=== PATIENT | female | born 1930 | race Caucasian/White ===

== ENCOUNTER 2016-05-17 09:23 | Outpatient (CLI) | payer MEDICARE, OTHER ==
[~2016-05-17] VITALS: Ht 157.5 cm; Wt 65.5 kg
[~2016-05-17 09:23] MED LIST: AMLO2.5T PO; ASPI-731 PO; CALC-656 PO; CEPH500C PO; DCS100C PO; DIPH25TA82 PO; ESTR0.5T3 PO; HYDR-3714 PO; LABE100T2 PO; LANS30CA8 PO; LRT10T PO; LVT.088T PO; MINERALS PO; POTASSIUM PO
[2016-05-17] MEDS ORDERED: GABA-488 PO (09:37)
[2016-05-17] MEDS ORDERED: [UNRECOGNIZED DRUG - CODE] PO (09:37)
[2016-05-17] MEDS ORDERED: PAPA1TAB11 PO (09:37)
[2016-05-17] MEDS ORDERED: GARL10002 PO (09:37)
[2016-05-17] MEDS ORDERED: PANT40TA3 PO (09:37)
[2016-05-17 09:44] VITALS: BP 117/68
== END 2016-05-17 10:08 | disposition home or self-care (01) ==
LOC: PREOP 09:23
PROVIDERS: ATTEND Podiatrist Foot & Ankle Surgery
DX: Z01.818 Encounter for other preprocedural examination (principal); Z11.2 Encounter for screening for other bacterial diseases; M20.12 Hallux valgus (acquired), left foot; M20.42 Other hammer toe(s) (acquired), left foot; M21.622 Bunionette of left foot
CPT/HCPCS: 87081

== ENCOUNTER 2016-05-20 10:42 | Day surgery (SDC) | payer MEDICARE, OTHER ==
--- NOTE | 2016-05-17 12:41 | HISTORY AND PHYSICAL ---
DATE OF ADMISSION: 05/20/2016 DICTATING PHYSICIAN: Dr. Barton CHIEF COMPLAINT: To have left foot surgery by Dr. Juarez, a bunion and 3 hammertoes corrected. ALLERGIC TO MEDICATIONS: CODEINE. MEDICATIONS NOW ON: 1. Amlodipine 2.5 mg. 2. Baby aspirin 85. 3. Levothyroxine 88. 4. Labetalol 100 mg half tablet a day. 5. Estradiol 0.5 mg 1 tablet 3 times a week. 6. Benadryl 25 mg 1 daily. 7. Gabapentin 300 mg, 1 t.i.d. 8. Potassium 84 mg 1 b.i.d. 9. Calcium plus vitamin D 1 b.i.d. 10. Papaya enzyme complex 2 tablets 2 times a day. 11. Protonix 1 daily. 12. Metoclopramide 1 tablet daily. 13. Garlic 1000 mg. SURGERIES: 1. Bleeding diverticula 2014. 2. Cataract surgery both eyes. 3. Bleeding cyst in ovary. 4. Had hysterectomy. 5. Rectal repair. 6. Gallbladder surgery. 7. Knee replacement. 8. Toe operated on. 9. Cervical cancer. 10. Rotator cuff surgery, left upper arm. 11. Bunion removed right foot. 12. 2 lumps removed from left breast. 13. Screen put in vagina. 14. Rotary cuff surgery on right shoulder. 15. Toe operations on right foot. FAMILY HISTORY: Denies asthma, TB, diabetes, heart disease, lung disease, cancer. REVIEW OF SYSTEMS: HEAD: Denies headache, dizziness, fainting. EYES, EARS, NOSE, THROAT: Denies diplopia, tinnitus, sore throat. HEART: Denies heart murmur, chest pain, shortness of breath. LUNGS: Denies asthma, TB, coughing, congestion, smoking or wheezing. GASTROINTESTINAL: Appetite okay. Denies blood, pain, or frequency. GENITOURINARY: Denies dysuria, pyuria, hematuria. GASTROINTESTINAL: Denies ulcers or vomiting. PHYSICAL EXAMINATION: The patient is a white female, well-nourished, well-developed, in no acute respiratory distress at rest. Weight 142, blood pressure 110/70, pulse 72. EARS: Not inflamed. EYES: No conjunctivitis or icterus. THROAT: Not inflamed. NECK: Thyroid not enlarged. No abnormal cervical lymphadenopathy noted. No carotid bruits. HEART: Regular rate and rhythm. LUNGS: Clear to auscultation. ABDOMEN: Soft. Liver and spleen nonpalpable. EXTREMITIES: No pretibial edema. Good dorsalis pedis pulses. PLAN: The patient okay to have surgery. We will be on standby if has any problems. Job ID: [id number] Dictated Date: 05/17/2016 11:58:02 Early Childhood Director Date: 05/17/2016 12:34:21/laure
[~2016-05-20] VITALS: Ht 157.5 cm; Wt 65.5 kg
[~2016-05-20 10:42] MED LIST changes: +GABA-488 PO; +GARL10002 PO; +PANT40TA3 PO; +PAPA1TAB11 PO; +[UNRECOGNIZED DRUG - CODE] PO
[2016-05-20] MEDS ORDERED: ceFAZolin 1 GM/NS 50 ML IVPB IV ONE ×2 (11:30)
[2016-05-20 12:00] VITALS: BP 134/77
[2016-05-20] MEDS ORDERED: DEXAMETHASONE PF 10 MG/ML (DECADRON) VIAL ONE ×2 (12:28→13:57)
[2016-05-20] MEDS ORDERED: LIDOCAINE 1% INJ 20 ML (XYLOCAINE) VIAL ONE (12:28)
[2016-05-20] MEDS ORDERED: BUPIVACAINE 0.5% 30 ML (SENSORCAINE) VIAL ONE (12:28)
[2016-05-20] MEDS: LACTATED RINGERS 1,000 ML IV PRN ×2 (12:29→14:03)
[2016-05-20] MEDS ORDERED: FAMOTIDINE 20MG/2ML IV (PEPCID) IVP ONE (12:30)
[2016-05-20] MEDS ORDERED: proPOfol 200 MG/20 ML (DIPRIVAN) VIAL IV ONE (12:30)
[2016-05-20] MEDS ORDERED: SEVOFLURANE (ULTANE) 15 ML INHAL SOLN ONE ×9 (12:30→15:14)
[2016-05-20] MEDS ORDERED: LIDOCAINE PF 2% 10 ML (XYLOCAINE) AMP ONE (12:30)
[2016-05-20] MEDS ORDERED: fentaNYL INJECTION 100 MCG/2 ML AMP ONE ×2 (12:30→13:48)
[2016-05-20] MEDS ORDERED: MIDAZOLAM 2 MG/2 ML (VERSED) VIAL ONE (12:30)
[2016-05-20] MEDS ORDERED: LACTATED RINGERS 1,000 ML IV ONE ×2 (12:30→13:39)
--- NOTE | 2016-05-20 12:38 | Progress Note-Pre Operative ---
Pre-Operative Progress Note H&P Reviewed The H&P was reviewed, patient examined and no changes noted. Date H&P Reviewed: May 20, 2016 Time H&P Reviewed: 12:38 Pre-Operative Diagnosis: Hallux Valgus, Hammertoes 2,3,4,5, Tailor's bunion, all left foot ZOEY PERDUE DPM May 20, 2016 12:38 pm
[2016-05-20] MEDS ORDERED: ESMOLOL 100 MG/10 ML (BREVIBLOC) VIAL ONE (14:33)
[2016-05-20] MEDS ORDERED: ONDANSETRON 4 MG/2 ML (SDV) Z0FRAN IV PRN (15:30)
[2016-05-20] MEDS ORDERED: morphine INJ 10 MG/ML 1ML (SYR OR VIAL) IV PRN (15:30)
--- NOTE | 2016-05-20 15:33 | Progress Note-Post Operative ---
Post-Operative Progess Note Surgeon (s)/Toy Trains And Accessories Salesperson (s) Surgeon ZOEY PERDUE DPM Toy Tra[employer] And Accessories Salesperson: none Pre-Operative Diagnosis Hallux Valgus, Hammertoes 2,3,4,5, Tailor's bunion, all left foot Post-Operative Diagnosis Same Post-Op Procedure Note Date of Procedure: May 20, 2016 Name of Procedure Performed: Modified Freed bunionectomy left Reduction of Hammertoes 2,3,4,5 left Tailor's bunoinectomy, left Description of the Procedure: see above Findings of the Procedure Good reduction of deformities Anesthesia Type General Estimated blood loss (mL): Minimal Specimen(s) collected/removed none ZOEY PERDUE DPM May 20, 2016 3:33 pm
[2016-05-20] MEDS ORDERED: LACTATED RINGERS 1,000 ML IV SCH (15:34)
[2016-05-20] MEDS ORDERED: HYDR-3812 PO (15:37)
[2016-05-20] MEDS ORDERED: TRAM-42 PO (15:37)
[2016-05-20] MEDS ORDERED: CEPH500C PO (15:37)
[2016-05-20] MEDS ORDERED: ONDANSETRON 4 MG/2 ML (SDV) Z0FRAN IVP PRN (15:45)
[2016-05-20] MEDS ORDERED: HYDROcodone/APAP 5 MG/325 MG (LORTAB) TAB PO PRN (15:45)
[2016-05-20 16:20] VITALS: BP 140/94
[2016-05-20 16:50] VITALS: BP 147/77
--- NOTE | 2016-05-20 17:04 | Physical Therapy Ortho Eval ---
PT Orthopedic Evaluation Type of Surgery left bunionectomy and repair of 4 hammer toes Prior Level of Function Current Living Status: Spouse Locomotion (Upon Admit): Independent Established Durable Medical Eq: Shower Chair, 3 in 1 Commode, Toilet Riser, Crutches Subjective Subjective Pt reports this was elective surgery. She has been through it before. Pt has used crutches previously following orthopedic surgery. She reports no nausea or pain. Entry Into Home: Level Entry Steps Into Home: 0 Steps Inside Home: 0 Other Obstacles: reports no stairs to get into the home. Objective Objective LE ROM is WFL, (B) strength gross 4/5 Motor Control Motor Control: Motor Control WNL ROM ROM: WFL Strength Strength: WFL gross 4/5 throughout (B) LEs Transfer Transfers (B, C, W/C) (FIM): 5 supervision for safety Gait Gait Assistive Device: Crutches stable using crutches with PWB on the (L). Used a 4 point gait pattern. Slow but steady with juliet. Distance (FIM): 7=490-55 ft Distance: 50 Gait Level of Assist: 5 Summary/Comments Pt safe with ambulation using crutches on level surface. advised to assist by opening doors and clearing any obstructions. Treatment Rendered Treatment: Gait Train educated on safety and PWB status. Plan Treatment Plan: Discharge Pt seen one visit for instruction on use of axillary crutches, education on home safety, and PWB. Pt is dismissed from therapy at this time to be discharged to home as prior to admission. Functional codes based on ojbective measures G8978 CI G8979 CI G8980 CI PT/Family Agrees to Plan: Yes Time Time In: 1640 Time Out: 1705 Total Billed Treatment Time: 25 Billed Treatment Time visit, evaluation low complexity 25 minutes Yes JESSICA GARIBAY PT May 20, 2016 17:04
[2016-05-20 17:20] VITALS: BP 147/77
[2016-05-20 17:40] VITALS: BP 147/77
--- NOTE | 2016-05-20 18:26 | Diagnostic Imaging Report ---
INDICATION: Postop for left hallux hammertoe. FINDINGS: There are pins within the second, third, and fourth phalanges. Alignment is good. There is a moderate valgus deformity of the first MP joint. There is anchor screw within the lateral navicular. IMPRESSION: Postoperative pinning of the second, third, and fourth toes. Dictated by: Dictated on workstation # [id number]
--- NOTE | 2016-05-23 08:36 | OPERATIVE REPORT ---
PROCEDURE PHYSICIAN: JENNIFER PERDUE DATE OF PROCEDURE: 05/20/2016 SURGEON: Jennifer Perdue DPM PREOPERATIVE DIAGNOSES: 1. Hallux abductovalgus. 2. 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 3. Amy's bunion, left foot. POSTOPERATIVE DIAGNOSES: 1. Hallux abductovalgus. 2. 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 3. Amy's bunion, left foot. PROCEDURES: 1. Modified Freed bunionectomy, left. 2. Reduction of hammertoe with arthrodesis, second, 3rd and 4th digits, left foot. 3. Arthroplasty left 5th toe. 4. Amy's bunionectomy, left 5th metatarsal. WOUND CLASS: Clean. ANESTHESIA: General. HEMOSTASIS: Pneumatic thigh tourniquet at 250 mmHg. INDICATION: This 86-year-old female presents complaining of a painful left foot. Conservative therapy is met with unsatisfactory results and the patient is agreeable to surgical intervention after risk and complications were discussed at length. No guarantees were extended to the patient and she is willing to proceed. PROCEDURE: The patient was brought back to operating table, placed in a secure, supine position. General anesthetic was then induced. A pneumatic thigh tourniquet was placed on the left lower extremity over several layers of padding. The left foot was then prepped and draped in normal sterile manner. The left foot was then elevated, allowed to exsanguinate after which the tourniquet was inflated to 250 mmHg. Attention was then directed to the left first metatarsophalangeal joint where a 5 cm longitudinal linear incision was created. The incision was deepened in the same plane with great care to identify and retract all vital neurovascular structures. Only necessary blood vessels were cauterized as encountered. The incision was deepened down to the capsular tissue where a longitudinal capsulotomy was performed. The medial eminence of the first metatarsal head was resected utilizing a power sagittal saw. Next, a lateral release was performed. Blunt dissection was carried out into the first intermetatarsal space where the conjoined tendon of the abductor hallucis was identified and released. The lateral capsular tissue was also released with lateral capsulorrhaphy and fibular sesamoidal ligament release. The hallux was then forcibly abducted to release any additional fibers holding it in its abnormal position. Appropriate alignment of the left hallux was then appreciated at this time. The wound was flushed with copious amounts of normal saline and closure was then performed in layers. Deep closure was performed with 3-0 Vicryl, superficial with 4-0 Vicryl, skin closure with 4-0 Prolene in a horizontal mattress type stitch. Attention was then directed to the contracted toes 3, 4 and 5, where the same procedure was performed. An incision was created from the metatarsal phalangeal joint to the distal interphalangeal joint of the second, 3rd and 4th rays. The incisions were then deepened in the same plane with great care to identify and retract all vital neurovascular structures. Only necessary blood vessels were cauterized as encountered. The extensor tendons were then lengthened utilizing a Z slide lengthening technique. The extensor peters was released overlying the metatarsal phalangeal joint. A dorsal capsulorrhaphy as well as a release of the mediolateral, collateral ligaments was performed to the second, 3rd and 4th metatarsophalangeal joints. This allowed the proximal phalanx to come down into more rectus alignment. Next, utilizing a power sagittal saw, a Peg was created at the head of the proximal phalanx, followed by using a power bur. A hole was created to the base of the middle phalanx with a power bur. The wound was flushed with copious amounts of normal saline. Each the digit was then fixated in its corrected position utilizing a 0.054 K wire driven from proximal to distal, securing the arthrodesis sites in a rectus alignment. Appropriate alignment was appreciated to each digit. The excess K wire coming out of the toe was cut and a protective ball placed over the end of the wire. The wound was flushed with copious amounts of normal saline and closure was then performed in layers. Deep closure was performed with 3-0 Vicryl. Superficial closure was performed with 4-0 Vicryl, and skin closure with 4-0 Prolene in a horizontal mattress type stitch. Attention was then directed to the left 5th digit where adductovarus contracture was identified. Two semielliptical incisions were created at the dorsal aspect of the proximal interphalangeal joint in a proximal lateral to distal medial orientation. The circumscribed skin was removed in toto. Dissection was then carried out sharply through the extensor tendon. Release of the mediolateral, collateral ligaments allowed for visualization of the hypertrophic head of the proximal phalanx. The head turning machine operator was then resected utilizing a power sagittal saw. The wound was flushed with copious amounts of normal saline and closure was performed in layers. Deep closure was performed with 4-0 Vicryl, skin was reapproximated with 4-0 Vicryl, followed by 4-0 Prolene in a simple interrupted type stitch. Because the orientation of the incision, the digit was derotated into more rectus alignment. Attention was then directed to the dorsal aspect of the left 5th metatarsal head area where a 2.5 cm longitudinal linear incision was created. The incision was deepened down to the extensor tendon overlying the head of the 5th metatarsal which was quite tight. The tendon then had a Z-slide lengthening performed, allowing the proximal phalanx to come down into more rectus alignment. The incision was deepened down to the capsule and a lateral eminence to the 5th metatarsal head was identified and resected utilizing a power sagittal saw. A hand rasp was also utilized to smooth the 5th metatarsal head. The wound was flushed with copious amounts of normal saline and closure was performed in layers. Deep closure was performed with 3-0 Vicryl, superficial with 4-0 Vicryl, and skin closure with 4-0 Prolene in a horizontal mattress type stitch. Postoperative injection consisted of 24 mL of 0.5% Marcaine injected in a local infusion to the surgical sites. The tourniquet was released noting appropriate capillary fill time to all digits of the left foot. Postoperative dressing consisted of Betadine soaked Adaptic, sterile 4 x 4, sterile Kerlix, all secured with a Coban wrap. The patient tolerated the anesthesia and procedure well. She was transported from the operating room to the recovery area with vital signs stable and vascular status intact to all digits of the left foot. The patient was given postoperative instructions for partial weight-bearing with crutches. She was also given a prescription for Vicodin and Ultram. She indicated that she has a reaction to codeine but that was quite some time ago. She has never tried Vicodin before, so that was given to her as the first line of treatment for pain. If she has a GI reaction she will have Ultram as a backup. She was also given a prescription for Keflex. She is to follow-up in my office on 05/30 at 10 a.m. or sooner if necessary. Job ID: [id number] Dictated Date: 05/20/2016 15:51:15 Residential Sales Consultant Date: 05/23/2016 08:21:12 / laure
--- OUTSIDE RECORDS SUMMARY | 2016-06-12 08:08 | XMS REPORT | Continuity of Care Document ---
Author Author [facility] Organization [facility] Address Unknown Phone Unavailable Care Team Providers Care Heel Painter Name Role Phone Quispe Tamera PCP Unavailable Source Comments Some departments are not documenting in the electronic medical record. If you do not see the information that you expected, contact Release of Information in the Health Information Management department at [phone] for further assistance in locating additional records.[facility] Active Allergies and Adverse Reactions Allergen Noted Date Severity Reactions Comments Hydrocodone-Acetaminophen 06/22/2015 Low NAUSEA AND VOMITING Current Medications Prescription Sig. Disp. Refills Start End Date Status Date gabapentin (NEURONTIN) Take 300 mg by mouth Active 300 mg capsule three times daily. amLODIPine (NORVASC) 2.5 Take 2.5 mg by mouth Active mg tablet daily. BABY ASPIRIN PO Take by mouth daily. Active levothyroxine (SYNTHROID) Take 88 mcg by mouth Active 88 mcg tablet daily. labetalol (NORMODYNE) 100 Take 100 mg by mouth Active mg tablet daily. Indications: Per Patient 1/2 tab daily norethindrone/ethinyl Take 1 Tab by mouth three Active estradiol triphasic(+) times weekly. (ORTHO-NOVUM 7-7-7) 0.5/0.75/1-35 mg-mcg tablet loratadine (CLARITIN) 10 Take 10 mg by mouth Active mg tablet daily. Garlic 1,000 mg cap Take by mouth twice Active weekly. POTASSIUM PO Take by mouth twice Active daily. CALCIUM CARBONATE/VITAMIN Take by mouth twice Active D3 (CALCIUM + D PO) daily. pantoprazole DR Take 40 mg by mouth Active (PROTONIX) 40 mg tablet daily. PAPAYA ENZYME PO Take by mouth three Active times daily. Indications: 2 tablets 3 times a day melatonin 10 mg tab Take by mouth as Needed. Active WHEAT DEXTRIN/CALCIUM Take by mouth twice Active NO.15 (BENEFIBER PLUS daily. Indications: Per CALCIUM PO) patient 1 tablet SUCRALFATE PO Take by mouth twice Active daily. Indications: Per Patient 4 tablets Active Problems No known active problems Social History Tobacco Use Types Packs/Day Years Used Date Never Smoker Smokeless Tobacco: Never Used Alcohol Use Drinks/Week oz/Week Comments Yes 0 Standard 0.0 drinks or equivalent Last Filed Vital Signs Vital Sign Reading Time Taken Blood Pressure 120/76 07/31/2015 11:29 AM CDT Pulse 76 07/31/2015 11:29 AM CDT Temperature 36.4 C (97.6 F) 07/31/2015 11:29 AM CDT Respiratory Rate 16 07/31/2015 11:29 AM CDT Height 1.575 m (5' 2") 07/31/2015 11:29 AM CDT Weight 69.673 kg (153 lb 9.6 oz) 07/31/2015 11:29 AM CDT Body Mass Index 28.09 07/31/2015 11:29 AM CDT Oxygen Saturation 92% 06/22/2015 9:58 AM CDT Plan of Care Health Maintenance Due Date Last Done Comments Physical (Comprehensive) 1938 Exam Pertussis Vaccine 1942 Tetanus Vaccine 1948 Shingles Vaccine 1991 Osteoporosis Screening 1996 Prevnar/Pneumovax (#1) 1996 Influenza Vaccine 10/21/2016 Results from Last 3 Months Not on file
--- OUTSIDE RECORDS SUMMARY | 2016-06-12 08:08 | XMS REPORT | Continuity of Care Document ---
Author Author [facility] Organization [facility] Address Unknown Phone Unavailable Allergies Active Description Code Type Severity Reaction Onset Reported/Identified Relationship to Patient Clinical Status Yes acetaminophen [id number] Drug Allergy Unknown NAUSEA 05/17/2016 Yes codeine [id number] Drug Allergy Unknown NAUSEA 05/17/2016 Medications Problems Date Dx Coded Attending Type Code Diagnosis Diagnosed By 06/03/2013 NETTE DPM, ZOEY Q Ot 735.1 HALLUX VARUS 06/03/2013 NETTE DPM, ZOEY Q Ot 735.4 OTHER HAMMER TOE 06/03/2013 NETTE DPM, ZOEY Q Ot V57.1 PHYSICAL THERAPY NEC 06/03/2013 NETTE DPM, ZOEY Q Ot V58.69 OT MED,LT,CURRENT USE 08/01/2014 RUBEN BERNAL, BETSEY Fontenot Ot 721.0 05/17/2016 NETTE DPM, ZOEY Q Ot 735.1 HALLUX VARUS 05/17/2016 NETTE DPM, ZOEY Q Ot V72.63 PRE-PROCEDURAL LABORATORY EXAMINATION 05/17/2016 NETTE DPM, ZOEY Q Ot V72.81 [id number] CARDIOVASCULAR 05/17/2016 NETTE DPM, ZOEY Q Ot V72.84 EXAM PRE-OPERATIVE NOS 05/17/2016 NETTE DPM, ZOEY Q Ot V74.8 SCREEN-BACTERIAL DIS NEC 05/17/2016 BETSEY MIRANDA MD Ot 721.0 CERVICAL SPONDYLOSIS 05/18/2016 NETTE DPM, ZOEY Q Ot M20.12 HALLUX VALGUS (ACQUIRED), LEFT FOOT 05/18/2016 NETTE DPM, ZOEY Q Ot M20.42 OTHER HAMMER TOE(S) (ACQUIRED), LEFT FABIAN 05/18/2016 NETTE DPM, ZOEY Q Ot M21.622 BUNIONETTE OF LEFT FOOT 05/18/2016 NETTE DPM, ZOEY Q Ot Z01.818 ENCOUNTER FOR OTHER PREPROCEDURAL EXAMIN 05/18/2016 NETTE DPM, ZOEY Q Ot Z11.2 ENCOUNTER FOR SCREENING FOR OTHER BACTER 05/20/2016 NETTE DPM, ZOEY Q Ot M20.12 HALLUX VALGUS (ACQUIRED), LEFT FOOT 05/20/2016 NETTE DPM, ZOEY Q Ot M20.42 OTHER HAMMER TOE(S) (ACQUIRED), LEFT FABIAN 05/20/2016 NETTE DPM, ZOEY Q Ot M21.622 BUNIONETTE OF LEFT FOOT Procedures Results Test Result Range Methicillin resistant Staphylococcus aureus (MRSA) screening culture - 09:40 Methicillin resistant Staphylococcus aureus (MRSA) screening culture NEG NRG Encounters ACCT No. Visit Date/Time Discharge Status Pt. Type Provider Facility Loc./Unit Complaint [id number] 05/20/2016 10:42:00 2016 17:40:00 DIS Outpatient NETTE DPM, ZOEY Q [facility] LEFT HALLUX [id number] 05/17/2016 09:23:00 2016 10:08:00 DIS Outpatient NETTE DPM, ZOEY Q [facility] PREOP LEFT HALLUX [id number] 07/03/2014 15:25:00 2014 23:59:59 CLS Outpatient BETSEY MIRANDA MD [facility] RAD CERVICAL PAIN [id number] 06/03/2013 06:45:00 2013 16:35:00 DIS Outpatient NETTE DPM, ZOEY Q [facility] HALLX RIGHT [id number] 05/28/2013 12:29:00 2013 23:59:59 CLS Outpatient NETTE DPM, ZOEY Q [facility] PREOP HALLX RIGHT
== END 2016-05-20 17:40 | disposition home or self-care (01) ==
LOC: DELPENDDIS → SDC 10:42
PROVIDERS: ATTEND Podiatrist Foot & Ankle Surgery
DX: M20.12 Hallux valgus (acquired), left foot (principal); M20.42 Other hammer toe(s) (acquired), left foot; M21.622 Bunionette of left foot
CPT/HCPCS: 73620

== ENCOUNTER 2018-02-27 07:21 | Day surgery (SDC) | payer MEDICARE, OTHER ==
[~2018-02-27] VITALS: Ht 157.5 cm; Wt 54.5 kg
--- NOTE | 2018-02-27 07:10 | Progress Note-Pre Operative ---
Pre-Operative Progress Note H&P Reviewed The H&P was reviewed, patient examined and no changes noted. Date Seen by Provider: Feb 27, 2018 Time Seen by Provider: 08:00 Date H&P Reviewed: Feb 27, 2018 Time H&P Reviewed: 08:01 Pre-Operative Diagnosis: REILLY HUMPHREY MD Feb 27, 2018 07:10
[~2018-02-27 07:21] MED LIST changes: +ACHD5005 PO; +AMLO2.5T3 PO; +ASPI-999 PO; +FEXO180T84 PO; +LABE100T6 PO; +LEVO88TA54 PO; +MELA1TAB20 PO; +METO-527 PO; +PAPA1TAB10 PO; +TEMA15CA PO; +TRAM-42 PO; +WHEA144P PO; -[UNRECOGNIZED DRUG - CODE] PO; +[UNRECOGNIZED DRUG - OTHER] PO
--- OUTSIDE RECORDS SUMMARY | 2018-02-27 07:25 | XMS REPORT | Continuity of Care Document ---
Author Author [facility] Organization [facility] Address Unknown Phone Unavailable Allergies Active Description Code Type Severity Reaction Onset Reported/Identified Relationship to Patient Clinical Status Yes acetaminophen [id number] Drug Allergy Unknown NAUSEA 05/17/2016 Yes codeine [id number] Drug Allergy Unknown NAUSEA 05/17/2016 Medications There is no data. Problems Date Dx Coded Attending Type Code [...] 05/17/2016 NETTE DPM, ZOEY Q Ot V72.81 [id number] CARDIOVASCULAR 05/17/2016 NETTE DPM, ZOEY Q Ot V72.84 EXAM PRE-OPERATIVE NOS 05/17/2016 NETTE DPM, ZOEY Q Ot V74.8 SCREEN-BACTERIAL DIS NEC 05/17/2016 RUBEN BERNAL, BETSEY Fontenot Ot 721.0 CERVICAL SPONDYLOSIS 05/17/2016 NETTE DPM, ZOEY Q Ot M20.12 HALLUX VALGUS (ACQUIRED), LEFT FOOT 05/17/2016 NETTE DPM, ZOEY Q Ot M20.42 OTHER HAMMER TOE(S) (ACQUIRED), LEFT FABIAN 05/17/2016 NETTE DPM, ZOEY Q Ot M21.622 BUNIONETTE OF LEFT FOOT 05/17/2016 NETTE DPM, ZOEY Q Ot Z01.818 ENCOUNTER FOR OTHER PREPROCEDURAL EXAMIN 05/17/2016 NETTE DPM, ZOEY Q Ot Z11.2 ENCOUNTER FOR SCREENING FOR OTHER BACTER 05/18/2016 NETTE DPM, ZOEY Q Ot M20.12 [...] VALGUS (ACQUIRED), LEFT FOOT 05/20/2016 NETTE DPM, OZEY Q Ot M20.42 OTHER HAMMER TOE(S) (ACQUIRED), LEFT FABIAN 05/20/2016 NETTE DPM, ZOEY Q Ot M21.622 BUNIONETTE OF LEFT FOOT 02/22/2018 NETTE DPM, ZOEY Q Ot 735.1 HALLUX VARUS 02/22/2018 NETTE DPM, ZOEY Q Ot V72.63 PRE-PROCEDURAL LABORATORY EXAMINATION 02/22/2018 NETTE DPM, ZOEY Q Ot V72.81 [id number] CARDIOVASCULAR 02/22/2018 NETTE DPM, ZOEY Q Ot V72.84 EXAM PRE-OPERATIVE NOS 02/22/2018 NETTE DPM, ZOEY Q Ot V74.8 SCREEN-BACTERIAL DIS NEC 02/22/2018 RUBEN BERNAL, BETSEY Fontenot Ot 721.0 CERVICAL SPONDYLOSIS 02/23/2018 NETTE DPM, ZOEY Q Ot 735.1 HALLUX VARUS 02/23/2018 NETTE DPM, ZOEY Q Ot V72.63 PRE-PROCEDURAL LABORATORY EXAMINATION 02/23/2018 NETTE DPM, ZOEY Q Ot V72.81 [id number] CARDIOVASCULAR 02/23/2018 NETTE DPM, ZOEY Q Ot V72.84 EXAM PRE-OPERATIVE NOS 02/23/2018 NETTE DPM, ZOEY Q Ot V74.8 SCREEN-BACTERIAL DIS NEC 02/23/2018 RUBEN BERNAL, BETSEY Fontenot Ot 721.0 CERVICAL SPONDYLOSIS Procedures There is no data. Results Test Result Range Methicillin resistant Staphylococcus aureus (MRSA) screening culture - 09:40 Methicillin resistant Staphylococcus aureus (MRSA) screening culture NEG NRG Encounters ACCT No. Visit Date/Time Discharge Status Pt. Type Provider Facility Loc./Unit Complaint [id number] 02/23/2018 05:35:00 02/23/2018 12:31:00 DIS Outpatient REILLY QUINTANA MD [facility] PREOP FOREIGN BODY VAGINA [id number] 05/20/2016 10:42:00 05/20/2016 17:40:00 DIS Outpatient NETTE DPM, ZOEY Q [facility] LEFT HALLUX [id number] 05/17/2016 09:23:00 05/17/2016 10:08:00 DIS Outpatient NETTE DPM, ZOEY Q [facility] PREOP LEFT HALLUX [id number] 07/03/2014 15:25:00 07/03/2014 23:59:59 CLS Outpatient BETSEY MIRANDA MD [facility] RAD CERVICAL PAIN [id number] 06/03/2013 06:45:00 06/03/2013 16:35:00 DIS Outpatient NETTE DPM, ZOEY Q [facility] HALLX RIGHT [id number] 05/28/2013 12:29:00 05/28/2013 23:59:59 CLS Outpatient NETTE DPM, ZOEY Q [facility] PREOP HALLX RIGHT [id number] 02/27/2018 09:00:00 PEN Preadmit REILLY QUINTANA MD [facility] FOREIGN BODY VAGINA
--- OUTSIDE RECORDS SUMMARY | 2018-02-27 07:25 | XMS REPORT | Clinical Summary ---
Author Author [facility] Organization [facility] Address Unknown Phone Unavailable Care Team Providers Care Handmade Tile Artist Name Role Phone Jonah Mcknight MD Unavailable Tamera Quispe MS PCP Unavailable Source Comments Some departments are not documenting in the electronic medical record. If you do not see the information that you expected, contact Release of Information in the Health Information Management department at [phone] for further assistance in locating additional records.[facility] Allergies Comments Active Allergy Reactions Severity Noted Date Hydrocodone-Acetaminophen NAUSEA AND Low 06/22/2015 VOMITING Medications End Date Status Medication Sig Dispensed Refills Start Date Active gabapentin (NEURONTIN) Take 300 mg 0 300 mg capsule by mouth three times daily. Active amLODIPine (NORVASC) 2.5 Take 2.5 mg 0 mg tablet by mouth daily. Active BABY ASPIRIN PO Take by 0 mouth daily. Active levothyroxine (SYNTHROID) Take 88 mcg 0 88 mcg tablet by mouth daily. Active labetalol (NORMODYNE) 100 Take 100 mg 0 mg tabletIndications: Per by mouth Patient 1/2 tab daily daily. Indications: Per Patient 1/2 tab daily Active norethindrone/ethinyl Take 1 Tab by 0 estradiol triphasic(+) mouth three (ORTHO-NOVUM 7-7-7) times weekly. 0.5/0.75/1-35 mg-mcg tablet Active loratadine (CLARITIN) 10 Take 10 mg by 0 mg tablet mouth daily. Active Garlic 1,000 mg cap Take by 0 mouth twice weekly. Active POTASSIUM PO Take by 0 mouth twice daily. Active CALCIUM CARBONATE/VITAMIN Take by 0 D3 (CALCIUM + D PO) mouth twice daily. Active pantoprazole DR Take 40 mg by 0 (PROTONIX) 40 mg tablet mouth daily. Active PAPAYA ENZYME Take by 0 POIndications: 2 tablets mouth three 3 times a day times daily. Indications: 2 tablets 3 times a day Active melatonin 10 mg tab Take by 0 mouth as Needed. Active WHEAT DEXTRIN/CALCIUM Take by 0 NO.15 (BENEFIBER PLUS mouth twice CALCIUM PO)Indications: daily. Per patient 1 tablet Indications: Per patient 1 tablet Active SUCRALFATE POIndications: Take by 0 Per Patient 4 tablets mouth twice daily. Indications: Per Patient 4 tablets Active Problems No known active problems Family History Medical History Relation Name Comments Hypertension Father Heart Disease Mother Relation Name Status Comments Father Mother Social History Date Tobacco Use Types Packs/Day Years Used Never Smoker Smokeless Tobacco: Never Used Alcohol Use Drinks/Week oz/Week Comments Yes 0 Standard 0.0 drinks or equivalent Sex Assigned at Date Recorded Not on file Industry Job Start Date Occupation Not on file Not on file Not on file Travel End Travel History Travel Start No recent travel history available. Last Filed Vital Signs Time Taken Vital Sign Reading 07/31/2015 11:29 AM CDT Blood Pressure 120/76 07/31/2015 11:29 AM CDT Pulse 76 07/31/2015 11:29 AM CDT Temperature 36.4 C (97.6 F) 07/31/2015 11:29 AM CDT Respiratory Rate 16 06/22/2015 9:58 AM CDT Oxygen Saturation 92% - Inhaled Oxygen - Concentration 07/31/2015 11:29 AM CDT Weight 69.7 kg (153 lb 9.6 oz) 07/31/2015 11:29 AM CDT Height 157.5 cm (5' 2") 07/31/2015 11:29 AM CDT Body Mass Index 28.09 Plan of Treatment Health Maintenance Due Date Last Done Comments PHYSICAL (COMPREHENSIVE) 1938 EXAM DTAP/TDAP VACCINES (1 - 1949 Tdap) SHINGLES RECOMBINANT 1981 VACCINE (1 of 2) OSTEOPOROSIS 1996 SCREENING/MONITORING PNEUMONIA (PCV13/PPSV23) 1996 VACCINES (1 of 2 - PCV13) INFLUENZA VACCINE 09/20/2017 Results Not on filefrom Last 3 Months Insurance Payer Benefit Subscriber ID Type Phone Address Plan / Group MEDICARE MEDICARE xxxxxxxxxx Medicare PART A AND B AETNA AETNA xxxxxxxxxx SUPPLEMENT Advance Directives Patient has advance care planning documents on file. For more information, please contact: [facility] [address] [place] [address]
[2018-02-27 07:30] VITALS: BP 143/87
[2018-02-27] MEDS ORDERED: LACTATED RINGERS 1,000 ML IV PRN (07:36)
[2018-02-27] MEDS ORDERED: cefTRIAXone 1 GM/10 ML for IV (ROCEPHIN) ONE (07:42)
[2018-02-27] MEDS ORDERED: NS (IVPB) 50 ML ONE (07:42)
[2018-02-27] MEDS ORDERED: cefTRIAXone FOR IV USE 1,000 MG in NS (IVPB) 50 ML IV ONE (07:45)
--- NOTE | 2018-02-27 08:00 | NUR ---
PATIENT LAST TOOK ASA 02/20/18
--- NOTE | 2018-02-27 08:02 | Progress Note-Post Operative ---
Post-Operative Progess Note Surgeon (s)/Glazing Department Supervisor (s) Surgeon REILLY QUINTANA MD Glazing Department Supervisor: NONE Pre-Operative Diagnosis F.B VAGINA Post-Operative Diagnosis SAME Procedure & Operative Findings Date of Procedure 02/27/18 Procedure Performed/Findings REMOVAL OF F.B VAGINA Anesthesia Type GENERAL Estimated Blood Loss Estimated blood loss (mL): NEGLIGIBLE Specimens/Packing Specimens Removed F.B VAGINA Packing: NONE REILLY QUINTANA MD Feb 27, 2018 08:02
--- NOTE | 2018-02-27 08:04 | Discharge Inst-Urology ---
Discharge Inst-Urology Discharge Medications New, Converted, or Re-newed RX: RX on Chart Patient Instructions/Follow Up Plan Please make appointment to been seen in office in 2 weeks. Rest and off ASA till then Showers, no bath Keep bowels soft and moving Increase oral fluids for 48 hours and then as needed. Diet as tolerated. If questions or concerns contact your physician Or seek help at emergency department. REILLY QUINTANA MD Feb 27, 2018 08:04
[2018-02-27] MEDS ORDERED: SEVOFLURANE (ULTANE) 15 ML INHAL SOLN ONE ×2 (08:08→08:38)
[2018-02-27] MEDS ORDERED: proPOfol 200 MG/20 ML (DIPRIVAN) VIAL IV ONE (08:08)
[2018-02-27] MEDS ORDERED: fentaNYL INJECTION 100 MCG/2 ML AMP ONE (08:08)
[2018-02-27] MEDS ORDERED: ONDANSETRON 4 MG/2 ML (SDV) Z0FRAN ONE (08:08)
[2018-02-27] MEDS ORDERED: LIDOCAINE PF 2% 5 ML (XYLOCAINE) VIAL ONE (08:08)
[2018-02-27] MEDS ORDERED: MEPERIDINE (DEMEROL) INJ 50 MG/ML IVP ONE (08:30)
[2018-02-27] MEDS ORDERED: ONDANSETRON 4 MG/2 ML (SDV) Z0FRAN IVP PRN (08:30)
[2018-02-27] MEDS ORDERED: morphine INJ 10 MG/ML 1ML (SYR OR VIAL) IVP ONE (08:30)
[2018-02-27] MEDS ORDERED: PHENYLEPHRINE 100 MCG/ML 10 ML (ANESTHESIA) SYR ONE (08:34)
[2018-02-27] MEDS ORDERED: ESTRADIOL VAGINAL CREAM 42.5 GM (ESTRACE) VG ONE (08:35)
[2018-02-27] MEDS ORDERED: CIPR-225 PO (09:05)
[2018-02-27] MEDS ORDERED: EST30C VG (09:05)
[2018-02-27 09:45] VITALS: BP 136/87
[2018-02-27 10:15] VITALS: BP 134/70
[2018-02-27 10:45] VITALS: BP 138/78
--- NOTE | 2018-02-27 13:25 | Anesthesia-General Post-Op ---
General Patient Condition Mental Status/LOC: Same as Preop Cardiovascular: Satisfactory Nausea/Vomiting: Absent Respiratory: Satisfactory Pain: Controlled Complications: Absent Post Op Complications Complications None Follow Up Care/Instructions Patient Instructions None needed. Anesthesia/Patient Condition Patient Condition Patient is doing well, no complaints, stable vital signs, no apparent adverse anesthesia problems. No complications reported per nursing. MANUEL WILSON CRNA Feb 27, 2018 13:25
--- NOTE | 2018-02-27 15:04 | OPERATIVE REPORT ---
DATE OF SERVICE: 02/27/2018 PREOPERATIVE DIAGNOSIS: Foreign body in vagina. POSTOPERATIVE DIAGNOSIS: Foreign body in vagina. OPERATION PERFORMED: Removal of foreign body in vagina. SURGEON: Bandar Quintana MD. ANESTHESIA: General. COMPLICATIONS: None. DESCRIPTION OF PROCEDURE: Under satisfactory general anesthesia, the patient in extended lithotomy position, genitalia were prepped and draped in the usual sterile fashion with separate vaginal prep. A vaginal retractor was applied, again visualized the suture coming out from the suture line at the area of the cuff previous surgery on the right side. The anterior vaginal mucosa was completely normal. There was no extruded tissue, sling or patches. The area under the mid urethra was completely clean. There were no other stitches coming out from the suture line. I went ahead and completely removed the offending suture on the right side and cauterized the area. No further foreign body sutures or sling tissues. Estrace vaginal cream was applied. Estimated blood loss negligible. The patient tolerated the procedure and anesthesia well and was sent to recovery room in stable condition. Job ID: [id number] DocumentID: [id number] Dictated Date: 02/27/2018 09:24:56 Commercial Credit Portfolio Manager Date: 02/27/2018 15:04:17 Dictated By: BANDAR QUINTANA MD [facility]
== END 2018-02-27 10:45 | disposition home or self-care (01) ==
LOC: SDC 07:21
PROVIDERS: ATTEND Urology
DX: T19.2XXA Foreign body in vulva and vagina, initial encounter (principal); I10 Essential (primary) hypertension; I27.20 Pulmonary hypertension, unspecified; G47.33 Obstructive sleep apnea (adult) (pediatric); K21.9 Gastro-esophageal reflux disease without esophagitis; Z79.82 Long term (current) use of aspirin; Z79.899 Other long term (current) drug therapy
CPT/HCPCS: 87081; 88300

== ENCOUNTER 2018-07-26 09:50 | Observation (INO) | payer MEDICARE ==
[~2018-07-26] VITALS: Ht 157.5 cm; Wt 55.3 kg
[~2018-07-26 09:50] MED LIST changes: -AMLO2.5T3 PO; +AMLO2.5T4 PO; +CIPR-225 PO; +EST30C VG
--- OUTSIDE RECORDS SUMMARY | 2018-07-26 10:14 | XMS REPORT ---
Author Author CHRISTIN CARDONA [facility] Address [address] [place] [address] Care Team Providers Care Tube Wrapper Name Role Phone CHRISTIN CARDONA Unavailable PROBLEMS Type Condition ICD9-CM Code [id number] Code Onset Dates Condition Status SNOMED Code Problem Acquired hypothyroidism E03.9 Active 149399775 Problem Hyperlipidemia, mixed E78.2 Active 812371447 Problem Primary insomnia F51.01 Active 8710905 Problem Essential (primary) hypertension I10 Active 00120423 Problem Congenital hiatus hernia Q40.1 Active 60422486 Problem Pulmonary hypertension I27.20 Active 40169648 Problem Chronic fatigue R53.82 Active 64955184 Problem Vitamin D deficiency E55.9 Active 99379427 Problem Chronic maxillary sinusitis J32.0 Active 14851318 Problem Esophageal reflux K21.9 Active 770286703 Problem TMJ (temporomandibular joint disorder) M26.609 Active 82750163 Problem Diverticulosis K57.90 Active 120225159 Problem Colon polyp K63.5 Active 84389067 Problem IBS (irritable bowel syndrome) K58.9 Active 75367575 ALLERGIES No Information ENCOUNTERS Encounter Location Date Diagnosis [address] [address] June, [address] [address] June, Sinus congestion R09.[address] [address] May, Chronic maxillary sinusitis J32.0 and Hiatal hernia K44.[address] [address] May, [address] [address] Apr, [address] [address] Apr, Chronic fatigue R53.[address] [address] Apr, [address] [address] Apr, Breast lump N63.[address] [address] Apr, Breast lump N63.[address] [address] Apr, Breast lump N63.0 and Breast mass, left N63.[address] [address] Mar, Pulmonary hypertension I27.20 ; Acquired hypothyroidism E03.9 ; Esophageal reflux K21.9 ; Congenital hiatus hernia Q40.1 ; IBS (irritable bowel syndrome) K58.9 ; TMJ (temporomandibular joint disorder) M26.609 ; Hypothyroidism E03.9 ; Colon polyp K63.5 ; Diverticulosis K57.90 ; Essential (primary) hypertension I10 ; Hyperlipidemia, mixed E78.2 ; Vitamin D deficiency E55.9 ; Acute gastric ulcer without hemorrhage or perforation K25.3 ; Breast mass, left N63.20 and Primary insomnia F51.01 [facility] [address] [address] Mar, [address] [address] Mar, [address] [address] Feb, [address] [address] Feb, [facility] [id number] [address] Jan, [facility] [address] [id number] [address] Jan, [facility] [address] [id number] [address] Jan, [facility] [address] [facility] [id number] [place] [address] Jan, [facility] [address] [facility] [id number] [address] Dec, [facility] [address] [facility] [id number] [place] [address] Nov, IMMUNIZATIONS No Known Immunizations SOCIAL HISTORY Never Assessed REASON FOR VISIT Breast lump, left, JDugan RT.R.M. PLAN OF CARE VITAL SIGNS MEDICATIONS Unknown Medications RESULTS Name Result Date Reference Range MAMMOGRAM : DIAGNOSTIC 3D, BILATERAL (IN HOUSE) 2018-04-27 PROCEDURES Procedure Date Ordered Result Body Site MAMMOGRAM : DIAGNOSTIC 3D, ??BILATERAL Medicare April 27, 2018 INSTRUCTIONS MEDICATIONS ADMINISTERED No Known Medications MEDICAL (GENERAL) HISTORY Type Description Date Medical History Pulmonary hypertension Medical History Esophageal reflux Medical History Congenital hiatus hernia Medical History IBS (irritable bowel syndrome) Medical History TMJ (temporomandibular joint disorder) Medical History Hypothyroidism Medical History Colon polyp Medical History Diverticulosis Medical History Essential (primary) hypertension Medical History Hyperlipidemia, mixed Medical History Vitamin D deficiency Surgical History foot surgery, bilat Surgical History hemorrhoidectomy Surgical History EGD, 2005, 02/27/2008, 03/17/2010, 06/16/2011, 01/21/2015, 06/21/2017 Surgical History hysterectomy, abdominal, total Surgical History cholecystectomy Surgical History luis miguel fundoplication Surgical History right knee replacement Surgical History cyst removal, cysty Surgical History appendectomy Surgical History dilatation and curettage 1953 Surgical History rotator cuff tear repair, right 11/2006 Surgical History breast biopsy, 2 lumps removed 05/22/2006 Surgical History colonoscopy, 03/17/2010, 01/21/2015 Surgical History bladder surgery, repair
--- OUTSIDE RECORDS SUMMARY | 2018-07-26 10:14 | XMS REPORT | Clinical Summary ---
Author Author [facility] Organization [facility] Address Unknown Phone Unavailable Care Team Providers Care Tufting Creeler Name Role Phone Jonah Mcknight MD Unavailable Tamera Quispe MS PCP Unavailable Source Comments Some departments are not documenting in the electronic medical record. If you d o not see the information that you expected, contact Release of Information in [facility] [place] Information Management department at [phone] for further assistan ce in locating additional records.[facility] Allergies Comments Active Allergy Reactions [...] (1 of 2 - PCV13) INFLUENZA VACCINE 11/20/2018 Results Not on filefrom Last 3 Months Insurance Type Payer Benefit Subscriber ID Effective Phone Address Plan / Dates Group Medicare MEDICARE MEDICARE xxxxxxxxxx 1996-P PART A AND resent B AETNA AETNA xxxxxxxxxx 1996-P SUPPLEMENT resent Advance Directives Patient has advance care planning documents on file. For more information, duke nguyen contact: [facility] [address] [place] [address]
--- OUTSIDE RECORDS SUMMARY | 2018-07-26 10:14 | XMS REPORT ---
Author Author CHRISTIN CARDONA [facility] Address [address] [place] [address] Care Team Providers Care Mass Spectrometry Manager Name Role Phone CHRISTIN CARDONA Unavailable PROBLEMS Type Condition ICD9-CM Code ZLY89-OS Code Onset Dates Condition Status SNOMED Code Problem Acquired hypothyroidism E03.9 Active 199368443 Problem Hyperlipidemia, mixed E78.2 Active 223639979 Problem Primary insomnia F51.01 Active 2537085 Problem Essential (primary) hypertension I10 Active 25236013 Problem Congenital hiatus hernia Q40.1 Active 09571277 Problem Pulmonary hypertension I27.20 Active 20187168 Problem Chronic fatigue R53.82 Active 64944881 Problem Vitamin D deficiency E55.9 Active 71628543 Problem Chronic maxillary sinusitis J32.0 Active 42253884 Problem Esophageal reflux K21.9 Active 170986833 Problem TMJ (temporomandibular joint disorder) M26.609 Active 04297184 Problem Diverticulosis K57.90 Active 010087989 Problem Colon polyp K63.5 Active 07683345 Problem IBS (irritable bowel syndrome) K58.9 Active 96396514 ALLERGIES No Information ENCOUNTERS Encounter Location Date Diagnosis [address] [address] June, [address] [address] June, Sinus congestion R09.[address] [address] May, Chronic maxillary sinusitis J32.0 and Hiatal hernia K44.[address] [address] May, [address] [address] Apr, [address] [address] Apr, Chronic fatigue R53.[address] [address] Apr, [address] [address] Apr, Breast lump N63.[address] [address] Apr, Breast lump N63.[address] [address] Apr, Breast lump N63.0 and Breast mass, left N63.[address] [address] Mar, Pulmonary hypertension I27.20 ; Acquired hypothyroidism [...] mass, left N63.20 and Primary insomnia F51.01 [facility] [address] [address] Mar, [address] [address] Mar, [address] [address] Feb, [address] [address] Feb, [facility] [id number] [address] Jan, [facility] [id number] [address] Jan, [facility] [id number] [address] Jan, [facility] [address] [facility] [id number] [place] [address] Jan, [facility] [address] [facility] [id number] [address] Dec, [facility] [address] [facility] [id number] [address] Nov, IMMUNIZATIONS No Known Immunizations SOCIAL HISTORY Never Assessed REASON FOR VISIT ultrasound, Yamini Owens RDMS, RVT PLAN OF CARE Activity Details Pending Test Ultrasound : BREAST, LEFT, LIMITED (IN HOUSE) VITAL SIGNS MEDICATIONS Unknown Medications RESULTS No Results PROCEDURES Procedure Date Ordered Result Body Site ULTRASOUND BREAST LIMITED April 27, 2018 INSTRUCTIONS MEDICATIONS ADMINISTERED No [...]
--- OUTSIDE RECORDS SUMMARY | 2018-07-26 10:15 | XMS REPORT | Continuity of Care Document ---
Author Organization Unknown Address Unknown Allergies Active Description Code Type Severity Reaction Onset Reported/Identified Relationship to Patient Clinical Status Yes acetaminophen [id number] Drug Allergy Unknown NAUSEA 05/17/2016 Yes codeine [id number] Drug Allergy Unknown NAUSEA 05/17/2016 Medications There is no data. Problems Date Dx Coded Attending Type Code Diagnosis Diagnosed By 06/03/2013 NETTE DPM, ZOEY Q Ot 735.1 HALLUX VARUS 06/03/2013 NETTE DPM, ZOEY Q Ot 735.4 OTHER HAMMER TOE 06/03/2013 NETTE DPM, ZOEY Q Ot V57.1 PHYSICAL THERAPY NEC 06/03/2013 NETTE DPM, ZOEY Q Ot V58.69 OT MED,LT,CURRENT USE 08/01/2014 BETSEY MIRANDA MD Ot 721.0 05/17/2016 NETTE DPM, ZOEY Q Ot 735.1 HALLUX VARUS 05/17/2016 NETTE DPM, ZOEY Q Ot V72.63 PRE-PROCEDURAL LABORATORY EXAMINATION 05/17/2016 NETTE DPM, ZOEY Q Ot V72.81 [id number] CARDIOVASCULAR 05/17/2016 NETTE DPM, ZOEY Q Ot V72.84 EXAM PRE-OPERATIVE NOS 05/17/2016 NETTE DPM, ZOEY Q Ot V74.8 SCREEN-BACTERIAL DIS NEC 05/17/2016 BETSEY MIRANDA MD Ot 721.0 CERVICAL SPONDYLOSIS 05/17/2016 NETTE DPM, [...] 02/22/2018 NETTE DPM, ZOEY Q Ot V72.81 [id number] CARDIOVASCULAR 02/22/2018 NETTE DPM, ZOEY Q Ot V72.84 EXAM PRE-OPERATIVE NOS 02/22/2018 NETTE DPM, ZOEY Q Ot V74.8 SCREEN-BACTERIAL DIS NEC 02/22/2018 RUBEN BERNAL, BETSEY Fontenot Ot 721.0 CERVICAL SPONDYLOSIS 02/23/2018 LILIAN BERNAL, REILLY Torres Ot Z01.818 ENCOUNTER FOR OTHER PREPROCEDURAL EXAMIN 02/23/2018 NETTE DPM, ZOEY Q Ot 735.1 HALLUX VARUS 02/23/2018 NETTE DPM, ZOEY Q Ot V72.63 PRE-PROCEDURAL LABORATORY EXAMINATION 02/23/2018 NETTE DPM, ZOEY Q Ot V72.81 [id number] CARDIOVASCULAR 02/23/2018 NETTE DPM, ZOEY Q Ot V72.84 EXAM PRE-OPERATIVE NOS 02/23/2018 NETTE DPM, ZOEY Q Ot V74.8 SCREEN-BACTERIAL DIS NEC 02/23/2018 RUBEN BERNAL, BETSEY Fontenot Ot 721.0 CERVICAL SPONDYLOSIS 02/26/2018 REILLY QUINTANA MD, Ot Z01.818 ENCOUNTER FOR OTHER PREPROCEDURAL EXAMIN 02/27/2018 NETTE DPM, ZOEY Q Ot 735.1 HALLUX VARUS 02/27/2018 NETTE DPM, ZOEY Q Ot V72.63 PRE-PROCEDURAL LABORATORY EXAMINATION 02/27/2018 NETTE DPM, ZOEY Q Ot V72.81 [id number] CARDIOVASCULAR 02/27/2018 NETTE DPM, ZOEY Q Ot V72.84 EXAM PRE-OPERATIVE NOS 02/27/2018 NETTE DPM, ZOEY Q Ot V74.8 SCREEN-BACTERIAL DIS NEC 02/27/2018 RUBEN BERNAL, BETSEY Fontenot Ot 721.0 CERVICAL SPONDYLOSIS 02/27/2018 REILLY QUINTANA MD, Ot G47.33 OBSTRUCTIVE SLEEP APNEA (ADULT) (PEDIATR 02/27/2018 REILLY QUINTANA MD Ot I10 ESSENTIAL (PRIMARY) HYPERTENSION 02/27/2018 REILLY QUINTANA MD, Ot I27.20 PULMONARY HYPERTENSION, UNSPECIFIED 02/27/2018 REILLY QUINTANA MD, Ot K21.9 GASTRO-ESOPHAGEAL REFLUX DISEASE WITHOUT 02/27/2018 REILLY QUINTANA MD Ot T19.2XXA FOREIGN BODY IN VULVA AND VAGINA, INITIA 02/27/2018 REILLY QUINTANA MD, Ot Z79.82 INTERMEDIATE (CURRENT) USE OF ASPIRIN 02/27/2018 REILLY QUINTANA MD, Ot Z79.899 OTHER INTERMEDIATE (CURRENT) DRUG THERAPY 03/05/2018 REILLY QUINTANA MD, Ot G47.33 OBSTRUCTIVE SLEEP APNEA (ADULT) (PEDIATR 03/05/2018 REILLY QUINTANA MD Ot I10 ESSENTIAL (PRIMARY) HYPERTENSION 03/05/2018 REILLY QUINTANA MD, Ot I27.20 PULMONARY HYPERTENSION, UNSPECIFIED 03/05/2018 REILLY QUINTANA MD, Ot K21.9 GASTRO-ESOPHAGEAL REFLUX DISEASE WITHOUT 03/05/2018 REILLY QUINTANA MD, Ot T19.2XXA FOREIGN BODY IN VULVA AND VAGINA, INITIA 03/05/2018 REILLY QUINTANA MD Ot Z79.82 DIVE SUPERVISOR (CURRENT) USE OF ASPIRIN 03/05/2018 REILLY QUINTANA MD Ot Z79.899 OTHER INTERMEDIATE (CURRENT) DRUG THERAPY Procedures There is no data. Results Test Result Range Methicillin resistant Staphylococcus aureus (MRSA) screening culture - 05/17/16 09:40 Methicillin resistant Staphylococcus aureus (MRSA) screening culture NEG NRG Methicillin resistant Staphylococcus aureus (MRSA) screening culture - 02/27/18 07:40 Methicillin resistant Staphylococcus aureus (MRSA) screening culture NEG NRG Encounters ACCT No. Visit Date/Time Discharge Status Pt. Type Provider Facility Loc./Unit Complaint [id number] 07/05/2018 13:45:00 07/05/2018 23:59:59 CLS Outpatient CHRISTIN CARDONA [facility] [id number] 02/27/2018 07:21:00 02/27/2018 10:45:00 DIS Outpatient REILLY QUINTANA MD [facility] FOREIGN BODY VAGINA [id number] 02/23/2018 05:35:00 02/23/2018 12:31:00 DIS Outpatient REILLY QUINTANA MD [facility] PREOP FOREIGN BODY VAGINA [id number] 05/20/2016 10:42:00 05/20/2016 17:40:00 DIS Outpatient NETTE DPM, ZOEY Q [facility] LEFT HALLUX [id number] 05/17/2016 09:23:00 05/17/2016 10:08:00 DIS Outpatient NETTE DPM, ZOEY Q [facility] PREOP LEFT HALLUX [id number] 07/03/2014 15:25:00 07/03/2014 23:59:59 CLS Outpatient BETSEY MIRANDA MD [facility] RAD CERVICAL PAIN [id number] 06/03/2013 06:45:00 06/03/2013 16:35:00 DIS Outpatient NETTE DPM, ZOEY Q [facility] HALLX RIGHT [id number] 05/28/2013 12:29:00 05/28/2013 23:59:59 CLS Outpatient NETTE DPM, ZOEY Q [facility] PREOP SEVERANCEX RIGHT
--- OUTSIDE RECORDS SUMMARY | 2018-07-26 10:15 | XMS REPORT ---
Author Author CHRISTIN CARDONA [facility] Address [address] [place] [address] Care Team Providers Care Furniture Mover Driver Name Role Phone CHRISTIN CARDONA Unavailable PROBLEMS Type Condition ICD9-CM Code OUH43-IX Code Onset Dates Condition Status SNOMED Code Problem Acquired hypothyroidism E03.9 Active 151919642 Problem Hyperlipidemia, mixed E78.2 Active 075047485 Problem Primary insomnia F51.01 Active 6755326 Problem Essential (primary) hypertension I10 Active 27827921 Problem Congenital hiatus hernia Q40.1 Active 68131404 Problem Pulmonary hypertension I27.20 Active 39899580 Problem Chronic fatigue R53.82 Active 66084244 Problem Vitamin D deficiency E55.9 Active 80070629 Problem Chronic maxillary sinusitis J32.0 Active 83235472 Problem Esophageal reflux K21.9 Active 446928900 Problem TMJ (temporomandibular joint disorder) M26.609 Active 04417020 Problem Diverticulosis K57.90 Active 802183043 Problem Colon polyp K63.5 Active 61979773 Problem IBS (irritable bowel syndrome) K58.9 Active 09503290 ALLERGIES No Information ENCOUNTERS Encounter Location Date Diagnosis [address] [address] June, [address] [address] June, Sinus congestion R09.[address] [address] May, Chronic maxillary sinusitis J32.0 and Hiatal hernia K44.[address] [address] May, [address] [address] Apr, [address] [address] Apr, Chronic fatigue R53.[address] [address] Apr, [address] [address] Apr, Breast lump N63.[address] [address] Apr, Breast lump N63.[address] [address] Apr, Breast lump N63.0 and Breast mass, left N63.[address] [address] Mar, Pulmonary hypertension I27.20 ; Acquired hypothyroidism [...] mass, left N63.20 and Primary insomnia F51.01 [facility] [address] [address] Mar, [address] [address] Mar, [address] [address] Feb, [address] [address] Feb, [facility] [address] [id number] [address] Jan, [facility] [address] [id number] [address] Jan, [facility] [address] [id number] [address] Jan, [facility] [address] [facility] [place] [id number] [address] Jan, [facility] [address] [facility] [id number] [address] Dec, [facility] [address] [facility] [place] [id number], [place] [address] Nov, IMMUNIZATIONS No Known Immunizations SOCIAL HISTORY Never Assessed REASON FOR VISIT PLAN OF CARE VITAL SIGNS MEDICATIONS Unknown Medications RESULTS No Results PROCEDURES No Known procedures INSTRUCTIONS MEDICATIONS ADMINISTERED No Known Medications MEDICAL [...]
[2018-07-26] MEDS ORDERED: NS IV 1000 ML 1,000 ML IV STA (11:35)
[2018-07-26] MEDS ORDERED: FAMOTIDINE 20MG/2ML IV (PEPCID) IV STA (11:35)
[2018-07-26] MEDS ORDERED: ANTACID SUSP 30 ML UDC (MYLANTA) PO ONE (11:45)
[2018-07-26] MEDS ORDERED: KETOROLAC 30 MG/ML VIAL IVP ONE (11:45)
[2018-07-26] MEDS ORDERED: IOHEXOL 350 MG/ML 100 ML (OMNIPAQUE 350) VIAL IV ONE (11:45)
[2018-07-26] MEDS ORDERED: HOLD METFORMIN - RECEIVED CONTRAST 20 ML VIAL IV SCH (11:45)
[2018-07-26] MEDS ORDERED: NS 100 ML (IVPB) BAG IV ONE (11:45)
[2018-07-26] MEDS ORDERED: CATHETER FLUSH 10 ML SYR IV PRN (11:45)
[2018-07-26] MEDS ORDERED: LIDOCAINE 2% VISCOUS 15 ML UDC PO ONE (11:45)
[2018-07-26 11:59] LABS: HEMATOCRIT 39 % (35-52); HEMOGLOBIN 12.8 G/DL (11.5-16.0); MEAN CORPUSCULAR HEMOGLOBIN 31 PG (25-34); MEAN CORPUSCULAR HGB CONC 33 G/DL (32-36); MEAN CORPUSCULAR VOLUME 95 FL (80-99); RED CELL DISTRIBUTION WIDTH 14.7 % (10.0-14.5); WHITE BLOOD COUNT 4.8 10^3/uL (4.3-11.0)
[2018-07-26 12:00] LABS: BASOPHILS % (AUTO) 0 % (0-10); EOSINOPHILS # (AUTO) 0.1 10^3/uL (0.0-0.3); EOSINOPHILS % (AUTO) 2 % (0-10); LYMPHOCYTES # (AUTO) 1.1 X 10^3 (1.0-4.0); LYMPHOCYTES % (AUTO) 22 % (12-44); MEAN PLATELET VOLUME 10.3 FL (7.4-10.4); MONOCYTES # (AUTO) 0.6 X 10^3 (0.0-1.0); MONOCYTES % (AUTO) 13 % (0-12); NEUTROPHILS % (AUTO) 63 % (42-75); PLATELET COUNT 208 10^3/uL (130-400)
--- NOTE | 2018-07-26 12:08 | Diagnostic Imaging Report ---
CLINICAL INDICATION: Patient with chest pain and abdominal cramps. EXAM: Chest x-ray PA and lateral views. COMPARISONS: None. FINDINGS: Lungs/pleura: Chronic appearing increased lung markings in both lung bases. Lungs are otherwise clear. There is no pneumothorax. There is no pleural effusion. Mediastinum: Unremarkable. Pulmonary vasculature: Unremarkable. Heart: Unremarkable. Bones/extrathoracic soft tissue: There are hypertrophic spurs involving the thoracic spine. IMPRESSION: 1: There is no radiographic evidence of acute cardiopulmonary process. Dictated by: Dictated on workstation # [id number]
[2018-07-26 12:29] LABS: BILIRUBIN,TOTAL 0.4 MG/DL (0.1-1.0); CALCIUM 9.3 MG/DL (8.5-10.1); CREATININE SERUM 0.96 MG/DL (0.60-1.30); POTASSIUM 4.5 MMOL/L (3.6-5.0)
[2018-07-26 12:30] LABS: ALBUMIN 4.3 GM/DL (3.2-4.5); TOTAL PROTEIN 7.4 GM/DL (6.4-8.2)
[2018-07-26 12:42] LABS: BILIRUBIN,URINE NEGATIVE (NEGATIVE); CLARITY,URINE CLEAR; COLOR,URINE YELLOW; GLUCOSE, URINE (UA) NEGATIVE (NEGATIVE); KETONES,URINE NEGATIVE (NEGATIVE); LEUKOCYTE ESTERASE ,URINE NEGATIVE (NEGATIVE); NITRITE,URINE NEGATIVE (NEGATIVE); PROTEIN,URINE NEGATIVE (NEGATIVE); UROBILINOGEN,URINE 0.2 MG/DL (NORMAL)
[2018-07-26 12:43] LABS: BACTERIA,URINE NEGATIVE /HPF; SQUAMOUS EPITHELIAL CELL,UR 0-2 /HPF
--- NOTE | 2018-07-26 13:17 | Diagnostic Imaging Report ---
PROCEDURE: CT abdomen and pelvis with contrast. TECHNIQUE: Multiple contiguous axial images were obtained through the abdomen and pelvis after administration of intravenous contrast. Auto Exposure Controls were utilized during the CT exam to meet ALARA standards for radiation dose reduction. INDICATION: Right-sided abdominal pain The lung bases are clear. There is a sliding hiatal hernia. There is mitral annular calcification. There is minimal calcific atherosclerosis of the aorta. Liver appears normal. The gallbladder surgically absent. Pancreas appears normal. Spleen is not enlarged. Adrenals are normal. Kidneys appear normal. Urinary bladder appears normal. Uterus is surgically absent. Small intestine is not dilated. There is a moderate of stool throughout the colon. There is diffuse colonic diverticulosis without evidence of diverticulitis. The appendix is not seen. Impression: Diffuse colonic diverticulosis. No acute abnormalities seen. Dictated by: Dictated on workstation # [id number]
--- NOTE | 2018-07-26 13:21 | ED General ---
General Chief Complaint: General Problems/Pain Stated Complaint: ARRHYTHMIA; ABD/BACK CRAMPS Nursing Triage Note: Had an hour of feeling like her heart was beating fast yesterday. States HR has been normal today. States she has a rhythm problem that she takes meds for but does not remember the name. She has also been feeling a little dizzy and weak for the past week. States her blood pressure was higher than normal yesterday at 142/84. Is also having some pain in the left side of her head that is the same pain she had two months ago when she had a sinus infection. Nursing Sepsis Screen: No Definite Risk History of Present Illness Date Seen by Provider: Jul 26, 2018 Time Seen by Provider: 10:00 Initial Comments The patient is an 88-year-old female with a history of hypertension and hypothyroidism on levothyroxine. She has no known cardiac history but reports problems with intermittent palpitations ever since she was in her 40s, with no etiology for symptoms ever identified.. She presents with concern for acute onset of an episode of palpitations occurring yesterday during the daytime, with associated feeling of rapid heartbeat, mild shortness of breath and chest pressure, as well as associated lightheadedness. She states this resolved by last evening but it was quite severe while it was happening. Patient states those symptoms resolved and she continues to have some very mild residual lightheadedness/fatigue. Patient independently notes some right upper quadrant abdominal discomfort which has been present for the last 1-2 hours and which she states is a relatively common intermittent problem for her, but has been considerably worse than usual and more frequent over the last few days. She reports that pain is crampy and waxes and wanes and nothing seems to make it better or worse and particularly there is no improvement or worsening with food. The patient denies associated fevers, nausea or vomiting, diaphoresis, cold sweats or chills, shortness of breath or chest pain today, lower abdominal pain, flank pain, back pain, dysuria or hematuria, changes in bowel habits. She is pleasantly appropriate interactive and alert and in no acute distress and vital signs are appropriate upon initial evaluation in the emergency department. Allergies and Home Medications Allergies Coded Allergies: acetaminophen (Unverified Allergy, Unknown, NAUSEA, 07/26/18) codeine (Unverified Allergy, Unknown, NAUSEA, 07/26/18) Home Medications Amlodipine Besylate 2.5 Mg Tablet, 2.5 MG PO DAILY, (Reported) Ciprofloxacin HCl 500 Mg Tablet, 500 MG PO BID Prescribed by: MARITZA AMATO on 02/27/18904 Estrogens Conjugated 30 Gm Cr, 0.5 GM VG HS EVERY OTHER DAY STARTING TOMORROW 02/28/2018 Prescribed by: MARITZA AMATO on 02/27/18904 Fexofenadine HCl 180 Mg Tablet, 180 MG PO DAILY, (Reported) Garlic 1,000 Mg Capsule, 1,000 MG PO DAILY, (Reported) Labetalol HCl 100 Mg Tablet, 50 MG PO HS, (Reported) take 1/2 of 100mg tab Levothyroxine Sodium 88 Mcg Tablet, 88 MCG PO DAILY, (Reported) Melatonin/Pyridoxine HCl (B6) 1 Each Tab.mphase, 10 MG PO HS, (Reported) Papaya 1 Each Tablet, 2 EACH PO BID, (Reported) Temazepam 15 Mg Capsule, 15 MG PO HS, (Reported) Wheat Dextrin 144 Gm Powder, 1 TSP PO BID, (Reported) [flori support] , 2 TAB PO DAILY, (Reported) Patient Home Medication List Home Medication List Reviewed: Yes Review of Systems Review of Systems Constitutional: see HPI All Other Systems Reviewed Negative Unless Noted: Yes Past Kgmozmh-Pzokia-Ppldxa Hx Past Med/Social Hx: Reviewed Nursing Past Med/Soc Hx Patient Social History Alcohol Beverage of Choice: Beer Recent Foreign Travel: No Contact w/Someone Who Travel: No Recent Infectious Disease Expo: No Recent Hopitalizations: No Seasonal Allergies Seasonal Allergies: Yes Past Medical History Surgeries: Yes (D&C, OVARIAN CYSTECTOMY, VAGINAL MESH PLACED X2 ) Appendectomy, Gallbladder, Hysterectomy Respiratory: No Cardiac: Yes High Cholesterol, Hypertension, Irregular Heartbeat Neurological: No Reproductive Disorders: No B[employer]ING[employer]OCK [employer]ER History: Hysterectomy Sexually Transmitted Disease: No HIV/AIDS: No Genitourinary: Yes Gastrointestinal: Yes Gastroesophageal Reflux, Diverticulosis, Irritable Bowel Musculoskeletal: Yes Arthritis, Chronic Back Pain Endocrine: Yes Hypothyroidsim HEENT: Yes (cataracts removed, ) Loss of Vision: Bilateral Hearing Impairment: Denies Cancer: Yes Cervical What Type of Treatment Did You: Surgical Intervention Psychosocial: No Integumentary: No Blood Disorders: No Adverse Reaction/Blood Tranf: No (HAS HAD BLOOD WITH NO REACTION) Family Medical History Reviewed Nursing Family Hx Physical Exam Vital Signs Vital Signs - First Documented 07/26/18 10:26 Temp 96.7 Pulse 76 Resp 18 B/P (MAP) 149/69 (95) Pulse Ox 98 Capillary Refill : Less Than 3 Seconds Height, Weight, BMI Height: 5'2.00" Weight: 125lbs. 4.0oz. [id number]; 22.0 BMI Method:Stated General Appearance: No Apparent Distress Comments This is an elderly female appearing nontoxic and in no acute distress. Head is normocephalic and atraumatic. Neck is supple and nontender. Oropharynx is moist. Lungs are clear to auscultation in all stations. There is a normal S1 and S2 without rubs or gallops and capillary refill is appropriate, less 2 seconds globally. Abdomen is soft, nontender and nondistended. Skin is warm and dry without cyanosis, clubbing or edema. Psychiatrically, the patient demonstrates appropriate mood and affect and is alert. From a neurologic standpoint, cranial nerves II through XII are intact and there are no lateralizing deficits noted. Speech is normal. Leg which is normal. Coordination is normal. There is no dysmetria with necywn-vk-pmfg or axmy-tx-vkkb bilaterally. Strength is 5 out of 5 in all joints of bilateral upper and lower extremity. Sensation is intact to light touch in bilateral upper and lower extremity. The patient relates with a narrow, steady gait in the emergency department. She is alert and oriented 4. Progress/Results/Core Measures Suspected Sepsis Recent Fever Within 48 Hours: No Infection Criteria Present: None New/Unexplained Altered Menta: No Sepsis Screen: No Definite Risk SIRS Temperature:96.7 Pulse: 76 Respiratory Rate: 18 Laboratory Tests 07/26/18 11:51: White Blood Count 4.8 Blood Pressure 149 /69 Mean: 95 Laboratory Tests 07/26/18 11:51: Creatinine 0.96, Platelet Count 208, Total Bilirubin 0.4 Results/Orders Lab Results Laboratory Tests Test 07/26/18 11:51 07/26/18 12:28 Range/Units White Blood Count 4.8 4.3-11.0 10^3/uL Red Blood Count 4.08 L 4.35-5.85 10^6/uL Hemoglobin 12.8 11.5-16.0 G/DL Hematocrit 39 35-52 % Mean Corpuscular Volume 95 80-99 FL Mean Corpuscular Hemoglobin 31 25-34 PG Mean Corpuscular Hemoglobin Concent 33 32-36 G/DL Red Cell Distribution Width 14.7 H 10.0-14.5 % Platelet Count 208 130-400 10^3/uL Mean Platelet Volume 10.3 7.4-10.4 FL Neutrophils (%) (Auto) 63 42-75 % Lymphocytes (%) (Auto) 22 12-44 % Monocytes (%) (Auto) 13 H 0-12 % Eosinophils (%) (Auto) 2 0-10 % Basophils (%) (Auto) 0 0-10 % Neutrophils # (Auto) 3.0 1.8-7.8 X 10^3 Lymphocytes # (Auto) 1.1 1.0-4.0 X 10^3 Monocytes # (Auto) 0.6 0.0-1.0 X 10^3 Eosinophils # (Auto) 0.1 0.0-0.3 10^3/uL Basophils # (Auto) 0.0 0.0-0.1 10^3/uL Sodium Level 146 H 135-145 MMOL/L Potassium Level 4.5 3.6-5.0 MMOL/L Chloride Level 105 98-107 MMOL/L Carbon Dioxide Level 29 21-32 MMOL/L Anion Gap 12 5-14 MMOL/L Blood Urea Nitrogen 14 7-18 MG/DL Creatinine 0.96 0.60-1.30 MG/DL Estimat Glomerular Filtration Rate 55 BUN/Creatinine Ratio 15 Glucose Level 94 70-105 MG/DL Calcium Level 9.3 8.5-10.1 MG/DL Corrected Calcium 9.1 8.5-10.1 MG/DL Total Bilirubin 0.4 0.1-1.0 MG/DL Aspartate Amino Transf (AST/SGOT) 22 5-34 U/L Alanine Aminotransferase (ALT/SGPT) 16 0-55 U/L Alkaline Phosphatase 68 40-136 U/L Troponin T 11 H <=10 NG/L Pro-B-Type Natriuretic Peptide 127.9 H <75.0 PG/ML Total Protein 7.4 6.4-8.2 GM/DL Albumin 4.3 3.2-4.5 GM/DL Lipase 37 8-78 U/L Urine Color YELLOW Urine Clarity CLEAR Urine pH 7.0 5-9 Urine Specific [place] <=1.005 1.016-1.022 Urine Protein NEGATIVE NEGATIVE Urine Glucose (UA) NEGATIVE NEGATIVE Urine Ketones NEGATIVE NEGATIVE Urine Nitrite NEGATIVE NEGATIVE Urine Bilirubin NEGATIVE NEGATIVE Urine Urobilinogen 0.2 NORMAL MG/DL Urine Leukocyte Esterase NEGATIVE NEGATIVE Urine RBC (Auto) NEGATIVE NEGATIVE Urine RBC NONE /HPF Urine WBC NONE /HPF Urine Squamous Epithelial Cells 0-2 /HPF Urine Crystals NONE /LPF Urine Bacteria NEGATIVE /HPF Urine Casts NONE /LPF Urine Mucus NONE /LPF Urine Culture Indicated NO My Orders Orders - ANGELES MATSON MD Cbc With Automated Diff (07/26/18 11:35) Comprehensive Metabolic Panel (07/26/18 11:35) Troponin T (07/26/18 11:35) Ekg Tracing (07/26/18 11:35) Chest Pa/Lat (2 View) (07/26/18 11:35) Probnp Fs (07/26/18 11:35) Ua Culture If Indicated (07/26/18 11:35) Lipase (07/26/18 11:35) Lidocaine 2% Viscous 15 Ml (Xylocaine Vi (07/26/18 11:45) Ns Iv 1000 Ml (Sodium Chloride 0.9%) (07/26/18 11:35) Antacid Suspension (Mylanta Suspension (07/26/18 11:45) Famotidine Injection (Pepcid Injection) (07/26/18 11:35) Ed Iv/Invasive Line Start (07/26/18 11:35) Ketorolac Injection (Toradol Injection) (07/26/18 11:45) Ct Abdomen/Pelvis W (07/26/18 11:41) Iohexol Injection (Omnipaque 350 Mg/Ml 1 (07/26/18 11:45) Received Contrast (Hold Metformin- Contr (07/26/18 11:45) Sodium Chloride Flush (Catheter Flush Sy (07/26/18 11:45) Ns (Ivpb) (Sodium Chloride 0.9% Ivpb Bag (07/26/18 11:45) Medications Given in ED Current Medications Medications Dose Ordered Sig/[place]mar Route Start Time Stop Time Status Last Admin Dose Admin Al Hydrox/Mg Hydrox/Simethicone 30 ml ONCE ONCE PO 07/26/18 11:45 07/26/18 11:46 DC 07/26/18 12:05 30 ML Iohexol 100 ml ONCE ONCE IV 07/26/18 11:45 07/26/18 11:46 DC 07/26/18 12:46 100 ML Ketorolac Tromethamine 30 mg ONCE ONCE IVP 07/26/18 11:45 07/26/18 11:46 DC 07/26/18 12:05 30 MG Lidocaine HCl 15 ml ONCE ONCE PO 07/26/18 11:45 07/26/18 11:46 DC 07/26/18 12:05 15 ML Sodium Chloride 10 ml NEEDED PRN IV 07/26/18 11:45 07/26/18 12:46 10 ML Sodium Chloride 100 ml ONCE ONCE IV 07/26/18 11:45 07/26/18 11:46 DC 07/26/18 12:46 100 ML Vital Signs/I&O 07/26/18 10:26 Temp 96.7 Pulse 76 Resp 18 B/P (MAP) 149/69 (95) Pulse Ox 98 Capillary Refill : Less Than 3 Seconds Blood Pressure Mean: 95 Progress Note : Time: 13:22 Progress Note Quite elderly female with a history of hypertension and hypothyroidism, with palpitations yesterday and associated chest pressure and shortness of breath and lightheadedness. Only lightheadedness persists today. She also reports right upper quadrant abdominal discomfort which is an intermittent chronic problem but worse and more frequent over the last few days. Will check labs and EKG and chest x-ray and we'll obtain a CT scan of the abdomen and pelvis. Will give IV fluids and medication for discomfort and will then reevaluate. Update 1315: Workup unremarkable and reassuring aside from very mildly elevated troponin T and mildly elevated BNP without findings of congestive failure on chest x-ray or shortness of breath by history. Patient with concerning episode of palpitations with associated chest pressure and lightheadedness, now with mildly elevated cardiac enzyme testing. Will require admission for observation on telemetry and trending of troponins and further care as indicated. The patient is graciously accepted for admission by Dr. Shaw. ECG Comment Sinus rhythm, rate 72, no acute ST elevation or depression, FL 147, QRS 78, QTC 461, EP interpretation. Diagnostic Imaging Comments CT A/P (radiology read): nonacute; diverticulosis. COMPARISONS: None. FINDINGS: Lungs/pleura: Chronic appearing increased lung markings in both lung bases. Lungs are otherwise clear. There is no pneumothorax. There is no pleural effusion. Mediastinum: Unremarkable. Pulmonary vasculature: Unremarkable. Heart: Unremarkable. Bones/extrathoracic soft tissue: There are hypertrophic spurs involving the thoracic spine. IMPRESSION: 1: There is no radiographic evidence of acute cardiopulmonary process. Departure Impression Primary Impression: Dizziness and giddiness Additional Impressions: Palpitations Elevated troponin level Elevated brain natriuretic peptide (BNP) level Disposition: ADMITTED INPATIENT Condition: Stable Admissions Decision to Admit Reason: Admit from ER (General) Departure-Patient Inst. Referrals: CHRISTIN CARDONA MD (PCP/Family) Primary Care Physician ANGELES MATSON MD Jul 26, 2018 13:21
--- NOTE | 2018-07-26 15:20 | NUR ---
DAVID STEWART admitted to room 416-1, with an admitting diagnosis of PALPITATIONS, on 07/26/18 from [facility] ED via EMS, accompanied by EMS. DAVID STEWART introduced to surroundings, call light, bed controls, phone, TV, temperature control, lights, meal times, smoking policy, visitor policy, side rail policy, bathrooms and showers. DAVID STEWART verbalizes understanding that [facility] is not responsible for the loss or damage to any personal effects or valuables that are kept in the patients posession during their hospitalization. The following Patient Care Plans were discussed with the PT: Discharge Planning, PAIN. DAVID STEWART verbalizes understanding of Interdisciplinary Patient Education. Patient WAS informed about the Rapid Response Team and its purpose.
[2018-07-26 15:25] VITALS: BP 158/90
[2018-07-26] MEDS ORDERED: CALCIUM CARBONATE 500 MG (TUMS) TAB.CHEW PO PRN (15:45)
[2018-07-26] MEDS ORDERED: fentaNYL INJECTION 100 MCG/2 ML AMP IVP PRN (15:45)
[2018-07-26] MEDS ORDERED: LOPERAMIDE 2 MG (IMODIUM) CAP PO PRN (15:45)
[2018-07-26] MEDS ORDERED: ONDANSETRON 4 MG/2 ML (SDV) Z0FRAN IVP PRN (15:45)
[2018-07-26] MEDS ORDERED: diphenhydrAMINE 25 MG TAB (BENADRYL) PO PRN (15:45)
[2018-07-26] MEDS ORDERED: MELATONIN 3 MG TABLET PO PRN (15:45)
[2018-07-26] MEDS ORDERED: [UNRECOGNIZED DRUG - OTHER] PO (16:23)
[2018-07-26] MEDS ORDERED: ASPI-983 PO ×2 (16:23)
[2018-07-26] MEDS ORDERED: EST30C VG (16:23)
[2018-07-26] MEDS ORDERED: PANT40TA3 PO (16:23)
[2018-07-26] MEDS ORDERED: MELA10CA2 PO (16:23)
[2018-07-26] MEDS ORDERED: PSEU30TA35 PO (16:23)
--- NOTE | 2018-07-26 16:27 | NUR ---
WENT OVER THE EXT MED HX WITH THE PATIENT AND SHE VERIFIED HOW SHE TAKES HER MEDICATIONS. SHE ALSO LISTED HER OTC MEDS TO ME. SHE STATES SHE IS NO LONGER TAKING THE LABETALOL. SHE TAKES THE FOLLOWING OTC: 2 PAPAYA BID SKELETAL STRENGTH VITAMIN BID BUNNY 180MG HS MELATONIN 10MG HS GARLIC Mon ASPIRIN 81MG Mon BENEFIBER 1 TSP BID
--- NOTE | 2018-07-26 17:17 | Consultation-Cardiology ---
HPI-Cardiology Cardiology Consultation Date of Consultation 07/26/18 Date of Admission Time Seen by Provider: 17:14 Indication: chest pain, palpitation HPI 88 years old lady with history of hypertension, hypothyroidism, has been having episodes of palpitations started yesterday evening felt burst of rapid heart rate lasting for few minutes and resolving. reporting episodes of right sided abdominal pain on and off. Occasional dizziness. No full syncope, had mild chest discomfort. Home Medications & Allergies Allergies: Coded Allergies: codeine (Unverified Allergy, Unknown, NAUSEA, 07/26/18) Home Medication List Reviewed: Yes MOS-Bqjcrw-Ccrjxa Hx Patient Social History Employed/Student: retired Alcohol Use: Denies Use Recreational Drug Use: No Smoking Status: Never a Smoker 2nd Hand Smoke Exposure: No Recent Foreign Travel: No Recent Infectious Disease Expo: No Recent Hopitalizations: No Physical Abuse Screen: No Sexual Abuse: No Past Medical History discussed below Family Medical History Family Medical Hx noncontributory to her current condition Review of Systems-General Review of Systems Constitutional: see HPI, dizziness, malaise, weakness EENTM: see HPI, no symptoms reported Respiratory: see HPI; No cough; dyspnea on exertion; No hemoptysis, No orthopnea, No phlegm, No short of breath, No stridor, No wheezing, No other Cardiovascular: see HPI, chest pain; No edema, No Hx of Intervention; palpitations; No syncope, No vascular heart diseas, No other Gastrointestinal: RUQ, RLQ Genitourinary: see HPI Musculoskeletal: see HPI Skin: see HPI All Other Systems Reviewed Negative Unless Noted: Yes Reviewed Test Results Reviewed Test Results Lab Laboratory Tests Test 07/26/18 11:51 07/26/18 12:28 Range/Units White Blood Count 4.8 4.3-11.0 10^3/uL Red Blood Count 4.08 L 4.35-5.85 10^6/uL Hemoglobin 12.8 11.5-16.0 G/DL Hematocrit 39 35-52 % Mean Corpuscular Volume 95 80-99 FL Mean Corpuscular Hemoglobin 31 25-34 PG Mean Corpuscular Hemoglobin Concent 33 32-36 G/DL Red Cell Distribution Width 14.7 H 10.0-14.5 % Platelet Count 208 130-400 10^3/uL Mean Platelet Volume 10.3 7.4-10.4 FL Neutrophils (%) (Auto) 63 42-75 % Lymphocytes (%) (Auto) 22 12-44 % Monocytes (%) (Auto) 13 H 0-12 % Eosinophils (%) (Auto) 2 0-10 % Basophils (%) (Auto) 0 0-10 % Neutrophils # (Auto) 3.0 1.8-7.8 X 10^3 Lymphocytes # (Auto) 1.1 1.0-4.0 X 10^3 Monocytes # (Auto) 0.6 0.0-1.0 X 10^3 Eosinophils # (Auto) 0.1 0.0-0.3 10^3/uL Basophils # (Auto) 0.0 0.0-0.1 10^3/uL Sodium Level 146 H 135-145 MMOL/L Potassium Level 4.5 3.6-5.0 MMOL/L Chloride Level 105 98-107 MMOL/L Carbon Dioxide Level 29 21-32 MMOL/L Anion Gap 12 5-14 MMOL/L Blood Urea Nitrogen 14 7-18 MG/DL Creatinine 0.96 0.60-1.30 MG/DL Estimat Glomerular Filtration Rate 55 BUN/Creatinine Ratio 15 Glucose Level 94 70-105 MG/DL Calcium Level 9.3 8.5-10.1 MG/DL Corrected Calcium 9.1 8.5-10.1 MG/DL Total Bilirubin 0.4 0.1-1.0 MG/DL Aspartate Amino Transf (AST/SGOT) 22 5-34 U/L Alanine Aminotransferase (ALT/SGPT) 16 0-55 U/L Alkaline Phosphatase 68 40-136 U/L Troponin T 11 H <=10 NG/L Pro-B-Type Natriuretic Peptide 127.9 H <75.0 PG/ML Total Protein 7.4 6.4-8.2 GM/DL Albumin 4.3 3.2-4.5 GM/DL Lipase 37 8-78 U/L Urine Color YELLOW Urine Clarity CLEAR Urine pH 7.0 5-9 Urine Specific [place] <=1.005 1.016-1.022 Urine Protein NEGATIVE NEGATIVE Urine Glucose (UA) NEGATIVE NEGATIVE Urine Ketones NEGATIVE NEGATIVE Urine Nitrite NEGATIVE NEGATIVE Urine Bilirubin NEGATIVE NEGATIVE Urine Urobilinogen 0.2 NORMAL MG/DL Urine Leukocyte Esterase NEGATIVE NEGATIVE Urine RBC (Auto) NEGATIVE NEGATIVE Urine RBC NONE /HPF Urine WBC NONE /HPF Urine Squamous Epithelial Cells 0-2 /HPF Urine Crystals NONE /LPF Urine Bacteria NEGATIVE /HPF Urine Casts NONE /LPF Urine Mucus NONE /LPF Urine Culture Indicated NO Physical Exam Physical Exam Vital Signs Vital Signs - First Documented 07/26/18 10:26 Temp 96.7 Pulse 76 Resp 18 B/P (MAP) 149/69 (95) Pulse Ox 98 Capillary Refill : Less Than 3 SecondsLess Than 3 Seconds Height, Weight, BMI Height: 5'2.00" Weight: 122lbs. 7.0oz. [id number]; 22.4 BMI Method:Stated General Appearance: No Apparent Distress Eyes: Bilateral Eye Normal Inspection, Bilateral Eye PERRL, Bilateral Eye EOMI HEENT: PERRL/EOMI, TMs Normal, Normal ENT Inspection, Pharynx Normal, Moist Mucous Membranes Neck: Full Range of Motion, Normal Inspection, Non Tender, Supple, Carotid Bruit Respiratory: Chest Non Tender, Normal Breath Sounds, No Accessory Muscle Use, No Respiratory Distress Cardiovascular: Regular Rate, Rhythm, No Edema, No Gallop, No JVD, No Murmur, Normal Peripheral Pulses Gastrointestinal: Normal Bowel Sounds, No Organomegaly, No Pulsatile Mass, Non Tender, Soft Back: Normal Inspection, No CVA Tenderness, No Vertebral Tenderness Extremity: Normal Capillary Refill, Normal Inspection, Normal Range of Motion, Non Tender, No Calf Tenderness, No Pedal Edema Neurologic/Psychiatric: Alert, Oriented x3, No Motor/Sensory Deficits, Normal Mood/Affect Skin: Normal Color, Warm/Dry Lymphatic: No Adenopathy A/P-Cardiology Admission Diagnosis Palpitation Chest pain Hypothyroidism Dizziness Assessment/Plan Palpitation, episode of feeling burst of rapid heartbeat. No significant arrhythmia was noted, place patient on telemetry, evaluate echocardiogram. Continue to monitor. Next Chest pain nonspecific etiology, patient had no acute EKG changes, troponin slightly elevated, continue to monitor serial troponin. Hypertension, borderline elevated, maintained on amlodipine 2.5 mg daily, restart medication, monitor blood pressure Dizziness and lightheadedness, reporting dizziness wit elevated or low blood pressure. Continue to monitor at this time Abdominal pain, right sided pain. Managed by primary care physician next Hypothyroidism, managed by primary care physician Clinical Quality Measures DVT/VTE Risk/Contraindication: Risk Factor Score Per Nursin RFS Level Per Nursing on Admit: 2=Moderate KARL RIVAS MD Jul 26, 2018 17:17
[2018-07-26 19:30] VITALS: BP 143/90
[2018-07-26] MEDS: POLYETHYLENE GLYCOL 17 GM (MIRALAX) PACK PO SCH (20:29)
[2018-07-27 00:30] VITALS: BP 140/75
[2018-07-27 04:43] VITALS: BP 129/80
[2018-07-27 05:49] LABS: BASOPHILS % (AUTO) 0 % (0-10); EOSINOPHILS # (AUTO) 0.1 10^3/uL (0.0-0.3); EOSINOPHILS % (AUTO) 1 % (0-10); HEMATOCRIT 39 % (35-52); HEMOGLOBIN 12.7 G/DL (11.5-16.0); LYMPHOCYTES # (AUTO) 1.3 X 10^3 (1.0-4.0); LYMPHOCYTES % (AUTO) 30 % (12-44); MEAN CORPUSCULAR HEMOGLOBIN 31 PG (25-34); MEAN CORPUSCULAR HGB CONC 33 G/DL (32-36); MEAN CORPUSCULAR VOLUME 94 FL (80-99); MONOCYTES # (AUTO) 0.6 X 10^3 (0.0-1.0); MONOCYTES % (AUTO) 14 % (0-12); NEUTROPHILS # (AUTO) 2.3 X 10^3 (1.8-7.8); NEUTROPHILS % (AUTO) 55 % (42-75); PLATELET COUNT 210 10^3/uL (130-400); RED CELL DISTRIBUTION WIDTH 14.7 % (10.0-14.5); WHITE BLOOD COUNT 4.3 10^3/uL (4.3-11.0)
[2018-07-27 06:02] LABS: ALANINE AMINOTRANSFERASE 21 U/L (0-55); ALKALINE PHOSPHATASE 61 U/L (40-136); BILIRUBIN,TOTAL 0.5 MG/DL (0.1-1.0); BUN/CREATININE RATIO 21; CALCIUM 9.1 MG/DL (8.5-10.1); CARBON DIOXIDE 24 MMOL/L (21-32); CHLORIDE 104 MMOL/L (98-107); CREATININE SERUM 0.94 MG/DL (0.60-1.30); GFR ESTIMATED 56; GLUCOSE 82 MG/DL (70-105); SODIUM 138 MMOL/L (135-145)
[2018-07-27] MEDS ORDERED: PANTOPRAZOLE 40 MG (PROTONIX) TAB PO SCH (07:00)
--- NOTE | 2018-07-27 07:30 | Cardiology Progress Note ---
Subjective Date Seen by Provider: Jul 27, 2018 Time Seen by Provider: 07:29 Subjective/Events-last exam patient is laying down in bed, still having recurrent episodes of palpitation. Telemetry showed frequent atrial premature contractions and short PAT's Review of Systems General: No Chills, No Night Sweats, No Fatigue, No Malaise, No Appetite, No Other HEENT: No Head Aches, No Visual Changes, No Eye Pain, No Ear Pain, No Dysphasia, No Sinus Congestion, No Post Nasal Drip, No Sore Throat, No Other Pulmonary: No Dyspnea, No Cough, No Pleuritic Chest Pain, No Other Cardiovascular: Palpitations; No: Chest Pain, Orthopnea, Paroxysmal Noc. Dyspnea, Edema, Lt Headedness, Other Objective-Cardiology Exam Last Set of Vital Signs Vital Signs 07/27/18 07/27/18 04:43 07:00 Temp 97.2 Pulse 77 Resp 20 B/P (MAP) 129/80 (96) Pulse Ox 95 O2 Delivery Room Air Capillary Refill : Less Than 3 SecondsLess Than 3 Seconds I&O Intake and Output 07/27/18 00:00 Intake Total 1440 ml Output Total 500 ml Balance 940 ml Intake Oral 440 ml IV Total 1000 ml Output Urine Total 500 ml # Voids 3 Daily Weight Change No No General: Alert, Oriented X3, Cooperative HEENT: Atraumatic, PERRLA Neck: Supple, No JVD, No Thyromegaly Lungs: Clear to Auscultation, Normal Air Movement Heart: Regular Rate, Normal S1, Normal S2, Other (S3 present) Abdomen: Normal Bowel Sounds, Soft, No Tenderness, No Hepatosplenomegaly, No Masses Extremities: No Clubbing, No Cyanosis, No Edema, Normal Pulses, No Tenderness/Swelling Skin: No Rashes, No Breakdown, No Significant Lesion Neuro: Normal Gait, Normal Speech, Strength at 5/5 X4 Ext, Normal Tone, Sensation Intact Psych/Mental Status: Mental Status NL, Mood NL Results Lab Laboratory Tests 07/26/18 11:51 07/27/18 05:01 A/P-Cardiology Admission Diagnosis Palpitation Chest pain Hypothyroidism Dizziness Assessment/Plan Palpitation, episode of feeling burst of rapid heartbeattelemetry showed frequent atrial premature contractions and short PAT's. I will start her on low-dose beta blockers and monitor tolerance and response Abdominal pain, right-sided abdominal pain associated with mild chest discomfort. Managed by primary care team Chest pain nonspecific etiology, patient had no acute EKG changes, cardiac enzy mes are negative Hypertension, borderline elevated, maintained on amlodipine 2.5 mg daily, restart medication, monitor blood pressure Dizziness and lightheadedness, reporting dizziness wit elevated or low blood pressure. Continue to monitor at this time Abdominal pain, right sided pain. Managed by primary care physician next Hypothyroidism, managed by primary care physician Clinical Quality Measures DVT/VTE Risk/Contraindication: Risk Factor Score Per Nursin RFS Level Per Nursing on Admit: 2=Moderate KARL RIVAS MD Jul 27, 2018 07:30
[2018-07-27 08:00] VITALS: BP 123/66
[2018-07-27] MEDS ORDERED: ASPIRIN E.C. 81 MG (ECOTRIN) TAB PO SCH (09:00)
[2018-07-27] MEDS ORDERED: amLODIPine 2.5MG (NORVASC) TAB PO SCH (09:00)
[2018-07-27] MEDS: POLYETHYLENE GLYCOL 17 GM (MIRALAX) PACK PO SCH (09:10)
--- NOTE | 2018-07-27 11:11 | Short Stay Summary-Hospitalist ---
History of Present Illness HPI/Chief Complaint Chief complaint: Chest pressure with palpitations History of present illness: This is an 88-year-old white female clinic patient of [facility] who presented to [facility] after admitted from [facility] due to chest pain with palpitations. She is placed on telemetry and all troponins remained negative. Cardiology evaluated the case told her to stop Norvasc and start metoprolol and I recommended her to discontinue Sudafed completely. She was deemed stable for discharge and will of close follow-up with her primary care provider. Source: patient Date Seen 07/27/18 Time Seen by a Provider: 10:00 Attending Physician Michelle Shaw DO PCP Self,Silas BERNAL Referring Physician Date of Admission Jul 26, 2018 at 13:56 Home Medications & Allergies Home Medications Reviewed patient Home Medication Reconciliation performed by pharmacy medication reconciliations transport technician and/or nursing. Patients Allergies have been reviewed. Allergies Allergies Coded Allergies codeine (Unverified Allergy, Unknown, NAUSEA, 07/26/18) Past Kvhobyn-Smmdqi-Yypabp Hx Past Med/Social Hx: Reviewed Nursing Past Med/Soc Hx, Reviewed and Corrections made Patient Social History Marrital Status: single Employed/Student: retired Alcohol Use: Denies Use Number of Drinks Today: AA Alcohol Beverage of Choice: Beer Recreational Drug Use: No Smoking Status: Never a Smoker 2nd Hand Smoke Exposure: No Physical Abuse Screen: No Sexual Abuse: No Recent Foreign Travel: No Contact w/other who traveled: No Recent Hopitalizations: No Recent Infectious Disease Expo: No Seasonal Allergies Seasonal Allergies: Yes Past Medical History Surgeries: Appendectomy, Gallbladder, Hysterectomy Cardiac: High Cholesterol, Hypertension, Irregular Heartbeat Reproductive: No Sexually Transmitted Disease: No HIV/AIDS: No Hysterectomy Gastrointestinal: Gastroesophageal Reflux, Diverticulosis, Irritable Bowel Musculoskeletal: Arthritis, Chronic Back Pain Endocrine: Hypothyroidsim Loss of Vision: Bilateral Hearing Impairment: Denies Cancer: Cervical What Type of Treatment Did You: Surgical Intervention History of Blood Disorders: No Adverse Reaction to Blood Kinney: No (HAS HAD BLOOD WITH NO REACTION) Family History Reviewed Nursing Family Hx Review of Systems Constitutional: see HPI Cardiovascular: chest pain, palpitations Physical Exam Physical Exam Vital Signs Vital Signs - First Documented 07/26/18 10:26 Temp 96.7 Pulse 76 Resp 18 B/P (MAP) 149/69 (95) Pulse Ox 98 Capillary Refill : Less Than 3 SecondsLess Than 3 Seconds Height, Weight, BMI Height: 5'2.00" Weight: 122lbs. 0.0oz. [id number]; 22.4 BMI Method:Stated General Appearance: No Apparent Distress Eyes: Bilateral Eye Normal Inspection, Bilateral Eye PERRL, Bilateral Eye EOMI HEENT: PERRL/EOMI, TMs Normal, Normal ENT Inspection, Pharynx Normal, Moist Mucous Membranes Neck: Full Range of Motion, Normal Inspection, Non Tender, Supple, Carotid Bruit Respiratory: Chest Non Tender, Normal Breath Sounds, No Accessory Muscle Use, No Respiratory Distress Cardiovascular: Regular Rate, Rhythm, No Edema, No Gallop, No JVD, No Murmur, Normal Peripheral Pulses Gastrointestinal: Normal Bowel Sounds, No Organomegaly, No Pulsatile Mass, Non Tender, Soft Back: Normal Inspection, No CVA Tenderness, No Vertebral Tenderness Extremity: Normal Capillary Refill, Normal Inspection, Normal Range of Motion, Non Tender, No Calf Tenderness, No Pedal Edema Neurologic/Psychiatric: Alert, Oriented x3, No Motor/Sensory Deficits, Normal Mood/Affect Skin: Normal Color, Warm/Dry Lymphatic: No Adenopathy Results Results/Procedures Labs Laboratory Tests 07/27/18 05:01 Patient resulted labs reviewed. Short Stay Diagnosis Discharge Diagnosis-Short Stay Admission Diagnosis Chest pain Palpitations Use of Sudafed Final Discharge Diagnosis Chest pain Palpitations Use of Sudafed Conclusion Plan Discharge home Stop Norvasc Start metoprolol Stop Sudafed Diagnosis/Problems Diagnosis/Problems (1) Chest pain Status: Acute Qualifiers: Qualified Codes: R07.9 - Chest pain, unspecified (2) Adverse effect of decongestant Status: Acute (3) Palpitations Status: Acute Clinical Quality Measures DVT/VTE Risk/Contraindication: Risk Factor Score Per Nursin RFS Level Per Nursing on Admit: 2=Moderate MICHELLE SHAW DO Jul 27, 2018 11:11
[2018-07-27] MEDS ORDERED: METO-387 PO (11:12)
[2018-07-27 12:00] VITALS: BP 153/81
[2018-07-27 13:00] VITALS: BP 153/81
--- NOTE | 2018-07-27 13:00 | NUR ---
DAVID STEWART demonstrates understanding of discharge instructions and accurately returns instructions upon questioning. Copy of Post-Discharge Instructions given to PT. DAVID STEWART is able to manage continuing needs after discharge. Patients belongings returned to PT. Patient discharged from 416-1 on 07/27/18 at 1300. DAVID STEWART left floor via W/C, accompanied by STAFF AND FAMILY PER AUTO.
[2018-07-27 15:37] VITALS: BP 153/81
== END 2018-07-27 13:00 | disposition home or self-care (01) ==
LOC: EDUNIT# 09:50 → ER FS 09:53 → 4TH 13:56
PROVIDERS: ADMIT Internal Medicine; ATTEND Internal Medicine
DX: R07.9 Chest pain, unspecified (principal); R00.2 Palpitations; T48.5X5A Adverse effect of other anti-common-cold drugs, initial encounter; E03.9 Hypothyroidism, unspecified; R42 Dizziness and giddiness; I10 Essential (primary) hypertension; R10.9 Unspecified abdominal pain; Z88.5 Allergy status to narcotic agent; Z88.6 Allergy status to analgesic agent; Z79.899 Other long term (current) drug therapy; E78.00 Pure hypercholesterolemia, unspecified; K21.9 Gastro-esophageal reflux disease without esophagitis; K57.30 Diverticulosis of large intestine without perforation or abscess without bleeding; K58.9 Irritable bowel syndrome, unspecified; M19.91 Primary osteoarthritis, unspecified site; Z80.49 Family history of malignant neoplasm of other genital organs
CPT/HCPCS: 36415; 71046; 74177; 80053; 81000; 83690; 83880; 84484; 85025; 93005; 96361; 96374; 96375; G0378

== ENCOUNTER → 2018-07-31 | Outpatient (CLI) | payer MEDICARE ==
[~2018-07-31] MED LIST changes: +ASPI-983 PO; +MELA10CA2 PO; +METO-387 PO; +PSEU30TA35 PO; +[UNRECOGNIZED DRUG - OTHER] PO
--- NOTE | 2018-07-31 10:22 | Diagnostic Imaging Report ---
PROCEDURE: CT sinuses without contrast TECHNIQUE: Multiple contiguous axial images were obtained through the sinuses without the use of intravenous contrast. Coronal and sagittal reformations were then performed. Auto Exposure Controls were utilized during the CT exam to meet ALARA standards for radiation dose reduction. INDICATION: Sinus congestion. Headache. COMPARISON: None. FINDINGS: The paranasal sinuses are clear. No mucosal thickening or air-fluid levels. The ostiomeatal units and frontal recesses are patent. Marked rightward bowing of the nasal septum with spur. 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 The middle ears and mastoids are clear. Normal alignment of the temporomandibular joints. There are moderate degenerative changes. Skull base is intact. IMPRESSION: 1. No CT evidence of acute or chronic paranasal sinus disease. 2. Marked rightward bowing of the nasal septum. Dictated by: Dictated on workstation # [id number]
== END ==
LOC: RAD FS 09:24
PROVIDERS: ATTEND Family Medicine
DX: J34.2 Deviated nasal septum (principal); R09.81 Nasal congestion
CPT/HCPCS: 70486

== ENCOUNTER → 2018-08-30 | Outpatient (CLI) | payer MEDICARE ==
--- NOTE | 2018-08-30 18:41 | Diagnostic Imaging Report ---
PROCEDURE: US Thyroid. TECHNIQUE: Multiple real-time grayscale images were obtained of the thyroid in various projections. INDICATION: Goiter. FINDINGS: No comparison available. The left thyroid lobe is small measuring 1.8 x 0.5 x 0.5 cm. No nodules are seen. The right thyroid lobe is also small measuring 3.1 x 0.7 x 0.6 cm. No nodules are seen. IMPRESSION: 1. Small thyroid without nodules. Dictated by: Dictated on workstation # [id number]
== END ==
LOC: RAD 15:19
PROVIDERS: ATTEND Otolaryngology Otolaryngology/Facial Plastic Surgery
DX: E04.2 Nontoxic multinodular goiter (principal)
CPT/HCPCS: 36415; 76536; 85652

== ENCOUNTER → 2018-10-10 | Outpatient (CLI) | payer MEDICARE | LOC: LAB 10:21 | PROVIDERS: ATTEND Nurse Practitioner | DX: R51 Headache (principal); R70.0 Elevated erythrocyte sedimentation rate | CPT/HCPCS: 36415; 85652 ==

== ENCOUNTER → 2018-10-10 | Outpatient (CLI) | payer MEDICARE ==
[~2018-10-10] VITALS: Ht 157.5 cm; Wt 56.7 kg
[~2018-10-10] MED LIST changes: +CATHETER FLUSH 10 ML SYR IV PRN; +REGADENOSON 0.4 MG/5 ML SYR (LEXISCAN) IV ONE
[2018-10-10 13:28] VITALS: BP 150/88
[2018-10-10 13:30] VITALS: BP 160/91
[2018-10-10 13:32] VITALS: BP 140/84
--- NOTE | 2018-10-10 16:13 | STRESS TEST ---
DATE OF SERVICE: 10/10/2018 LEXISCAN MYOVIEW STRESS TEST REPORT REFERRING PHYSICIAN: Baseline heart rate is 69, baseline blood pressure 135/83. Baseline EKG is sinus rhythm with no ischemic changes. In summary, the patient was scheduled initially for exercise stress test, was unable to perform and treadmill test was terminated and converted to Lexiscan Myoview stress test. The patient received 0.4 mg of Lexiscan. After receiving 10.6 mCi of technetium-99 Myoview, the resting images were acquired. After the stress test, the patient received 32.2 mCi of technetium-99 Myoview and the stress images were acquired. The resting and stress images were reviewed and compared in the short axis, horizontal long axis, and vertical long axis views. Review of the images showed small left ventricle with good radiotracer uptake. There is no significant ischemia or infarction. Her stress score was falsely elevated of 10 and SDS of 9. There is no significant ischemia that was noted, TID value 1.13. On the gated images, the left ventricle is small in size with normal contractility. Calculated ejection fraction 78%. CONCLUSION: 1. The patient was unable to exercise, tolerated Lexiscan well. 2. No significant ischemia or infarction on SPECT images, falsely elevated stress score and SDS. 3. Small left ventricular size with normal contractility. Calculated ejection fraction 78%. Job ID: [id number] DocumentID: [id number] Dictated Date: 10/10/2018 15:43:09 Department Administrator Date: 10/10/2018 16:12:12 Dictated By: KARL RIVAS MD
== END ==
LOC: CARD 10:18
PROVIDERS: ATTEND Internal Medicine Cardiovascular Disease
DX: I08.0 Rheumatic disorders of both mitral and aortic valves (principal); I25.10 Atherosclerotic heart disease of native coronary artery without angina pectoris; I10 Essential (primary) hypertension
CPT/HCPCS: 78452; 93017; 93306

== ENCOUNTER → 2019-03-07 | Outpatient (CLI) | payer MEDICARE ==
[~2019-03-07] MED LIST changes: -CATHETER FLUSH 10 ML SYR IV PRN; -METO-387 PO; +MTP25TSR PO; -REGADENOSON 0.4 MG/5 ML SYR (LEXISCAN) IV ONE
[2019-03-07 10:57] LABS: BACTERIA,URINE MODERATE /HPF; BILIRUBIN,URINE NEGATIVE (NEGATIVE); CLARITY,URINE CLEAR; COLOR,URINE PALE YELLOW; GLUCOSE, URINE (UA) NEGATIVE (NEGATIVE); KETONES,URINE NEGATIVE (NEGATIVE); LEUKOCYTE ESTERASE ,URINE 1+ (NEGATIVE); NITRITE,URINE NEGATIVE (NEGATIVE); PROTEIN,URINE NEGATIVE (NEGATIVE); SQUAMOUS EPITHELIAL CELL,UR 0-2 /HPF
== END ==
LOC: LAB FS 09:27
PROVIDERS: ATTEND Urology
DX: R82.5 Elevated urine levels of drugs, medicaments and biological substances (principal)
CPT/HCPCS: 81000; 87088

== ENCOUNTER → 2019-10-16 | Outpatient (CLI) | payer MEDICARE ==
[2019-10-16 09:14] LABS: ALBUMIN 4.1 GM/DL (3.2-4.5); BILIRUBIN,TOTAL 0.4 MG/DL (0.1-1.0); CALCIUM 9.4 MG/DL (8.5-10.1); CREATININE SERUM 1.08 MG/DL (0.60-1.30); POTASSIUM 4.1 MMOL/L (3.6-5.0)
== END ==
LOC: LAB FS 08:16
PROVIDERS: ATTEND Internal Medicine Cardiovascular Disease
DX: R07.89 Other chest pain (principal); I10 Essential (primary) hypertension; K58.9 Irritable bowel syndrome, unspecified; R00.2 Palpitations
CPT/HCPCS: 36415; 80053; 80061

== ENCOUNTER → 2020-04-29 | Outpatient (CLI) | payer MEDICARE ==
[~2020-04-29] MED LIST changes: +ASPI-1238 PO; -ASPI-983 PO; -PANT40TA3 PO; +PANT40TA52 PO; +PS30T PO; -PSEU30TA35 PO
[2020-04-29 15:09] LABS: BILIRUBIN,TOTAL 0.3 MG/DL (0.1-1.0); CREATININE SERUM 0.96 MG/DL (0.60-1.30); POTASSIUM 3.6 MMOL/L (3.6-5.0); TOTAL PROTEIN 7.4 GM/DL (6.4-8.2)
== END ==
LOC: CARD 15:00
PROVIDERS: ATTEND Internal Medicine Cardiovascular Disease
DX: I11.9 Hypertensive heart disease without heart failure (principal); I08.0 Rheumatic disorders of both mitral and aortic valves; E78.2 Mixed hyperlipidemia
CPT/HCPCS: 36415; 80053; 80061; 93306

== ENCOUNTER → 2020-05-25 | Outpatient (CLI) | payer MEDICARE ==
[~2020-05-25] VITALS: Ht 157 cm; Wt 52.0 kg
[~2020-05-25] MED LIST changes: +CATHETER FLUSH 10 ML SYR IV PRN; +REGADENOSON 0.4 MG/5 ML SYR (LEXISCAN) IV ONE
[2020-05-25 09:29] VITALS: BP 151/83
--- NOTE | 2020-05-25 20:02 | Cardiology Stress Test Report ---
Stress Test Report Date of Procedure/Referring: Date of Procedure: May 25, 2020 PCP Karl Schneider MD Admitting Physician Silas Fleming MD Indications: CP Baseline Heart Rate: 75 Baseline Blood Pressure: Blood Pressure Systolic: 151 Blood Pressure Diastolic: 83 Baseline Vitals Vital Signs Date Time Temp Pulse Resp B/P (MAP) Pulse Ox O2 Delivery O2 Flow Rate FiO2 05/25/20 09:29 89 17 151/83 (105) 97 Room Air Baseline EKG: Baseline EKG: NSR Summary After explaining the procedure to the patient, she signed a consent and then brought to the stress nuclear laboratory. Patient received 0.4 mg Lexiscan for stress test, ECG, heart rate and blood pressure were monitored continuously. Resting and stress dose of radio tracer were injected, imaging was acquired and reviewed in short axis, horizontal long axis and vertical long axis views. TID: 0.99 SSS: 9 SDS: 6 EF: 76 1. Patient tolerated Lexiscan well 2. Decreased uptake involving the mid to apical inferior wall and inferolateral wall with mild reversibility 3. Normal left ventricular size, EF 76% KARL SCHNEIDER MD May 25, 2020 20:02
== END ==
LOC: CARD 07:45
PROVIDERS: ATTEND Internal Medicine Cardiovascular Disease
DX: R07.9 Chest pain, unspecified (principal); I10 Essential (primary) hypertension
CPT/HCPCS: 78452; 93017; A9502

== ENCOUNTER 2020-07-31 14:41 | Emergency (ER) | payer MEDICARE ==
[~2020-07-31 14:41] MED LIST changes: -CATHETER FLUSH 10 ML SYR IV PRN; -REGADENOSON 0.4 MG/5 ML SYR (LEXISCAN) IV ONE
--- NOTE | 2020-07-31 14:56 | ED General ---
General Stated Complaint: FEVER; NAUSEA; GEN ACHING History of Present Illness Date Seen by Provider: Jul 31, 2020 Time Seen by Provider: 14:56 Initial Comments 89-year-old female presents with dysuria, subjective fever, some mild nausea, suprapubic pain and some generalized body aches. Patient reports symptoms been going on for couple days. Patient states she has been having issues for about 3 years with recurrent UTIs. She is scheduled to see the urologist at [place] in approximately 2 weeks. Patient reports that her last urinary tract infection was around 2 weeks to a month ago. She reports she is given a urine sample at the clinic but has not heard results back and the symptoms of worsen so she wanted to be reevaluated Allergies and Home Medications Allergies Coded Allergies: codeine (Unverified Allergy, Unknown, NAUSEA, 07/26/18) nut - unspecified (Verified Allergy, Unknown, anaphylaxis , 07/31/20) hydrocodone (Verified Adverse Reaction, Unknown, nausea/vomiting , 07/31/20) nitrofurantoin (Verified Adverse Reaction, Unknown, nausea/vomiting , 07/31/20) Home Medications Aspirin 81 Mg Tablet.dr, 81 MG PO MoWeFr, (Reported) Estrogens Conjugated 30 Gm Cr, VG WEEK, (Reported) Fexofenadine HCl 180 Mg Tablet, 180 MG PO HS, (Reported) Garlic 1,000 Mg Capsule, 1,000 MG PO MoWeFr, (Reported) Levothyroxine Sodium 88 Mcg Tablet, 88 MCG PO DAILY, (Reported) Melatonin 10 Mg Capsule, 10 MG PO HS, (Reported) Metoprolol Succinate 25 Mg Tab.er.24h, 25 MG PO DAILY Prescribed by: ANGEL BOURGEOIS on 07/27/18 1112 Pantoprazole Sodium 40 Mg Tablet.dr, 40 MG PO DAILY, (Reported) Papaya 1 Each Tablet, 2 TAB PO BID, (Reported) Temazepam 15 Mg Capsule, 15 MG PO HS, (Reported) Wheat Dextrin 144 Gm Powder, 1 TSP PO BID, (Reported) [Skelatal Support Vit] , 1 TAB PO BID, (Reported) Patient Home Medication List Home Medication List Reviewed: Yes Review of Systems Review of Systems Constitutional: see HPI; No chills; fever Cardiovascular: no symptoms reported Gastrointestinal: see HPI Genitourinary: see HPI Musculoskeletal: see HPI Skin: no symptoms reported Psychiatric/Neurological: No Symptoms Reported Hematologic/Lymphatic: No Symptoms Reported Past Ctgpcjd-Gdddcv-Typxll Hx Past Med/Social Hx: Reviewed Nursing Past Med/Soc Hx Patient Social History Alcohol Beverage of Choice: Beer 2nd Hand Smoke Exposure: No Recent Hopitalizations: No Seasonal Allergies Seasonal Allergies: Yes Past Medical History Surgeries: Yes (D&C, OVARIAN CYSTECTOMY, VAGINAL MESH PLACED X2 ) Appendectomy, Gallbladder, Hysterectomy Respiratory: No Cardiac: Yes High Cholesterol, Hypertension, Irregular Heartbeat Neurological: No Reproductive Disorders: No 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 Sexually Transmitted Disease: No HIV/AIDS: No Genitourinary: Yes Gastrointestinal: Yes Gastroesophageal Reflux, Diverticulosis, Irritable Bowel Musculoskeletal: Yes Arthritis, Chronic Back Pain Endocrine: Yes Hypothyroidsim HEENT: Yes (cataracts removed, ) Loss of Vision: Bilateral Hearing Impairment: Denies Cancer: Yes Cervical What Type of Treatment Did You: Surgical Intervention Psychosocial: No Integumentary: No Blood Disorders: No Adverse Reaction/Blood Tranf: No (HAS HAD BLOOD WITH NO REACTION) Physical Exam Vital Signs Vital Signs - First Documented 07/31/20 14:50 Temp 37.3 Pulse 86 Resp 16 B/P (MAP) 143/72 (95) Pulse Ox 94 Capillary Refill : Height, Weight, BMI Height: 5'2.00" Weight: 122lbs. 7.0oz. [id number]; 21.09 BMI Method:Stated General Appearance: No Apparent Distress, WD/WN Neck: Non Tender Respiratory: Lungs Clear Cardiovascular: Regular Rate, Rhythm Gastrointestinal: Soft, Tenderness (Suprapubic) Back: CVA Tenderness (R) (Mild) Extremity: Normal Capillary Refill, Normal Range of Motion, Non Tender Neurologic/Psychiatric: Alert, Normal Mood/Affect, valet attendant II-XII Norm as Tested Skin: Normal Color, Warm/Dry Progress/Results/Core Measures Suspected Sepsis SIRS Temperature: Pulse: Respiratory Rate: Laboratory Tests 07/31/20 15:07: White Blood Count 8.0 Blood Pressure / Mean: Laboratory Tests 07/31/20 15:07: Platelet Count 240 Results/Orders Lab Results Laboratory Tests Test 07/31/20 15:07 07/31/20 15:08 Range/Units White Blood Count 8.0 4.3-11.0 10^3/uL Red Blood Count 4.12 L 4.35-5.85 10^6/uL Hemoglobin 13.2 11.5-16.0 G/DL Hematocrit 39 35-52 % Mean Corpuscular Volume 94 80-99 FL Mean Corpuscular Hemoglobin 32 25-34 PG Mean Corpuscular Hemoglobin Concent 34 32-36 G/DL Red Cell Distribution Width 13.2 10.0-14.5 % Platelet Count 240 130-400 10^3/uL Mean Platelet Volume 10.3 7.4-10.4 FL Immature Granulocyte % (Auto) 0 % Neutrophils (%) (Auto) 73 42-75 % Lymphocytes (%) (Auto) 17 12-44 % Monocytes (%) (Auto) 10 0-12 % Eosinophils (%) (Auto) 0 0-10 % Basophils (%) (Auto) 0 0-10 % Neutrophils # (Auto) 5.8 1.8-7.8 X 10^3 Lymphocytes # (Auto) 1.4 1.0-4.0 X 10^3 Monocytes # (Auto) 0.8 0.0-1.0 X 10^3 Eosinophils # (Auto) 0.0 0.0-0.3 10^3/uL Basophils # (Auto) 0.0 0.0-0.1 10^3/uL Immature Granulocyte # (Auto) 0.0 0.0-0.1 10^3/uL Urine Color YELLOW Urine Clarity CLEAR Urine pH 7.0 5-9 Urine Specific [place] <=1.005 1.016-1.022 Urine Protein NEGATIVE NEGATIVE Urine Glucose (UA) NEGATIVE NEGATIVE Urine Ketones NEGATIVE NEGATIVE Urine Nitrite NEGATIVE NEGATIVE Urine Bilirubin NEGATIVE NEGATIVE Urine Urobilinogen 0.2 < = 1.0 MG/DL Urine Leukocyte Esterase 3+ H NEGATIVE Urine RBC (Auto) TRACE H NEGATIVE Urine RBC RARE /HPF Urine WBC 10-25 H /HPF Urine Squamous Epithelial Cells RARE /HPF Urine Crystals NONE /LPF Urine Bacteria NEGATIVE /HPF Urine Casts NONE /LPF Urine Mucus NEGATIVE /LPF Urine Culture Indicated YES My Orders Orders - HANNAH MCNAIR DO Basic Metabolic Panel (07/31/20 14:57) Cbc With Automated Diff (07/31/20 14:57) Ua Culture If Indicated (07/31/20 14:57) Urine Culture (07/31/20 15:08) Vital Signs/I&O 07/31/20 14:50 Temp 37.3 Pulse 86 Resp 16 B/P (MAP) 143/72 (95) Pulse Ox 94 Capillary Refill : Departure Impression Primary Impression: Urinary tract infection Qualified Codes: N30.01 - Acute cystitis with hematuria Disposition: HOME, SELF-CARE Condition: Stable Departure-Patient Inst. Referrals: CHRISTIN CARDONA MD (PCP/Family) Primary Care Physician Patient Instructions: Urinary Tract Infection, Adult (DC) Add. Discharge Instructions: Follow-up with your primary care provider in the middle of next week to recheck symptoms Keep your appointment with Dr. Damian Rutledge Cephalexin (Cephalexin) 500 Mg Tablet 500 MG PO QID, #20 TAB 0 Refills Prov: HANNAH MCNAIR DO 07/31/20 HANNAH MCNAIR DO Jul 31, 2020 14:56
[2020-07-31 15:16] LABS: BASOPHILS % (AUTO) 0 % (0-10); EOSINOPHILS % (AUTO) 0 % (0-10); HEMATOCRIT 39 % (35-52); HEMOGLOBIN 13.2 G/DL (11.5-16.0); LYMPHOCYTES # (AUTO) 1.4 X 10^3 (1.0-4.0); LYMPHOCYTES % (AUTO) 17 % (12-44); MEAN CORPUSCULAR HEMOGLOBIN 32 PG (25-34); MEAN CORPUSCULAR HGB CONC 34 G/DL (32-36); MEAN CORPUSCULAR VOLUME 94 FL (80-99); MEAN PLATELET VOLUME 10.3 FL (7.4-10.4); MONOCYTES # (AUTO) 0.8 X 10^3 (0.0-1.0); MONOCYTES % (AUTO) 10 % (0-12); NEUTROPHILS # (AUTO) 5.8 X 10^3 (1.8-7.8); NEUTROPHILS % (AUTO) 73 % (42-75); PLATELET COUNT 240 10^3/uL (130-400)
[2020-07-31 15:26] LABS: BILIRUBIN,URINE NEGATIVE (NEGATIVE); CLARITY,URINE CLEAR; COLOR,URINE YELLOW; GLUCOSE, URINE (UA) NEGATIVE (NEGATIVE); KETONES,URINE NEGATIVE (NEGATIVE); NITRITE,URINE NEGATIVE (NEGATIVE); PROTEIN,URINE NEGATIVE (NEGATIVE)
[2020-07-31 15:27] LABS: BACTERIA,URINE NEGATIVE /HPF; LEUKOCYTE ESTERASE ,URINE 3+ (NEGATIVE); RBC,URINE RARE /HPF; SQUAMOUS EPITHELIAL CELL,UR RARE /HPF
[2020-07-31 15:30] LABS: POTASSIUM 4.1 MMOL/L (3.6-5.0)
[2020-07-31 15:34] LABS: CALCIUM 9.2 MG/DL (8.5-10.1); CREATININE SERUM 0.92 MG/DL (0.60-1.30)
[2020-07-31] MEDS ORDERED: CEPH500T PO (15:35)
[2020-07-31] MEDS ORDERED: cefTRIAXone 1,000 MG in WATER (STERILE) FOR INJECTION 10 ML IV ONE (15:45)
[2020-07-31 16:07] VITALS: BP 128/62
== END 2020-07-31 16:07 | disposition home or self-care (01) ==
LOC: EDUNIT# 14:41 → ER FS 14:42
DX: N39.0 Urinary tract infection, site not specified (principal); I10 Essential (primary) hypertension; K21.9 Gastro-esophageal reflux disease without esophagitis; E03.9 Hypothyroidism, unspecified; Z79.890 Hormone replacement therapy; Z79.82 Long term (current) use of aspirin; Z79.899 Other long term (current) drug therapy
CPT/HCPCS: 36415; 80048; 81000; 85025; 87077; 87088; 87186

== ENCOUNTER 2020-08-19 08:48 | Outpatient (RCR) | payer MEDICARE ==
[2020-08-07 10:25] VITALS: BP 132/80
[2020-08-09 09:20] VITALS: BP 153/87
[2020-08-09] MEDS: NS IV SCH (09:27)
[2020-08-09] MEDS: TOBRAMYCIN IV SCH (09:27)
[2020-08-11] MEDS: NS IV SCH (09:14)
[2020-08-11] MEDS: TOBRAMYCIN IV SCH (09:14)
[2020-08-11 09:17] VITALS: BP 135/84
[2020-08-13 09:40] VITALS: BP 129/63
[2020-08-13] MEDS: NS IV SCH (10:22)
[2020-08-13] MEDS: TOBRAMYCIN IV SCH (10:22)
[2020-08-15] MEDS: NS IV SCH (10:30)
[2020-08-15] MEDS: TOBRAMYCIN IV SCH (10:30)
[2020-08-15 10:39] VITALS: BP 143/73
[2020-08-17] MEDS: TOBRAMYCIN IV SCH (10:00)
[2020-08-17] MEDS: NS IV SCH (10:00)
[2020-08-17 10:55] VITALS: BP 144/78
[~2020-08-19] VITALS: Ht 157.5 cm; Wt 52.3 kg
[~2020-08-19 08:48] MED LIST changes: +CEPH500T PO; +NS IV SCH; +TOBRAMYCIN IV SCH; +TROUGH ORDER-PHARMACY XX NR
[2020-08-19] MEDS: NS IV SCH (09:02)
[2020-08-19] MEDS: TOBRAMYCIN IV SCH (09:02)
[2020-08-19 09:04] VITALS: BP 148/75
== END 2020-08-19 10:05 | disposition home or self-care (01) ==
LOC: SDC 08:48
PROVIDERS: ATTEND Family Medicine
DX: B96.5 Pseudomonas (aeruginosa) (mallei) (pseudomallei) as the cause of diseases classified elsewhere (principal)
CPT/HCPCS: 36415; 80200; 96365

== ENCOUNTER 2020-09-20 10:14 | Emergency (ER) | payer MEDICARE ==
[~2020-09-20] VITALS: Ht 157.4 cm; Wt 52.4 kg
[~2020-09-20 10:14] MED LIST changes: -NS IV SCH; -TOBRAMYCIN IV SCH; -TROUGH ORDER-PHARMACY XX NR
--- NOTE | 2020-09-20 10:45 | ED GI ---
General Stated Complaint: ABD PAIN Source of Information: Patient History of Present Illness Date Seen by Provider: Sep 20, 2020 Time Seen by Provider: 10:16 Initial Comments 89-year-old female presenting with complaints of left-sided abdominal pain. She states this started yesterday and she was having some nausea and loose stools with it. She denies seeing any blood in her urine or stool. She has not had a fever but did have chills. She has a history of having diverticulitis but states this does not feel the same. She also has had frequent urinary tract infections but again states that this does not feel the same. She has a chronic cough that causes her to cough to the point of vomiting. Since she was feeling worse and having more pain today she had her friend bring her to the emergency department to be evaluated. Timing/Duration: 1-2 Days Severity/Quality: Moderate, Sharp Location: LUQ, LLQ, Epigastric Radiation: LUQ, LLQ, Epigastric Activities at Onset: None Modifying Factors: Worsens With Defecating, Worsens With Exercise, Worsens With Movement, Worsens With Palpation, Worsens With Vomiting Associated Symptoms: No Back Pain, No Chest Pain, No Diaphoresis; Fever/Chills, Fatigue; No Heartburn; Nausea/Vomiting (Primarily posttussive emesis); No Rash, No Shortness of Air, No Swelling/Mass in Abdomen, No Syncope, No Weakness Allergies and Home Medications Allergies Coded Allergies: codeine (Unverified Allergy, Unknown, NAUSEA, 07/26/18) nut - unspecified (Verified Allergy, Unknown, anaphylaxis , 07/31/20) hydrocodone (Verified Adverse Reaction, Unknown, nausea/vomiting , 07/31/20) nitrofurantoin (Verified Adverse Reaction, Unknown, nausea/vomiting , 07/31/20) Home Medications Aspirin 81 Mg Tablet.dr, 81 MG PO MoWeFr, (Reported) Cephalexin 500 Mg Tablet, 500 MG PO QID Prescribed by: HANNAH MCNAIR on 07/31/20 1535 Ciprofloxacin HCl 250 Mg Tablet, 250 MG PO BID Prescribed by: NORIS WANG on 09/20/20 1351 Estrogens Conjugated 30 Gm Cr, VG WEEK, (Reported) Fexofenadine HCl 180 Mg Tablet, 180 MG PO HS, (Reported) Garlic 1,000 Mg Capsule, 1,000 MG PO MoWeFr, (Reported) Levothyroxine Sodium 88 Mcg Tablet, 88 MCG PO DAILY, (Reported) Melatonin 10 Mg Capsule, 10 MG PO HS, (Reported) Metoclopramide HCl 10 Mg Tablet, 10 MG PO Q6H PRN for NAUSEA/VOMITING Prescribed by: NORIS WANG on 09/20/20 1351 Metoprolol Succinate 25 Mg Tab.er.24h, 25 MG PO DAILY Prescribed by: ANGEL BOURGEOIS on 07/27/18 1112 Metronidazole 500 Mg Tablet, 500 MG PO TID Prescribed by: NORIS WANG on 09/20/20 1351 Pantoprazole Sodium 40 Mg Tablet.dr, 40 MG PO DAILY, (Reported) Papaya 1 Each Tablet, 2 TAB PO BID, (Reported) Temazepam 15 Mg Capsule, 15 MG PO HS, (Reported) Wheat Dextrin 144 Gm Powder, 1 TSP PO BID, (Reported) [Skelatal Support Vit] , 1 TAB PO BID, (Reported) Patient Home Medication List Home Medication List Reviewed: Yes Review of Systems Review of Systems Constitutional: chills, fever (Subjective) EENTM: No Symptoms Reported Respiratory: No Symptoms Reported Cardiovascular: No Symptoms Reported Gastrointestinal: See HPI Genitourinary: Denies Burning, Denies Frequency Musculoskeletal: no symptoms reported Skin: No rash Psychiatric/Neurological: Denies Headache, Denies Numbness Past Pplhrtb-Lzadog-Efyowk Hx Seasonal Allergies Seasonal Allergies: Yes Past Medical History Surgeries: Yes (D&C, OVARIAN CYSTECTOMY, VAGINAL MESH PLACED X2 ) Appendectomy, Gallbladder, Hysterectomy Respiratory: Yes (chronic cough ) Cardiac: Yes Atrial Fibrillation, High Cholesterol, Hypertension, Irregular Heartbeat Neurological: No Reproductive Disorders: No 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 Sexually Transmitted Disease: No HIV/AIDS: No Genitourinary: Yes UTI-Chronic Gastrointestinal: Yes Gastroesophageal Reflux, Diverticulosis, Irritable Bowel Musculoskeletal: Yes Arthritis, Chronic Back Pain Endocrine: Yes Hypothyroidsim HEENT: Yes (cataracts removed, ) Loss of Vision: Bilateral Hearing Impairment: Denies Cancer: Yes Cervical What Type of Treatment Did You: Surgical Intervention Psychosocial: No Integumentary: No Blood Disorders: No Adverse Reaction/Blood Tranf: No (HAS HAD BLOOD WITH NO REACTION) Physical Exam Vital Signs Vital Signs - First Documented 09/20/20 10:28 Temp 36.3 Pulse 100 Resp 16 B/P (MAP) 123/70 (87) Pulse Ox 97 O2 Delivery Room Air Capillary Refill : Height/Weight/BMI Height: 5'2.00" Weight: 122lbs. 7.0oz. [id number]; 21.09 BMI Method:Stated General Appearance: WD/WN, mild distress HEENT: pharynx normal Neck: non-tender Respiratory: chest non-tender, lungs clear, normal breath sounds, no respira tory distress, no accessory muscle use Cardiovascular: normal peripheral pulses, regular rate, rhythm Gastrointestinal: normal bowel sounds, soft, no pulsatile mass, guarding; No rebound; tenderness (Left-sided and epigastric) Rectal: deferred Extremities: normal range of motion, non-tender, normal capillary refill Neurologic/Psychiatric: alert, oriented x 3 Skin: normal color, warm/dry Images 1 - Left-sided and epigastric pain worsened with palpation Focused Exam Lactate Level 09/20/20 10:41: Lactic Acid Level 2.15*H Lactic Acid Level Laboratory Tests Test 09/20/20 10:41 Lactic Acid Level 2.15 MMOL/L (0.50-2.00) *H Progress/Results/Core Measures Results/Orders Lab Results Laboratory Tests Test 09/20/20 10:28 09/20/20 10:41 Range/Units Urine Color YELLOW Urine Clarity CLEAR Urine pH 5.5 5-9 Urine Specific [place] <=1.005 1.016-1.022 Urine Protein NEGATIVE NEGATIVE Urine Glucose (UA) NEGATIVE NEGATIVE Urine Ketones 1+ H NEGATIVE Urine Nitrite NEGATIVE NEGATIVE Urine Bilirubin NEGATIVE NEGATIVE Urine Urobilinogen 0.2 < = 1.0 MG/DL Urine Leukocyte Esterase 1+ H NEGATIVE Urine RBC (Auto) TRACE-I NEGATIVE Urine RBC NONE /HPF Urine WBC 10-25 H /HPF Urine Squamous Epithelial Cells 25-50 H /HPF Urine Crystals NONE /LPF Urine Bacteria FEW H /HPF Urine Casts PRESENT /LPF Urine Hyaline Casts 0-2 H /LPF Urine Mucus SMALL H /LPF Urine Culture Indicated NO White Blood Count 11.2 H 4.3-11.0 10^3/uL Red Blood Count 3.96 L 4.35-5.85 10^6/uL Hemoglobin 12.5 11.5-16.0 G/DL Hematocrit 37 35-52 % Mean Corpuscular Volume 94 80-99 FL Mean Corpuscular Hemoglobin 32 25-34 PG Mean Corpuscular Hemoglobin Concent 34 32-36 G/DL Red Cell Distribution Width 13.4 10.0-14.5 % Platelet Count 211 130-400 10^3/uL Mean Platelet Volume 10.6 H 7.4-10.4 FL Immature Granulocyte % (Auto) 0 % Neutrophils (%) (Auto) 81 H 42-75 % Lymphocytes (%) (Auto) 10 L 12-44 % Monocytes (%) (Auto) 9 0-12 % Eosinophils (%) (Auto) 0 0-10 % Basophils (%) (Auto) 0 0-10 % Neutrophils # (Auto) 9.1 H 1.8-7.8 X 10^3 Lymphocytes # (Auto) 1.1 1.0-4.0 X 10^3 Monocytes # (Auto) 1.0 0.0-1.0 X 10^3 Eosinophils # (Auto) 0.0 0.0-0.3 10^3/uL Basophils # (Auto) 0.0 0.0-0.1 10^3/uL Immature Granulocyte # (Auto) 0.0 0.0-0.1 10^3/uL Prothrombin Time 14.4 12.2-14.7 SEC INR Comment 1.1 0.8-1.4 Activated Partial Thromboplast Time 39 H 24-35 SEC Sodium Level 129 L 135-145 MMOL/L Potassium Level 3.6 3.6-5.0 MMOL/L Chloride Level 92 L 98-107 MMOL/L Carbon Dioxide Level 25 21-32 MMOL/L Anion Gap 12 5-14 MMOL/L Blood Urea Nitrogen 13 7-18 MG/DL Creatinine 1.02 0.60-1.30 MG/DL Estimat Glomerular Filtration Rate 51 BUN/Creatinine Ratio 13 Glucose Level 165 H 70-105 MG/DL Lactic Acid Level 2.15 *H 0.50-2.00 MMOL/L Calcium Level 9.4 8.5-10.1 MG/DL Corrected Calcium 9.5 8.5-10.1 MG/DL Total Bilirubin 0.9 0.1-1.0 MG/DL Aspartate Amino Transf (AST/SGOT) 18 5-34 U/L Alanine Aminotransferase (ALT/SGPT) 8 0-55 U/L Alkaline Phosphatase 85 40-136 U/L Troponin I < 0.30 <0.30 NG/ML Total Protein 7.4 6.4-8.2 GM/DL Albumin 3.9 3.2-4.5 GM/DL Lipase 16 8-78 U/L My Orders Orders - NORIS WANG MD Ua Culture If Indicated (09/20/20 10:27) Comprehensive Metabolic Panel (09/20/20 10:39) Lipase (09/20/20 10:39) Ed Iv/Invasive Line Start (09/20/20 10:39) Cbc With Automated Diff (09/20/20 10:39) Ct Abdomen/Pelvis W (09/20/20 10:39) Protime With Inr (09/20/20 10:39) Partial Thromboplastin Time (09/20/20 10:39) Lactic Acid Analyzer (09/20/20 10:39) Ekg Tracing (09/20/20 10:39) Monitor-Rhythm Ecg Trace Only (09/20/20 10:39) Troponin I Fs (09/20/20 10:39) Ns Iv 1000 Ml (Sodium Chloride 0.9%) (09/20/20 10:54) Ondansetron Injection (Zofran Injectio (09/20/20 10:54) Pantoprazole Injection (Protonix Injecti (09/20/20 10:54) Fentanyl Inj (Sublimaze Injection) (09/20/20 10:54) Iohexol Injection (Omnipaque 350 Mg/Ml 1 (09/20/20 11:15) Received Contrast (Hold Metformin- Contr (09/20/20 11:15) Sodium Chloride Flush (Catheter Flush Sy (09/20/20 11:15) Ns (Ivpb) (Sodium Chloride 0.9% Ivpb Bag (09/20/20 11:15) Ondansetron Injection (Zofran Injectio (09/20/20 11:42) Ondansetron Injection (Zofran Injectio (09/20/20 11:44) Ondansetron Injection (Zofran Injectio (09/20/20 11:45) Ciprofloxacin Tablet (Cipro Tablet) (09/20/20 12:18) Metronidazole 500mg/100ml Ivpb (Flagyl 5 (09/20/20 12:18) Medications Given in ED Current Medications Medications Dose Ordered Sig/Edmar Route Start Time Stop Time Status Last Admin Dose Admin Iohexol 100 ml ONCE ONCE IV 09/20/20 11:15 09/20/20 11:16 DC 09/20/20 11:33 100 ML Sodium Chloride 10 ml NEEDED PRN IV 09/20/20 11:15 09/20/20 14:00 DC 09/20/20 11:33 10 ML Sodium Chloride 100 ml ONCE ONCE IV 09/20/20 11:15 09/20/20 11:16 DC 09/20/20 11:33 100 ML Vital Signs/I&O 09/20/20 09/20/20 10:28 14:01 Temp 36.3 36.3 Pulse 100 89 Resp 16 16 B/P (MAP) 123/70 (87) 125/70 (87) Pulse Ox 97 97 O2 Delivery Room Air Progress Progress Note #1: Progress Note Check urinalysis as well as labs. Give IV fluids for hydration, Zofran for nausea, fentanyl for pain. CT scan to evaluate for diverticulitis versus colitis versus pancreatitis versus kidney stone versus UTI versus pyelonephritis Progress Note #2: Progress Note Labs appear stable with mild elevation of the white blood cell count and lactic acid just over 2. She has no definite urinary tract infection and she has a lot of epithelial cells contaminated specimen. Her chemistry appeared to be stable without acute significant normality. Her CT scan did demonstrate diverticulitis in the transverse colon. There is no perforation or abscess. Reviewed results with the patient and family and options of IV antibiotics in the hospital versus outpatient. Since she has no definite perforation or abscess and labs appear stable will try an IV dose of Flagyl here as well as oral dose of Cipro and then discharged on oral versions of these. Prescribed Reglan so it does not interfere with the Cipro. Counseled on follow-up and return precautions. Advised that she was not tolerating oral medications and fluids that she would need to be admitted for IV medications. If she has worsening pain and symptoms to also return or seek medical care in [place] for admission. Initial ECG Impression Date: Sep 20, 2020 Initial ECG Impression Time: 10:47 Initial ECG Rate: 87 Initial ECG Rhythm: Normal Sinus Initial ECG Comparisson: No Previous ECG Available Comment Normal sinus rhythm with a heart rate of 87 bpm. IN interval [address] elevation. QT interval 394 ms with a QTc interval 474 ms. No prior tracing available for comparison. Diagnostic Imaging Diagonstic Imaging: CT Plain Films/CT/US/NM/MRI: abdomen, pelvis Comments [facility] [place], [place] NAME: DAVID STEWART [facility] REC#: [id number] PT STATUS: DEP ER : [id number] PHYSICIAN: NORIS WANG MD ADMIT DATE: 09/20/20/ER FS Signed Date of Exam:09/20/20 CT ABDOMEN/PELVIS W PROCEDURE: CT abdomen and pelvis with contrast. TECHNIQUE: Multiple contiguous axial images were obtained through the abdomen and pelvis after administration of intravenous contrast. Auto Exposure Controls were utilized during the CT exam to meet ALARA standards for radiation dose reduction. All CT scans use one or more of the following dose optimizing techniques: automated exposure control, MA and/or KvP adjustment based on patient size and exam type or iterative reconstruction. INDICATION: Nausea, vomiting and diarrhea as well as left-sided abdominal pain. Patient has history of cervical carcinoma. Correlation is made with prior CT from 07/26/2018. There is a moderate-sized hiatal hernia. Lung bases are clear. Liver is unremarkable. No masses identified. Gallbladder surgically absent. There is no biliary duct dilatation. Pancreas and spleen are unremarkable. No adrenal mass is identified. Kidneys are unremarkable. There is significant inflammation involving the transverse colon near the splenic flexure. There is significant diverticular disease throughout the colon confines are suggestive of acute diverticulitis. No definite fluid collection is seen. A small amount of free fluid in the pelvis. Bladder is unremarkable. IMPRESSION: Findings consistent with acute diverticulitis of the transverse colon without evidence of abscess formation or bowel obstruction. Dictated by: Dictated on workstation # [id number] Dict: 09/20/20 1148 Trans: 09/20/20 1632 [facility] [id number] Interpreted by: CHARLIE PADGETT MD Electronically signed by: CHARLIE PADGETT MD 09/20/20 1632 Reviewed: Reviewed by Me Departure Impression Primary Impression: Diverticulitis of large intestine without complication Disposition: HOME, SELF-CARE Condition: Stable Departure-Patient Inst. Decision time for Depature: 13:47 Referrals: SELFCHRISTIN MD (PCP/Family) Primary Care Physician Patient Instructions: Diverticulitis (DC) Add. Discharge Instructions: Take antibiotics until gone. Follow up with clinic for continued concerns or if not improving. Return or seek medical care for worsening symptoms if you need admit for IV antibiotics and further care Consider a liquid diet for next 24-48 hours and use Acetaminophen for pain. Scripts Metronidazole (Metronidazole) 500 Mg Tablet 500 MG PO TID for diverticulitis for 7 Days, #21 TAB 0 Refills Prov: NORIS WANG MD 09/20/20 Ciprofloxacin HCl (Ciprofloxacin HCl) 250 Mg Tablet 250 MG PO BID for diverticulitis for 7 Days, #14 TAB 0 Refills Prov: NORIS WANG MD 09/20/20 Metoclopramide HCl (Metoclopramide HCl) 10 Mg Tablet 10 MG PO Q6H PRN for NAUSEA/VOMITING for 5 Days, #20 TAB 0 Refills Prov: NORIS WANG MD 09/20/20 NORIS WANG MD Sep 20, 2020 10:45
[2020-09-20 10:51] LABS: HEMATOCRIT 37 % (35-52); HEMOGLOBIN 12.5 G/DL (11.5-16.0); LYMPHOCYTES % (AUTO) 10 % (12-44); MEAN CORPUSCULAR HEMOGLOBIN 32 PG (25-34); MEAN CORPUSCULAR HGB CONC 34 G/DL (32-36); MEAN CORPUSCULAR VOLUME 94 FL (80-99); MEAN PLATELET VOLUME 10.6 FL (7.4-10.4); NEUTROPHILS % (AUTO) 81 % (42-75); PLATELET COUNT 211 10^3/uL (130-400); WHITE BLOOD COUNT 11.2 10^3/uL (4.3-11.0)
[2020-09-20 10:52] LABS: CLARITY,URINE CLEAR; COLOR,URINE YELLOW; GLUCOSE, URINE (UA) NEGATIVE (NEGATIVE); PH,URINE 5.5 (5-9); PROTEIN,URINE NEGATIVE (NEGATIVE)
[2020-09-20 10:52] LABS: BASOPHILS % (AUTO) 0 % (0-10); EOSINOPHILS % (AUTO) 0 % (0-10); LYMPHOCYTES # (AUTO) 1.1 X 10^3 (1.0-4.0); MONOCYTES % (AUTO) 9 % (0-12); NEUTROPHILS # (AUTO) 9.1 X 10^3 (1.8-7.8)
[2020-09-20 10:53] LABS: BACTERIA,URINE FEW /HPF; BILIRUBIN,URINE NEGATIVE (NEGATIVE); HYALINE CASTS, URINE 0-2 /LPF; KETONES,URINE 1+ (NEGATIVE); LEUKOCYTE ESTERASE ,URINE 1+ (NEGATIVE); NITRITE,URINE NEGATIVE (NEGATIVE); SQUAMOUS EPITHELIAL CELL,UR 25-50 /HPF
[2020-09-20] MEDS ORDERED: PANTOPRAZOLE 40 MG (PROTONIX) VIAL IV STA (10:54)
[2020-09-20] MEDS ORDERED: fentaNYL INJ 100 MCG/2 ML AMP IVP STA (10:54)
[2020-09-20] MEDS ORDERED: NS IV 1000 ML 1,000 ML IV STA (10:54)
[2020-09-20] MEDS ORDERED: ONDANSETRON 4 MG/2 ML (SDV) Z0FRAN IVP STA ×2 (10:54→11:44)
[2020-09-20 11:06] LABS: INR 1.1 (0.8-1.4); PROTHROMBIN TIME PATIENT 14.4 SEC (12.2-14.7)
[2020-09-20 11:07] LABS: ALBUMIN 3.9 GM/DL (3.2-4.5); BILIRUBIN,TOTAL 0.9 MG/DL (0.1-1.0); CALCIUM 9.4 MG/DL (8.5-10.1); CREATININE SERUM 1.02 MG/DL (0.60-1.30); POTASSIUM 3.6 MMOL/L (3.6-5.0); TOTAL PROTEIN 7.4 GM/DL (6.4-8.2)
[2020-09-20] MEDS ORDERED: IOHEXOL 350 MG/ML 100 ML (OMNIPAQUE 350) VIAL IV ONE (11:15)
[2020-09-20] MEDS ORDERED: NS 100 ML (IVPB) BAG IV ONE (11:15)
[2020-09-20] MEDS ORDERED: CATHETER FLUSH 10 ML SYR IV PRN (11:15)
[2020-09-20] MEDS ORDERED: HOLD METFORMIN - RECEIVED CONTRAST 20 ML VIAL IV SCH (11:15)
[2020-09-20] MEDS ORDERED: ONDANSETRON 4 MG/2 ML (SDV) Z0FRAN ONE (11:42)
[2020-09-20] MEDS ORDERED: ONDANSETRON 4 MG/2 ML (SDV) Z0FRAN IVP ONE (11:45)
--- NOTE | 2020-09-20 12:00 | Diagnostic Imaging Report ---
PROCEDURE: CT abdomen and pelvis with contrast. TECHNIQUE: Multiple contiguous axial images were obtained through the abdomen and pelvis after administration of intravenous contrast. Auto Exposure Controls were utilized during the CT exam to meet ALARA standards for radiation dose reduction. All CT scans use one or more of the following dose optimizing techniques: automated exposure control, MA and/or KvP adjustment based on patient size and exam type or iterative reconstruction. INDICATION: Nausea, vomiting and diarrhea as well as left-sided abdominal pain. Patient has history of cervical carcinoma. Correlation is made with prior CT from 07/26/2018. There is a moderate-sized hiatal hernia. Lung bases are clear. Liver is unremarkable. No masses identified. Gallbladder surgically absent. There is no biliary duct dilatation. Pancreas and spleen are unremarkable. No adrenal mass is identified. Kidneys are unremarkable. There is significant inflammation involving the transverse colon near the splenic flexure. There is significant diverticular disease throughout the colon confines are suggestive of acute diverticulitis. No definite fluid collection is seen. A small amount of free fluid in the pelvis. Bladder is unremarkable. IMPRESSION: Findings consistent with acute diverticulitis of the transverse colon without evidence of abscess formation or bowel obstruction. Dictated by: Dictated on workstation # [id number]
[2020-09-20] MEDS ORDERED: metroNIDAZOLE 500MG/100ML IVPB 100 ML IV STA (12:18)
[2020-09-20] MEDS ORDERED: CIPROFLOXACIN 500 MG (CIPRO) TABLET PO STA (12:18)
[2020-09-20] MEDS ORDERED: METR-145 PO (13:51)
[2020-09-20] MEDS ORDERED: MTC10T PO (13:51)
[2020-09-20] MEDS ORDERED: CIPR250T3 PO (13:51)
[2020-09-20 14:01] VITALS: BP 125/70
== END 2020-09-20 14:00 | disposition home or self-care (01) ==
LOC: EDUNIT# 10:14 → ER FS 10:16
DX: K57.32 Diverticulitis of large intestine without perforation or abscess without bleeding (principal); I10 Essential (primary) hypertension; K21.9 Gastro-esophageal reflux disease without esophagitis; E03.9 Hypothyroidism, unspecified; Z79.82 Long term (current) use of aspirin; Z79.899 Other long term (current) drug therapy; Z79.890 Hormone replacement therapy
CPT/HCPCS: 36415; 74177; 80053; 81000; 83605; 83690; 84484; 85025; 85610; 85730; 87088; 93005; 93041

== ENCOUNTER 2020-11-14 08:58 | Inpatient (IN) | payer MEDICARE ==
[~2020-11-14] VITALS: Ht 157.5 cm; Wt 51.3 kg
[~2020-11-14 08:58] MED LIST changes: +CIPR250T3 PO; +METR-145 PO; +MTC10T PO
[2020-11-14] MEDS ORDERED: NS IV 1000 ML 1,000 ML IV STA (09:08)
[2020-11-14] MEDS ORDERED: PANTOPRAZOLE 40 MG (PROTONIX) VIAL IV STA (09:08)
--- NOTE | 2020-11-14 09:09 | ED GI ---
General Stated Complaint: BLACK STOOL Source of Information: Patient, Old Records History of Present Illness Date Seen by Provider: Nov 14, 2020 Time Seen by Provider: 09:01 Initial Comments 89-year-old female presenting with epigastric pain and some diffuse abdominal tenderness. She also states that she has been having black stools since . She went to the walk-in clinic today and they did a test on her stool that was positive for Hemoccult positive blood. They also had said that she was hypotensive with a blood pressure of 80/54. Patient reports getting dizzy and lightheaded when she stands up but her blood pressure was in the 120s systolic here. She took Ex-Lax last night because she thought she might be stopped up and constipated. This has been causing her to have looser watery stools today. She reports having history of diverticulitis and ulcers with an episode of GI bleeding over 4-5 years ago when she had to be admitted to [facility] and was given 3 units of blood. She reports having upper GI with Dr. Gómez at [facility] in [place] on Monday and being told everything looks ok. She has nausea but no vomiting. Denies burning or pain with urination. No fever, chills, chest pain, shortness of breath. Timing/Duration: 2-3 Days Severity/Quality: Moderate, Aching, Cramping Location: Generalized Abdomen (but worse in epigastric area) Modifying Factors: Worsens With Palpation Associated Symptoms: No Back Pain, No Chest Pain, No Diaphoresis, No Fever/Chills; Fatigue; No Headache, No Heartburn; Nausea/Vomiting (nausea but no vomiting); No Rash, No Shortness of Air, No Swelling/Mass in Abdomen, No Syncope; Weakness Allergies and Home Medications Allergies Coded Allergies: codeine (Unverified Allergy, Unknown, NAUSEA, 07/26/18) nut - unspecified (Verified Allergy, Unknown, anaphylaxis , 07/31/20) hydrocodone (Verified Adverse Reaction, Unknown, nausea/vomiting , 07/31/20) nitrofurantoin (Verified Adverse Reaction, Unknown, nausea/vomiting , 07/31/20) Patient Home Medication List Home Medication List Reviewed: Yes Estrogens Conjugated (Premarin) 30 Gm Cr, VG WEEK, (Reported) Entered as Reported by: YANDY GATES on 07/26/18 1623 Fexofenadine HCl (Carlie Allergy) 180 Mg Tablet, 180 MG PO HS, (Reported) Entered as Reported by: KAMILAH LEVIN on 02/23/18 1225 Garlic (Garlic) 1,000 Mg Capsule, 1,000 MG PO MoWeFr, (Reported) Entered as Reported by: HUGO CORCORAN on 05/17/16 0937 Levothyroxine Sodium (Levothyroxine Sodium) 100 Mcg Tablet, 100 MCG PO DAILY, (Reported) Entered as Reported by: NORIS WANG on 11/14/20 0936 Last Action: New Order Melatonin (Melatonin) 10 Mg Capsule, 10 MG PO HS, (Reported) Entered as Reported by: YANDY GATES on 07/26/18 1623 Metoprolol Succinate (Metoprolol Succinate) 25 Mg Tab.er.24h, 25 MG PO DAILY Prescribed by: ANGEL BOURGEOIS on 07/27/18 1112 Pantoprazole Sodium (Pantoprazole Sodium) 40 Mg Tablet., 40 MG PO DAILY, (Reported) Entered as Reported by: YANDY GATES on 07/26/18 1623 Papaya (Papaya Enzyme) 1 Each Tablet, 2 TAB PO BID, (Reported) Entered as Reported by: KAMILAH LEVIN on 02/23/18 1222 Temazepam (Temazepam) 15 Mg Capsule, 15 MG PO HS, (Reported) Entered as Reported by: KAMILAH LEVIN on 02/23/18 1225 Wheat Dextrin (Benefiber) 144 Gm Powder, 1 TSP PO BID, (Reported) Entered as Reported by: KAMILAH LEVIN on 02/23/18 1225 [Skelatal Support Vit] , 1 TAB PO BID, (Reported) Entered as Reported by: YANDY GATES on 07/26/18 1623 Discontinued Medications Aspirin (Aspirin EC) 81 Mg Tablet.dr, 81 MG PO MoWeFr, (Reported) Entered as Reported by: YANDY GATES on 07/26/18 1623 Last Action: Discontinued Cephalexin (Cephalexin) 500 Mg Tablet, 500 MG PO QID Prescribed by: HANNAH MCNAIR on 07/31/20 1535 Last Action: Discontinued Ciprofloxacin HCl (Ciprofloxacin HCl) 250 Mg Tablet, 250 MG PO BID Prescribed by: NORIS WANG on 09/20/20 1351 Last Action: Discontinued Levothyroxine Sodium (Levothyroxine Sodium) 88 Mcg Tablet, 88 MCG PO DAILY, (Reported) Entered as Reported by: KAMILAH LEVIN on 02/23/18 1222 Last Action: Discontinued Metoclopramide HCl (Metoclopramide HCl) 10 Mg Tablet, 10 MG PO Q6H PRN for NAUSEA/VOMITING Prescribed by: NORIS WANG on 09/20/20 1351 Last Action: Discontinued Metronidazole (Metronidazole) 500 Mg Tablet, 500 MG PO TID Prescribed by: NORIS WANG on 09/20/20 135 Last Action: Discontinued Review of Systems Review of Systems Constitutional: No chills; dizziness (with standing); No fever EENTM: No Symptoms Reported Respiratory: No Symptoms Reported Cardiovascular: No Symptoms Reported Gastrointestinal: See HPI Genitourinary: No Symptoms Reported Musculoskeletal: no symptoms reported Skin: no symptoms reported Psychiatric/Neurological: Denies Headache, Denies Numbness, Denies Paresthesia Hematologic/Lymphatic: Denies Blood Clots Past [id number] Hx Patient Social History Tobacco Use?: No Substance use?: No Alcohol Use?: No Seasonal Allergies Seasonal Allergies: Yes Past Medical History Surgery/Hospitalization HX: Diverticulitis, Bleeding ulcers, Hx of blood transfusion due to GI bleed Surgeries: Yes (D&C, OVARIAN CYSTECTOMY, VAGINAL MESH PLACED X2 ) Appendectomy, Gallbladder, Hysterectomy Respiratory: Yes (chronic cough ) Cardiac: Yes Atrial Fibrillation, High Cholesterol, Hypertension, Irregular Heartbeat Neurological: No Reproductive Disorders: No 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 Sexually Transmitted Disease: No HIV/AIDS: No Genitourinary: Yes UTI-Chronic Gastrointestinal: Yes Gastroesophageal Reflux, Diverticulosis, Irritable Bowel Musculoskeletal: Yes Arthritis, Chronic Back Pain Endocrine: Yes Hypothyroidsim HEENT: Yes (cataracts removed, ) Loss of Vision: Bilateral Hearing Impairment: Denies Cancer: Yes Cervical What Type of Treatment Did You: Surgical Intervention Psychosocial: No Integumentary: No Blood Disorders: No Adverse Reaction/Blood Tranf: No (HAS HAD BLOOD WITH NO REACTION) Physical Exam Vital Signs Vital Signs - First Documented 11/14/20 09:06 Temp 36.1 Pulse 90 Resp 18 B/P (MAP) 124/64 (84) Pulse Ox 96 O2 Delivery Room Air Capillary Refill : Height/Weight/BMI Height: 5'2.00" Weight: 122lbs. 7.0oz. [id number]; 21.00 BMI Method:Stated General Appearance: WD/WN, no apparent distress HEENT: pharynx normal Neck: non-tender, full range of motion, supple, normal inspection Respiratory: chest non-tender, lungs clear, normal breath sounds Cardiovascular: normal peripheral pulses, regular rate, rhythm Gastrointestinal: normal bowel sounds, soft, no pulsatile mass; No distended, No guarding, No rebound; tenderness (mild diffuse tenderness to palpation worse in epigastric area); No mass Rectal: deferred, heme positive stool (from stool specimen collected with bowel movement) Extremities: normal range of motion, non-tender, normal capillary refill Neurologic/Psychiatric: acds block 1 operator II-XII nml as tested, no motor/sensory deficits, alert, normal mood/affect, oriented x 3 Skin: normal color, warm/dry Images 1 - Mild diffuse tenderness to abdomen with worse pain in epigastric area. No rebound or guarding Focused Exam Lactate Level 11/14/20 09:13: Lactic Acid Level 2.52*H Lactic Acid Level Laboratory Tests Test 11/14/20 09:13 Lactic Acid Level 2.52 MMOL/L (0.50-2.00) *H Progress/Results/Core Measures Results/Orders Lab Results Laboratory Tests Test 11/14/20 09:13 Range/Units White Blood Count 8.2 4.3-11.0 10^3/uL Red Blood Count 3.99 3.80-5.11 10^6/uL Hemoglobin 12.4 11.5-16.0 g/dL Hematocrit 39 35-52 % Mean Corpuscular Volume 97 80-99 fL Mean Corpuscular Hemoglobin 31 25-34 pg Mean Corpuscular Hemoglobin Concent 32 32-36 g/dL Red Cell Distribution Width 13.6 10.0-14.5 % Platelet Count 307 130-400 10^3/uL Mean Platelet Volume 10.6 9.0-12.2 fL Immature Granulocyte % (Auto) 0 % Neutrophils (%) (Auto) 67 42-75 % Lymphocytes (%) (Auto) 24 12-44 % Monocytes (%) (Auto) 8 0-12 % Eosinophils (%) (Auto) 1 0-10 % Basophils (%) (Auto) 0 0-10 % Neutrophils # (Auto) 5.5 1.8-7.8 X 10^3 Lymphocytes # (Auto) 1.9 1.0-4.0 X 10^3 Monocytes # (Auto) 0.6 0.0-1.0 X 10^3 Eosinophils # (Auto) 0.1 0.0-0.3 10^3/uL Basophils # (Auto) 0.0 0.0-0.1 10^3/uL Immature Granulocyte # (Auto) 0.0 0.0-0.1 10^3/uL Prothrombin Time 13.0 12.2-14.7 SEC INR Comment 1.0 0.8-1.4 Activated Partial Thromboplast Time 26 24-35 SEC Sodium Level 137 135-145 MMOL/L Potassium Level 3.7 3.6-5.0 MMOL/L Chloride Level 98 98-107 MMOL/L Carbon Dioxide Level 29 21-32 MMOL/L Anion Gap 10 5-14 MMOL/L Blood Urea Nitrogen 15 7-18 MG/DL Creatinine 1.16 0.60-1.30 MG/DL Estimat Glomerular Filtration Rate 44 BUN/Creatinine Ratio 13 Glucose Level 110 H 70-105 MG/DL Lactic Acid Level 2.52 *H 0.50-2.00 MMOL/L Calcium Level 9.9 8.5-10.1 MG/DL Corrected Calcium 9.6 8.5-10.1 MG/DL Total Bilirubin 0.4 0.1-1.0 MG/DL Aspartate Amino Transf (AST/SGOT) 22 5-34 U/L Alanine Aminotransferase (ALT/SGPT) 11 0-55 U/L Alkaline Phosphatase 80 40-136 U/L Total Protein 8.0 6.4-8.2 GM/DL Albumin 4.4 3.2-4.5 GM/DL Lipase 27 8-78 U/L My Orders Orders - NORIS WANG MD Comprehensive Metabolic Panel (11/14/20 09:05) Lipase (11/14/20 09:05) Ed Iv/Invasive Line Start (11/14/20 09:05) Cbc With Automated Diff (11/14/20 09:05) Ct Abdomen/Pelvis W (11/14/20 09:05) Lactic Acid Analyzer (11/14/20 09:05) Protime With Inr (11/14/20 09:05) Partial Thromboplastin Time (11/14/20 09:05) Ekg Tracing (11/14/20 09:05) Monitor-Rhythm Ecg Trace Only (11/14/20 09:05) Ns Iv 1000 Ml (Sodium Chloride 0.9%) (11/14/20 09:08) Pantoprazole Injection (Protonix Injecti (11/14/20 09:08) Ondansetron Injection (Zofran Injectio (11/14/20 09:18) Fecal Occult Bedside (11/14/20 09:18) Urine Culture (11/14/20 09:36) Urinalysis (11/14/20 09:38) Iohexol Injection (Omnipaque 350 Mg/Ml 1 (11/14/20 10:00) Received Contrast (Hold Metformin- Contr (11/14/20 10:00) Sodium Chloride Flush (Catheter Flush Sy (11/14/20 10:00) Ns (Ivpb) (Sodium Chloride 0.9% Ivpb Bag (11/14/20 10:00) Orthostatic Vital Signs (Adult (11/14/20 09:52) Medications Given in ED Current Medications Medications Dose Ordered Sig/Edmar Route Start Time Stop Time Status Last Admin Dose Admin Iohexol 75 ml ONCE ONCE IV 11/14/20 10:00 11/14/20 10:01 DC 11/14/20 10:05 75 ML Sodium Chloride 10 ml NEEDED PRN IV 11/14/20 10:00 11/14/20 10:05 10 ML Sodium Chloride 100 ml ONCE ONCE IV 11/14/20 10:00 11/14/20 10:01 DC 11/14/20 10:05 100 ML Vital Signs/I&O 11/14/20 11/14/20 11/14/20 09:06 10:28 11:21 Temp 36.1 Pulse 90 88 88 96 95 Resp 18 17 B/P (MAP) 124/64 (84) 119/62 (81) 148/80 119/75 (90) 138/68 (91) Pulse Ox 96 96 O2 Delivery Room Air Room Air Progress Progress Note #1: Progress Note Patient provided a stool specimen by bowel movement on arrival to the ED. She was unable to provide a urine specimen yet. The stool when checked by Hemoccult was heme positive. It was watery and had a dark brown color. Obtain labs and coags. Give IV fluids for hydration, Zofran for nausea, Protonix for possible gastritis or ulcer. Order CT scan of the abdomen and pelvis to evaluate for signs of perforation, ischemic bowel, diverticulitis, colitis, gastritis, abdominal mass, fluid collection. Lactic acid was also ordered to help screen for ischemic bowel. Progress Note #2: Time: 09:44 Progress Note No acute significant abnormality on ECG. Coags normal and not elevated. CBC stable without elevation or WBC and Hgb stable at 12.4. Platelets normal at 307. 0948 Lab called that her Lactic acid was slightly elevated to 2.52. She does have mild drop in her GFR to 44, down from September 20 when it was 51, and Cr slightly up to 1.16, so likely a little dry. She is getting IVF for hydration. Lipase pending and still no urine specimen. Pt going to CT scan now and will reduce IV contrast load since she is a little dry with GFR at 44. Progress Note #3: Time: 10:36 Progress Note Lipase normal at 27. CT scan does not show any acute significant abnormality. She has chronic thickening of fundus of stomach and small hiatal hernia. Orthostatic vital signs stable without patient dropping her blood pressure. She is on Metoprolol so her heart rate is staying steady in 70-80s. With her still feeling a little dizzy when she stands and having heme positive stools and her age of 89 and living alone will check with transmission inspector physician for [facility] about observation admit to monitor blood count and consider endoscopy if she has drop in Hgb and continued melanotic stools. [address] Bourgeois about the patient and her vital signs as well as test results. With her age, dizziness with standing, heme positive stools, and initial blood pressure of 80/54 per the walk-in urgent care will admit to the ICU for closer monitoring. She has been hemodynamically stable here in the ED with blood pressures all above [address] YOUNG with general surgery notified of consult of the patient. He stated that he would be happy to consult on the patient and will see her later. Progress Note #4: Time: 11:06 Progress Note Patient is adamant that she will not go by ambulance transport as she states it gives her too much pain to ride in the ambulance. She wants her son, Dr. Holland, to drive her to [facility]. He is agreeable to transport her. She states that she understands the risk of transport by private vehicle rather than ambulance where she can be monitored and continue to receive IV fluid hydration. If she has sudden loss of blood, sudden drop in blood pressure or sudden change in her condition there is nothing that can be done in private vehicle vs medical transport. Despite explaining this in detail by both myself and nursing staff, the patient continues to refuse ambulance transport and will only go by private vehicle with her son. She will sign a declination of care form confirming that she is declining medical transport and understands the risks and benefits. Initial ECG Impression Date: Nov 14, 2020 Initial ECG Impression Time: 09:22 Initial ECG Rate: 78 Initial ECG Rhythm: Normal Sinus Initial ECG Comparisson: Unchanged Comment Normal sinus rhythm with a heart rate of 78 bpm. WA interval [address] elevation. QT interval 403 ms with a QTc interval 460 ms. Appears similar to prior tracings in the system. Diagnostic Imaging Diagonstic Imaging: CT Plain Films/CT/US/NM/MRI: abdomen, pelvis Comments NAME: DAVID ST[facility] REC#: [id number] PT STATUS: REG ER : [id number] PHYSICIAN: NORIS WANG MD ADMIT DATE: 11/14/20/ER FS Draft Date of Exam:11/14/20 CT ABDOMEN/PELVIS W EXAMINATION: CT abdomen and pelvis with intravenous contrast. TECHNIQUE: Multiple contiguous axial images were obtained through the abdomen and pelvis after the uneventful administration of intravenous contrast. All CT scans use one or more of the following dose optimizing techniques: automated exposure control, MA and/or KvP adjustment based on patient size and exam type or iterative reconstruction. HISTORY: Bloody stools and hypotension COMPARISON: 09/20/2020 FINDINGS: Limited views of the lower thorax show unchanged high attenuating foci at the gastroesophageal junction which may represent surgical material. This may represent a fundoplication. There is a small hiatal hernia. The liver is normal without focal lesion. There is no biliary ductal dilation. Gallbladder is surgically absent. Pancreas is normal. Spleen is normal. Adrenal glands are normal. The kidneys are normal. There is no hydronephrosis. Urinary bladder is normal. Visualized bowel is normal in caliber without obstruction or inflammation. There is diverticulosis without diverticulitis. No free fluid or air. No abdominal or pelvic lymphadenopathy. Aorta is normal in caliber without aneurysm. There are no suspicious osseus lesions. There is degenerative disc disease at L2-L3 with mild retrolisthesis of L2 on L3. IMPRESSION: 1. No acute abnormality in the abdomen or pelvis. Dictated on workstation # [id number] Dict: 11/14/20 1019 Trans: 11/14/20 1032 BANNER [id number] Interpreted by: NORA CARDENAS MD Electronically signed by: Departure Communication (Admissions) Time/Spoke to Admitting Phy: 10:[address] Bourgeois about the patient as she was on-call for [facility]. Althou gh the patient has been hemodynamically stable here in the ED she was concerned about the hypertensive blood pressure reported of 80/54 from the walk-in urgent care so she requested an ICU bed for initial admission. Will consult Dr. YOUNG with general surgery so that he can follow along as well. Time/Spoke to Consulting Phy: 11:[address] YOUNG of the admission of patient to the [facility] service with Dr. Bourgeois. Patient currently is hemodynamically stable but has had a large GI bleed in the past requiring transfusion. Initially will monitor in the ICU. Impression Primary Impression: GI bleed Qualified Codes: K92.1 - Melena Additional Impressions: Epigastric abdominal pain Dehydration Disposition: 30 STILL A PATIENT Condition: Stable Admissions Decision to Admit Reason: Admit from ER (General) Decision to Admit/Date: Nov 14, 2020 Time/Decision to Admit Time: 10:57 Departure-Patient Inst. Referrals: CHRISTIN CARDONA MD (PCP/Family) Primary Care Physician NORIS WANG MD Nov 14, 2020 09:09
[2020-11-14] MEDS ORDERED: ONDANSETRON 4 MG/2 ML (SDV) Z0FRAN IVP STA (09:18)
[2020-11-14 09:23] LABS: HEMATOCRIT 39 % (35-52); HEMOGLOBIN 12.4 g/dL (11.5-16.0); MEAN CORPUSCULAR HEMOGLOBIN 31 pg (25-34); MEAN CORPUSCULAR HGB CONC 32 g/dL (32-36); MEAN CORPUSCULAR VOLUME 97 fL (80-99); WHITE BLOOD COUNT 8.2 10^3/uL (4.3-11.0)
[2020-11-14 09:24] LABS: BASOPHILS % (AUTO) 0 % (0-10); EOSINOPHILS # (AUTO) 0.1 10^3/uL (0.0-0.3); EOSINOPHILS % (AUTO) 1 % (0-10); LYMPHOCYTES # (AUTO) 1.9 X 10^3 (1.0-4.0); LYMPHOCYTES % (AUTO) 24 % (12-44); MEAN PLATELET VOLUME 10.6 fL (9.0-12.2); MONOCYTES # (AUTO) 0.6 X 10^3 (0.0-1.0); MONOCYTES % (AUTO) 8 % (0-12); NEUTROPHILS # (AUTO) 5.5 X 10^3 (1.8-7.8); NEUTROPHILS % (AUTO) 67 % (42-75); PLATELET COUNT 307 10^3/uL (130-400)
[2020-11-14] MEDS ORDERED: LEVO100T7 PO (09:36)
[2020-11-14 09:46] LABS: CREATININE SERUM 1.16 MG/DL (0.60-1.30); POTASSIUM 3.7 MMOL/L (3.6-5.0)
[2020-11-14 09:47] LABS: ALBUMIN 4.4 GM/DL (3.2-4.5); BILIRUBIN,TOTAL 0.4 MG/DL (0.1-1.0); CALCIUM 9.9 MG/DL (8.5-10.1)
[2020-11-14] MEDS ORDERED: HOLD METFORMIN - RECEIVED CONTRAST 20 ML VIAL IV SCH (10:00)
[2020-11-14] MEDS ORDERED: IOHEXOL 350 MG/ML 100 ML (OMNIPAQUE 350) VIAL IV ONE (10:00)
[2020-11-14] MEDS ORDERED: CATHETER FLUSH 10 ML SYR IV PRN (10:00)
[2020-11-14] MEDS ORDERED: NS 100 ML (IVPB) BAG IV ONE (10:00)
[2020-11-14 10:28] VITALS: BP_SYST 119; BP_SYST 138; BP_DIAS 62; BP_DIAS 68; BP_DIAS 75
--- NOTE | 2020-11-14 10:34 | Diagnostic Imaging Report ---
EXAMINATION: CT abdomen and pelvis with intravenous contrast. TECHNIQUE: Multiple contiguous axial images were obtained through the abdomen and pelvis after the uneventful administration of intravenous contrast. All CT scans use one or more of the following dose optimizing techniques: automated exposure control, MA and/or KvP adjustment based on patient size and exam type or iterative reconstruction. HISTORY: Bloody stools and hypotension COMPARISON: 09/20/2020 FINDINGS: Limited views of the lower thorax show unchanged high attenuating foci at the gastroesophageal junction which may represent surgical material. This may represent a fundoplication. There is a small hiatal hernia. The liver is normal without focal lesion. There is no biliary ductal dilation. Gallbladder is surgically absent. Pancreas is normal. Spleen is normal. Adrenal glands are normal. The kidneys are normal. There is no hydronephrosis. Urinary bladder is normal. Visualized bowel is normal in caliber without obstruction or inflammation. There is diverticulosis without diverticulitis. No free fluid or air. No abdominal or pelvic lymphadenopathy. Aorta is normal in caliber without aneurysm. There are no suspicious osseus lesions. There is degenerative disc disease at L2-L3 with mild retrolisthesis of L2 on L3. IMPRESSION: 1. No acute abnormality in the abdomen or pelvis. Dictated by: Dictated on workstation # [id number]
--- NOTE | 2020-11-14 12:42 | Tele-ICU Consult ---
History of Present Illness History of Present Illness Date Seen by Provider: Nov 14, 2020 Time Seen by Provider: 12:25 Date of Admission This virtual visit was conducted using real time audio/video. Thank you for asking us to see this patient for UGIB HPC: Recent events: Melena and dizziness w standing. PMH: PUD w bleed, diverticulitis, hypothy., GERD SH: smoking history: No FH: Non-contributory ROS: as in HPI. PE: Resting comfortably. VSS BP 125/65RR O2 sat 96% on RA HEENT: No obvious masses, adenopathy or JVD. Chest: clear to auscultation. CV: RRR S1 S2 No murmur or added sounds. Abd: Epigastric tenderness, no rebound.. Bowel sounds Y. : Unremarkable. [place] N. 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 No obvious focal findings. Extremities: No edema. Capillary refill < 3 seconds. Skin: unremarkable. Results: Hb 12.4. CT A and P unremarkable. A/P: UGIB on IVF, PPI and zofran. Available chart/ vitals / labs /images reviewed. Video assessment done using teleICU camera, rest of exam as per RN. Critical Care: critically ill patient. CPM. Discussed with JOSH Lopez. Asked RN to reach out to eICU if any questions or concerns later. Time spent with patientcoordination of care with other health professionals (mins): 20 Allergies and Home Medications Allergies Coded Allergies: codeine (Unverified Allergy, Unknown, NAUSEA, 07/26/18) nut - unspecified (Verified Allergy, Unknown, anaphylaxis , 07/31/20) hydrocodone (Verified Adverse Reaction, Unknown, nausea/vomiting , 07/31/20) nitrofurantoin (Verified Adverse Reaction, Unknown, nausea/vomiting , 07/31/20) Home Medications Estrogens Conjugated 30 Gm Cr, VG WEEK, (Reported) Fexofenadine HCl 180 Mg Tablet, 180 MG PO HS, (Reported) Garlic 1,000 Mg Capsule, 1,000 MG PO MoWeFr, (Reported) Levothyroxine Sodium 100 Mcg Tablet, 100 MCG PO DAILY, (Reported) Melatonin 10 Mg Capsule, 10 MG PO HS, (Reported) Metoprolol Succinate 25 Mg Tab.er.24h, 25 MG PO DAILY Prescribed by: ANGEL BOURGEOIS on 07/27/18 1112 Pantoprazole Sodium 40 Mg Tablet.dr, 40 MG PO DAILY, (Reported) Papaya 1 Each Tablet, 2 TAB PO BID, (Reported) Temazepam 15 Mg Capsule, 15 MG PO HS, (Reported) Wheat Dextrin 144 Gm Powder, 1 TSP PO BID, (Reported) [Skelatal Support Vit] , 1 TAB PO BID, (Reported) Past Medical/Social/Family Hx Patient Social History Tobacco Use?: No Smoking Status: Never a Smoker Substance use?: No Alcohol Use?: No Pt stated abuse/neglect: No Immunizations Up To Date First/Initial COVID19 Vaccinat: n/a Second COVID19 Vaccination Jaquan: n/a Current Status Advance Directives: No Communicates: Verbally Primary Language: Guinean Preferred Spoken Language: Guinean Is interpretation needed?: No Review of Systems Constitutional: see HPI EENTM: see HPI Respiratory: see HPI Gastrointestinal: see HPI Genitourinary: see HPI Musculoskeletal: see HPI Skin: see HPI Psychiatric/Neurological: See HPI All Other Systems Reviewed Negative Unless Noted: Yes Sepsis Event Evaluation Height, Weight, BMI Height: 5'2.00" Weight: 122lbs. 7.0oz. 55.040633bb; 20.00 BMI Method:Stated Exam Exam Patient acknowledged, consented, and participated in this virtual visit which was conducted using real time audio/video Vital Signs Date Time Temp Pulse Resp B/P (MAP) Pulse Ox O2 Delivery O2 Flow Rate FiO2 11/14/20 11:21 88 17 148/80 96 Room Air 11/14/20 10:28 88 119/62 (81) 96 119/75 (90) 95 138/68 (91) 11/14/20 09:06 36.1 90 18 124/64 (84) 96 Room Air Height & Weight Height: 5'2.00" Weight: 122lbs. 7.0oz. 55.996012pv; 20.00 BMI Method:Stated General Appearance: No Apparent Distress Capillary Refill: Less Than 3 Seconds Peripheral Pulses: 1+ Dorsalis Pedis (R), 1+ Left Dors-Pedis (L) (See free text) Gastrointestinal: normal bowel sounds, soft, no pulsatile mass; No distended, No guarding, No rebound; tenderness (mild diffuse tenderness to palpation worse in epigastric area); No mass Results Lab Laboratory Tests 11/14/20 09:13 Assessment/Plan Assessment/Plan See free text Critical Care: Critically Ill Patient MERI JORDAN MD Nov 14, 2020 12:42
[2020-11-14 14:01] LABS: HEMOGLOBIN 10.6 g/dL (11.5-16.0)
[2020-11-14] MEDS: NS IV 1000 ML 1,000 ML IV SCH (14:11)
[2020-11-14 14:37] VITALS: BP 137/84
[2020-11-14] MEDS ORDERED: ONDANSETRON 4 MG/2 ML (SDV) Z0FRAN IVP PRN (15:00)
[2020-11-14] MEDS ORDERED: RT-ALBUTEROL SULF 2.5 MG/3 ML PRE-MIX VIAL INH PRN (15:00)
[2020-11-14] MEDS ORDERED: CALC600T80 PO (15:29)
[2020-11-14] MEDS ORDERED: TRAZ-227 PO (15:29)
[2020-11-14] MEDS ORDERED: CALC-308 PO (15:29)
[2020-11-14] MEDS ORDERED: POTA10TA6 PO (15:29)
[2020-11-14] MEDS ORDERED: CHOL500049 PO (15:29)
[2020-11-14] MEDS ORDERED: MAGN300C PO (15:29)
[2020-11-14] MEDS ORDERED: L.AC1CAP6 PO (15:30)
[2020-11-14] MEDS ORDERED: LORA10TA76 PO (15:30)
--- NOTE | 2020-11-14 15:33 | History & Physical-Hospitalist ---
History of Present Illness HPI/Chief Complaint Chief complaint: GI bleed History present illness: This is an 89-year-old white female who recently had an EGD on Monday at [facility] to check her hiatal hernia repair from years ago and a colonoscopy 1 year ago due to diverticulosis and a previous GI bleed 4 years ago which required multiple transfusions who presented to the [facility] with blood in her stool. She was hypotensive at the walk-in clinic so she was moved over to the ER. Her hemoglobin was stable at that point but due to the history of acute blood loss anemia we will admit her to the ICU. Dr. YOUNG has been consulted. Her son brought her by private vehicle because she refused ambulance transfer. Source: patient Exam Limitations: no limitations Date Seen 11/14/20 Time Seen by a Provider: 13:00 Attending Physician Michelle Shaw DO PCP Self,Silas BENRAL Referring Physician Date of Admission Nov 14, 2020 at 12:22 Home Medications & Allergies Home Medications Reviewed patient Home Medication Reconciliation performed by pharmacy medication reconciliations computer support technician and/or nursing. Patients Allergies have been reviewed. Allergies Allergies Coded Allergies codeine (Unverified Allergy, Unknown, NAUSEA, 07/26/18) nut - unspecified (Verified Allergy, Unknown, anaphylaxis , 07/31/20) hydrocodone (Verified Adverse Reaction, Unknown, nausea/vomiting , 07/31/20) nitrofurantoin (Verified Adverse Reaction, Unknown, nausea/vomiting , 07/31/20) Past Zubwwir-Erzaxs-Epsybg Hx Patient Social History Marrital Status: single Employed/Student: retired Tobacco Use?: No Smoking Status: Never a Smoker Smokeless Tobacco Frequency: Never a User Use of E-Cig and/or Vaping dev: No Substance use?: No Alcohol Use?: No Pt feels they are or have been: No Immunizations Up To Date First/Initial COVID19 Vaccinat: n/a Second COVID19 Vaccination Jaquan: n/a Tetanus Booster (TDap): More Than 5 Years Hepatitis A: No Hepatitis B: No Seasonal Allergies Seasonal Allergies: Yes Current Status status: No status: No Advance Directives: Yes Advance Directive Location: Home Communicates: Points Primary Language: Guinean Preferred Spoken Language: Guinean Is interpretation needed?: No Implanted or Applied Medical D: None Past Medical History Surgeries: Appendectomy, Gallbladder, Hysterectomy Atrial Fibrillation, High Cholesterol, Hypertension, Irregular Heartbeat 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 Sexually Transmitted Disease: No HIV/AIDS: No UTI-Chronic Gastroesophageal Reflux, Gastrointestinal Bleed, Diverticulosis, Irritable Bowel Arthritis, Chronic Back Pain Hypothyroidsim Loss of Vision: Bilateral Hearing Impairment: Denies Cervical What Type of Treatment Did You: Surgical Intervention Blood Disorders: No Adverse Reaction/Blood Tranf: No (HAS HAD BLOOD WITH NO REACTION) Review of Systems Constitutional: see HPI, dizziness, malaise, weakness EENTM: no symptoms reported Respiratory: no symptoms reported Gastrointestinal: loss of appetite, melena, nausea Genitourinary: no symptoms reported Musculoskeletal: no symptoms reported Skin: no symptoms reported Psychiatric/Neurological: No Symptoms Reported Physical Exam Physical Exam Vital Signs Vital Signs - First Documented 11/14/20 09:06 Temp 36.1 Pulse 90 Resp 18 B/P (MAP) 124/64 (84) Pulse Ox 96 O2 Delivery Room Air Capillary Refill : Less Than 3 Seconds Height, Weight, BMI Height: 5'2.00" Weight: 122lbs. 7.0oz. [id number]; 20.68 BMI Method:Stated General Appearance: No Apparent Distress, Chronically ill, Thin Eyes: Right Eye Normal Inspection, Right Eye PERRL HEENT: PERRL/EOMI, Normal ENT Inspection, Pharynx Normal, Moist Mucous Membra carlos alberto Neck: Full Range of Motion, Normal Inspection, Non Tender Respiratory: Chest Non Tender, Lungs Clear, Normal Breath Sounds, No Accessory Muscle Use, No Respiratory Distress Cardiovascular: Regular Rate, Rhythm, No Edema, No Gallop, No JVD, No Murmur, Normal Peripheral Pulses Gastrointestinal: Normal Bowel Sounds, No Organomegaly, No Pulsatile Mass, Soft, Tenderness (Generalized) Back: Normal Inspection, No CVA Tenderness, No Vertebral Tenderness Extremity: Normal Capillary Refill, Normal Inspection, Normal Range of Motion, Non Tender, No Calf Tenderness, No Pedal Edema Neurologic/Psychiatric: Alert, Oriented x3, No Motor/Sensory Deficits, Normal Mood/Affect Skin: Normal Color, Warm/Dry Lymphatic: No Adenopathy Results Results/Procedures Labs Laboratory Tests 11/14/20 09:13 11/14/20 13:30 Patient resulted labs reviewed. Assessment/Plan Admission Diagnosis Assessment: GI bleed with melena suspicion for upper or lower GI bleed Acute blood loss anemia drop 2 points from [facility] to current EGD on Monday at [facility] Diverticulosis Presbycusis Dehydration with elevated lactic acid due to volume depletion Plan: Dr. YOUNG consult ICU Monitor hemoglobin IV fluids Admission Status: Inpatient Order (span 2 midnights) Reason for Inpatient Admission: GI bleed Diagnosis/Problems Diagnosis/Problems (1) GI bleed Status: Acute Qualifiers: GI bleed type/associated pathology: melena Qualified Codes: K92.1 - Melena (2) Dehydration Status: Acute (3) Hypothyroid Qualifiers: Qualified Codes: E03.9 - Hypothyroidism, unspecified MICHELLE SHAW DO Nov 14, 2020 15:33
--- NOTE | 2020-11-14 17:33 | CONSULTATION REPORT ---
DATE OF SERVICE: ATTENDING PRIMARY CARE PHYSICIAN: Dr. Silas Fleming. HISTORY OF PRESENT ILLNESS: The patient is an 89-year-old female who presented to [facility] with epigastric pain. She had also had reported some black tarry stools starting several days ago. She went to a walk-in clinic today and did have a Hemoccult test, which was positive. Upon further questioning, she does report that she has had some episodes of dizziness and lightheadedness. She felt that she was constipated because she does have a history of constipation and did take a laxative, which has caused her to have some looser stools. She does have a history of diverticulosis as well as a history of diverticulitis. She also reports that she did have some form of gastrointestinal bleeding approximately 5 years ago and was admitted to [facility] and was given 3 units of packed red blood cell transfusion. She also had reported that she had recently seen Dr. Ashraf and underwent some form of upper gastrointestinal workup, which did not show any abnormalities. She states that her stools have been dark maroon color since taken laxatives. No red blood per rectum. Her hemoglobin is stable. She also states that she did have a colonoscopy approximately one year ago and diverticulosis was identified; however, she does not remember any other abnormalities. PAST MEDICAL HISTORY: Diverticulosis, diverticulitis, peptic ulcer disease, atrial fibrillation, hypercholesterolemia, hypertension, gastroesophageal reflux disease, irritable bowel syndrome, degenerative joint disease, cataracts. PAST SURGICAL HISTORY: D and C, ovarian cystectomy, vaginal sling x2, appendectomy, laparoscopic cholecystectomy and hysterectomy. SOCIAL HISTORY: Negative smoke, negative alcohol. FAMILY HISTORY: Noncontributory. ALLERGIES: CODEINE, HYDROCODONE, NITROFURANTOIN. MEDICATIONS: Premarin cream 30 grams weekly, fexofenadine 100 mg daily, levothyroxine 100 mcg daily, metoprolol 25 mg daily, Protonix 40 mg daily, temazepam 15 mg daily, aspirin 81 mg daily, cephalexin 500 mg q.i.d., ciprofloxacin 250 mg b.i.d., levothyroxine 88 mcg daily, Reglan p.r.n., metronidazole 500 mg t.i.d. VITAL SIGNS: Temperature 36.2, blood pressure 132/68, pulse 82, respirations 20, pulse ox 96% on room air. REVIEW OF SYSTEMS: Well-nourished female currently in no acute distress. She is not experiencing any shortness of breath or difficulty breathing. No chest pain, palpitations, diaphoresis. No nausea, vomiting; however, does have some epigastric crampy pain. She also does report loose stools as well as a maroon color with her stools as well. No fever, chills, no recent inadvertent weight loss. All other review of systems negative. PHYSICAL EXAMINATION: CHEST: Clear. Good breath sounds bilaterally. HEART: Regular, no murmurs. EXTREMITIES: No lower extremity edema, negative Homans sign. HEENT: No scleral icterus. NECK: No cervical lymphadenopathy. ABDOMEN: Soft, nondistended. There is mild discomfort in the epigastric region upon deep palpation. No peritoneal signs. SKIN: Warm, dry. LABORATORY DATA: WBC 8.2, hemoglobin 10.6, hematocrit 33, platelets 307. BUN 15, creatinine 1.16. Liver function enzymes are normal. ASSESSMENT AND PLAN: An 89-year-old female with what appears to be stable GI bleed and history of diverticulosis as well as peptic ulcer disease. We feel that the majority of her symptoms are more related to gastroesophageal reflux disease; however, this could also represent a diverticular bleed. For now, we will proceed with conservative management with IV hydration and monitoring serial hemoglobin and hematocrit. If she does continue to have bleeding or worsening bleeding, then she may need further endoscopy. Job ID: [id number] DocumentID: [id number] Dictated Date: 11/14/2020 15:45:00 Adjunct Art History Instructor Date: 11/14/2020 17:33:11 Dictated By: DERRICK YOUNG MD [facility]
[2020-11-14 19:19] LABS: HEMOGLOBIN 9.9 g/dL (11.5-16.0)
[2020-11-14] MEDS ORDERED: MELATONIN 10 MG TABLET ONE (20:06)
[2020-11-14] MEDS: PANTOPRAZOLE 40 MG (PROTONIX) VIAL IV SCH (20:25)
[2020-11-14] MEDS ORDERED: MELATONIN 10 MG TABLET PO SCH (21:00)
[2020-11-14] MEDS ORDERED: NON-FORMULARY MEDICATION 1 EA EA (Melatonin 10 MG) PO SCH (21:00)
[2020-11-15] MEDS: NS IV 1000 ML 1,000 ML IV SCH (03:53)
[2020-11-15 04:52] LABS: BASOPHILS % (AUTO) 1 % (0-10); EOSINOPHILS # (AUTO) 0.1 10^3/uL (0.0-0.3); EOSINOPHILS % (AUTO) 2 % (0-10); HEMATOCRIT 31 % (35-52); HEMOGLOBIN 10.3 g/dL (11.5-16.0); LYMPHOCYTES # (AUTO) 1.4 10^3/uL (1.0-4.0); LYMPHOCYTES % (AUTO) 35 % (12-44); MEAN CORPUSCULAR HEMOGLOBIN 32 pg (25-34); MEAN CORPUSCULAR HGB CONC 33 g/dL (32-36); MEAN CORPUSCULAR VOLUME 95 fL (80-99); MEAN PLATELET VOLUME 10.5 fL (9.0-12.2); MONOCYTES # (AUTO) 0.4 10^3/uL (0.0-1.0); MONOCYTES % (AUTO) 11 % (0-12); NEUTROPHILS % (AUTO) 51 % (42-75); PLATELET COUNT 192 10^3/uL (130-400); WHITE BLOOD COUNT 3.9 10^3/uL (4.3-11.0)
[2020-11-15 04:59] LABS: POTASSIUM 3.7 MMOL/L (3.6-5.0)
[2020-11-15 05:00] LABS: CALCIUM 8.5 MG/DL (8.5-10.1)
[2020-11-15 05:05] LABS: CREATININE SERUM 0.86 MG/DL (0.60-1.30)
--- NOTE | 2020-11-15 06:40 | Progress Note - Hospitalist ---
Subjective HPI/CC On Admission Date Seen by Provider: Nov 15, 2020 Time Seen by Provider: 11:30 Chief complaint: GI bleed History present illness: This is an 89-year-old white female who recently had an EGD on Monday at [facility] to check her hiatal hernia repair from years ago and a colonoscopy 1 year ago due to diverticulosis and a previous GI bleed 4 years ago which required multiple transfusions who presented to the [place] [facility] with blood in her stool. She was hypotensive at the walk-in clinic so she was moved over to the ER. Her hemoglobin was stable at that point but due to the history of acute blood loss anemia we will admit her to the ICU. Dr. YOUNG has been consulted. Her son brought her by private vehicle because she refused ambulance transfer. Subjective/Events-last exam Patient doing well No more blood in stool Hemoglobin stable Focused Exam Lactate Level 11/14/20 09:13: Lactic Acid Level 2.52*H 11/14/20 11:10: Lactic Acid Level 0.73 Objective Exam Vital Signs Vital Signs Date Time Temp Pulse Resp B/P (MAP) Pulse Ox O2 Delivery O2 Flow Rate FiO2 11/15/20 13:23 35.9 80 22 141/91 95 Room Air Capillary Refill : Less Than 3 Seconds General Appearance: No Apparent Distress, WD/WN, Chronically ill Results/Procedures Lab Laboratory Tests 11/15/20 04:34 Patient resulted labs reviewed. Assessment/Plan Assessment and Plan Assess & Plan/Chief Complaint Discharge home Critical Care Critically Ill Patient Diagnosis/Problems Diagnosis/Problems (1) GI bleed Status: Acute Qualifiers: GI bleed type/associated pathology: melena Qualified Codes: K92.1 - Melena (2) Dehydration Status: Acute (3) Hypothyroid Qualifiers: Qualified Codes: E03.9 - Hypothyroidism, unspecified ANGEL BOURGEOIS DO Nov 15, 2020 06:40
[2020-11-15] MEDS: PANTOPRAZOLE 40 MG (PROTONIX) VIAL IV SCH (08:15)
[2020-11-15] MEDS ORDERED: LEVOTHYROXINE 100 MCG (LEVOTHROID) TAB PO SCH (09:00)
--- NOTE | 2020-11-15 10:43 | Progress Note ---
Subjective Date Seen by a Provider: Nov 15, 2020 Time Seen by a Provider: 09:00 Subjective/Events-last exam doing well. signs minimal GI bleed. Hb stable. had EGD and colonoscopy within 1 year. hx GERD s/p HH repair. colonoscopy showed diverticulosis. Focused Exam Lactate Level 11/14/20 09:13: Lactic Acid Level 2.52*H 11/14/20 11:10: Lactic Acid Level 0.73 Objective Exam Vital Signs Date Time Temp Pulse Resp B/P (MAP) Pulse Ox O2 Delivery O2 Flow Rate FiO2 11/15/20 10:00 68 18 141/73 97 Room Air 11/15/20 09:00 81 16 152/87 96 Room Air 11/15/20 08:20 95 Room Air 11/15/20 08:14 35.9 11/15/20 08:00 100 24 140/83 97 Room Air 11/15/20 07:08 95 Room Air 11/15/20 07:00 69 21 111/62 92 Room Air 11/15/20 07:00 75 11/15/20 06:00 73 20 114/60 93 Room Air 11/15/20 05:00 77 19 130/71 92 Room Air 11/15/20 04:00 79 16 98/81 97 Room Air 11/15/20 03:58 95 Room Air 11/15/20 03:00 71 20 114/6 94 Room Air 11/15/20 02:00 74 20 116/67 95 Room Air 11/15/20 01:00 92 11/15/20 01:00 92 19 129/70 96 Room Air 11/15/20 00:00 83 16 119/68 94 Room Air 11/14/20 23:59 94 Room Air 11/14/20 23:00 94 22 113/59 93 Room Air 11/14/20 22:00 72 20 113/63 94 Room Air 11/14/20 21:00 78 21 135/70 94 Room Air 11/14/20 20:28 95 Room Air 11/14/20 20:07 36.9 11/14/20 20:00 82 21 151/86 94 Room Air 11/14/20 19:00 81 11/14/20 19:00 81 18 138/71 97 Room Air 11/14/20 18:00 87 18 134/69 95 Room Air 11/14/20 17:00 91 13 161/81 94 Room Air 11/14/20 16:36 99 Room Air 11/14/20 16:11 36.0 11/14/20 16:00 100 16 162/73 99 Room Air 11/14/20 15:00 82 20 132/68 96 Room Air 11/14/20 14:37 36.2 88 100 11/14/20 14:00 88 19 137/84 100 Room Air 11/14/20 13:13 Room Air 11/14/20 13:00 82 11/14/20 13:00 82 14 129/63 95 Room Air 11/14/20 12:38 36.2 95 18 151/92 97 Room Air 11/14/20 11:21 88 17 148/80 96 Room Air I & O 11/15/20 07:00 Intake Total 1850 ml Balance 1850 ml Capillary Refill : Less Than 3 Seconds General Appearance: No Apparent Distress HEENT: PERRL/EOMI Neck: Full Range of Motion Respiratory: Chest Non Tender, Lungs Clear Cardiovascular: Regular Rate, Rhythm Gastrointestinal: normal bowel sounds, non tender, soft Extremity: Normal Capillary Refill Neurologic/Psychiatric: Alert, Oriented x3 Skin: Normal Color Lymphatic: No Adenopathy Results Lab Laboratory Tests 11/14/20 11:10: Lactic Acid Level 0.73 11/14/20 13:30: Hemoglobin 10.6L, Hematocrit 33L 11/14/20 19:15: Hemoglobin 9.9L, Hematocrit 31L 11/15/20 04:34: Hemoglobin 10.3L, Hematocrit 31L, White Blood Count 3.9L, Red Blood Count 3.27L, Mean Corpuscular Volume 95, Mean Corpuscular Hemoglobin 32, Mean Corpuscular Hemoglobin Concent 33, Red Cell Distribution Width 13.5, Platelet Count 192, Mean Platelet Volume 10.5, Immature Granulocyte % (Auto) 0, Neutrophils (%) (Auto) 51, Lymphocytes (%) (Auto) 35, Monocytes (%) (Auto) 11, Eosinophils (%) (Auto) 2, Basophils (%) (Auto) 1, Neutrophils # (Auto) 2.0, Lymphocytes # (Auto) 1.4, Monocytes # (Auto) 0.4, Eosinophils # (Auto) 0.1, Basophils # (Auto) 0.0, Immature Granulocyte # (Auto) 0.0, Sodium Level 139, Potassium Level 3.7, Chloride Level 107, Carbon Dioxide Level 22, Anion Gap 10, Blood Urea Nitrogen 8, Creatinine 0.86, Estimat Glomerular Filtration Rate 62, BUN/Creatinine Ratio 9, Glucose Level 83, Calcium Level 8.5 Assessment/Plan Assessment/Plan Assess & Plan/Chief Complaint GI bleed. likely diverticular bleed and slowed to stopped. recent scopes done. will advance diet. DERRICK YOUNG MD Nov 15, 2020 10:43
--- NOTE | 2020-11-15 12:22 | Discharge Summary ---
Discharge Summary Hospital Course Was the Problem List Reviewed?: Yes Problems/Dx: (1) GI bleed Status: Acute Qualifiers: Qualified Codes: K92.1 - Melena (2) Dehydration Status: Acute (3) Hypothyroid Qualifiers: Qualified Codes: E03.9 - Hypothyroidism, unspecified Hospital Course Date of Admission: Nov 14, 2020 at 12:22 Admission Diagnosis : Family Physician/Provider: Silas Fleming MD Date of Discharge: 11/15/20 Discharge Diagnosis: Melena, anemia, frail status Hospital Course: Patient had an uneventful hospital course she was admitted for concern of GI bleed which she has had before and is significant blood loss situation so she was placed in the ICU for close monitoring. Hemoglobin remained stable Dr. YOUNG was consulted and patient had no other melena and hemoglobin remained stable and patient was discharged in improved condition. Labs and Pending Lab Test: Laboratory Tests 11/14/20 13:30: Hemoglobin 10.6L, Hematocrit 33L 11/14/20 19:15: Hemoglobin 9.9L, Hematocrit 31L 11/15/20 04:34: Hemoglobin 10.3L, Hematocrit 31L, White Blood Count 3.9L, Red Blood Count 3.27L, Mean Corpuscular Volume 95, Mean Corpuscular Hemoglobin 32, Mean Corpuscular Hemoglobin Concent 33, Red Cell Distribution Width 13.5, Platelet Count 192, Mean Platelet Volume 10.5, Immature Granulocyte % (Auto) 0, Neutrophils (%) (Auto) 51, Lymphocytes (%) (Auto) 35, Monocytes (%) (Auto) 11, Eosinophils (%) (Auto) 2, Basophils (%) (Auto) 1, Neutrophils # (Auto) 2.0, Lymphocytes # (Auto) 1.4, Monocytes # (Auto) 0.4, Eosinophils # (Auto) 0.1, Basophils # (Auto) 0.0, Immature Granulocyte # (Auto) 0.0, Sodium Level 139, Potassium Level 3.7, Chloride Level 107, Carbon Dioxide Level 22, Anion Gap 10, Blood Urea Nitrogen 8, Creatinine 0.86, Estimat Glomerular Filtration Rate 62, BUN/Creatinine Ratio 9, Glucose Level 83, Calcium Level 8.5 Home Meds Active Metoprolol Succinate 25 Mg Tab.er.24h 25 Mg PO DAILY Reported Claritin (Loratadine) 10 Mg Tablet 10 Mg PO DAILY Probiotic (L.acidoph & Paracasei,B.lactis) 1 Each Capsule 1 Each PO DAILY Calcium Carbonate 600 Mg Tablet 600 Mg PO PRN Vitamin D3 (Cholecalciferol (Vitamin D3)) 1,250 Mcg Capsule 5,000 Mcg PO WEEK Calcium (Calcium Carbonate) 500 Mg Tab.chew 99 Mg PO WEEK Klor-Con 10 (Potassium Chloride) 10 Meq Tablet.er 99 Meq PO WEEK Magnesium 300 mg Capsule (Magnesium Oxide/Mag Aa Chelate) 300 Mg Capsule 200 Mg PO WEEK Trazodone HCl 100 Mg Tablet 100 Mg PO HS Levothyroxine Sodium 100 Mcg Tablet 100 Mcg PO DAILY Melatonin 10 Mg Capsule 10 Mg PO HS [Skelatal Support Vit] 1 Tab PO BID Benefiber (Wheat Dextrin) 144 Gm Powder 1 Tsp PO BID Assessment/Pt Instructions Dr. Fleming this week Discharge Planning: <30 minutes discharge planning Discharge Instructions Discharge Diet: No Restrictions Activity as Tolerated: Yes Discharge Physical Examination Vital Signs Vital Signs Date Time Temp Pulse Resp B/P (MAP) Pulse Ox O2 Delivery O2 Flow Rate FiO2 11/15/20 12:00 91 22 141/91 98 Room Air 11/15/20 08:14 35.9 General Appearance: No Apparent Distress, WD/WN, Chronically ill Allergies: Coded Allergies: codeine (Unverified Allergy, Unknown, NAUSEA, 07/26/18) nut - unspecified (Verified Allergy, Unknown, anaphylaxis , 07/31/20) hydrocodone (Verified Adverse Reaction, Unknown, nausea/vomiting , 07/31/20) nitrofurantoin (Verified Adverse Reaction, Unknown, nausea/vomiting , 07/31/20) Discharge Summary Date of Admission Nov 14, 2020 at 12:22 Date of Discharge Discharge Date: Nov 15, 2020 Admission Diagnosis Assessment: GI bleed with melena suspicion for upper or lower GI bleed Acute blood loss anemia drop 2 points from [facility] to current EGD on Monday at [facility] Diverticulosis Presbycusis Dehydration with elevated lactic acid due to volume depletion Plan: Dr. YOUNG consult ICU Monitor hemoglobin IV fluids Discharge Diagnosis (1) GI bleed Status: Acute Qualifiers: Qualified Codes: K92.1 - Melena (2) Dehydration Status: Acute (3) Hypothyroid Qualifiers: Qualified Codes: E03.9 - Hypothyroidism, unspecified ANGEL BOURGEOIS DO Nov 15, 2020 12:22
[2020-11-15 13:23] VITALS: BP 141/91
== END 2020-11-15 13:15 | disposition home or self-care (01) | DRG 378 ==
LOC: EDUNIT# 08:58 → ER FS 09:01 → ICU 12:22
PROVIDERS: ADMIT Internal Medicine; ATTEND Internal Medicine
DX: K57.91 Diverticulosis of intestine, part unspecified, without perforation or abscess with bleeding (principal); D62 Acute posthemorrhagic anemia; H91.10 Presbycusis, unspecified ear; E86.0 Dehydration; R74.02 Elevation of levels of lactic acid dehydrogenase [LDH]; E86.9 Volume depletion, unspecified; E03.9 Hypothyroidism, unspecified; K21.9 Gastro-esophageal reflux disease without esophagitis; I48.91 Unspecified atrial fibrillation; E78.00 Pure hypercholesterolemia, unspecified; I10 Essential (primary) hypertension; K58.9 Irritable bowel syndrome, unspecified; M19.90 Unspecified osteoarthritis, unspecified site; H26.9 Unspecified cataract; Z90.49 Acquired absence of other specified parts of digestive tract; Z88.5 Allergy status to narcotic agent; K27.4 Chronic or unspecified peptic ulcer, site unspecified, with hemorrhage; G89.29 Other chronic pain; M54.9 Dorsalgia, unspecified; Z79.899 Other long term (current) drug therapy; Z79.82 Long term (current) use of aspirin; Z79.890 Hormone replacement therapy; Z79.2 Long term (current) use of antibiotics
CPT/HCPCS: 36415; 74177; 80048; 80053; 82274; 83605; 83690; 85014; 85018; 85025; 85610; 85730; 87081; 93005; 93041